=== PATIENT | female | born 2000 | race Caucasian/White ===

== ENCOUNTER 2024-11-23 12:30 | Outpatient (CLI) | payer OTHER, SELFPAY ==
[2024-11-23 13:52] LABS: Add Urine Microscopic? YES; Appearance Urine Cloudy (Clear); Bacteria Urine 4+ /hpf; Bilirubin Urine Negative (Negative); Blood Urine Negative (Negative); Color Urine Yellow (Yellow); Glucose Urine UA Negative (Negative); Ketones Urine Negative (Negative); Leukocyte Esterase Ur 3+ LEU/UL (Negative); Nitrate Urine Negative (Negative); Non Pathogenic Casts 0-2; Protein Urine Negative (Negative); RBC Urine 0-2 /hpf (0-2); Specific Grav Ur 1.018 (1.001-1.035); Squamous Epithelial Cell Urine Moderate /hpf (Few); Urobilinogen Urine 0.2 mg/dL (<2.0); WBC Urine 21-50 /hpf (0-3); pH Urine 6.5 (5.0-9.0)
[2024-11-23 13:58] LABS: OBXCEM ROM Plus Negative (Negative)
--- OUTSIDE RECORDS SUMMARY | 2024-11-25 00:24 | XMS_ITS ---
Author Organization Unknown Address [address] [place] [address] [phone] Phone Care Team Providers Care Frame Cleaner Name Role Phone BRAVO MARKEL Attending Unavailable LYN THORNE Primary Unavailable Immunization Immunization Date Status Additional Notes Code Code System MMR 06/12/2003 Completed 03 CVX MMR 06/16/2007 Completed 03 CVX IPV 2002 Completed 10 CVX IPV 03/16/2003 Completed 10 CVX IPV 04/24/2003 Completed 10 CVX IPV 06/16/2007 Completed 10 CVX DTaP 2002 Completed 20 CVX DTaP 03/16/2003 Completed 20 CVX DTaP 04/24/2003 Completed 20 CVX DTaP 11/08/2003 Completed 20 CVX DTaP 06/16/2007 Completed 20 CVX varicella 06/12/2003 Completed 21 CVX varicella 06/16/2007 Completed 21 CVX Hib-Hep B 2002 Completed 51 CVX Hib-Hep B 03/16/2003 Completed 51 CVX Hib-Hep B 06/12/2003 Completed 51 CVX Hep A, ped/adol, 2 dose 07/28/2017 Completed 83 CVX Hep A, ped/adol, 2 dose 06/06/2014 Completed 83 CVX influenza, unspecified formulation 07/26/2003 Completed 88 CVX influenza, unspecified formulation 11/08/2003 Completed 88 CVX pneumococcal conjugate PCV 7 2002 Completed 100 CVX pneumococcal conjugate PCV 7 04/24/2003 Completed 100 CVX pneumococcal conjugate PCV 7 06/12/2003 Completed 100 CVX pneumococcal conjugate PCV 7 11/08/2003 Completed 100 CVX meningococcal MCV4P 06/06/2014 Completed 114 CVX Tdap 06/06/2014 Completed 115 CVX Tdap 02/09/2024 Completed 115 CVX Meningococcal MCV4O 04/25/2020 Completed 136 CVX Influenza, split virus, quadrivalent, PF 07/28/2017 Completed 150 CVX meningococcal B, OMV 04/25/2020 Completed 163 CVX HPV9 07/28/2017 Completed 165 CVX HPV9 06/06/2014 Completed 165 CVX COVID-19, mRNA, LNP-S, PF, 1 00 mcg/0.5mL dose or 50 mcg/0.25mL dose 01/25/2021 Completed 207 CVX COVID-19, mRNA, LNP-S, PF, 1 00 mcg/0.5mL dose or 50 mcg/0.25mL dose 01/09/2022 Completed 207 CVX Results TEST SERUM - Colle ct Date/Time: 01/13/2024 09:11 [facility] ID: [id number] [address] [place], [place], [id number] LOINC: Test Value Unit Reference Range Code Code System Flag SERUM PREG NEGATIVE Social History Type Status Start Date End Date Code Code Syst em Smoking History Never smoker (Never Smoked) 904804215 SNOMED CT Sex Female Assessment You had the following problems:OTHER GENERAL SYMPTOMS AND SIGNSABDOMINAL PAINENCOUNTER FOR SCREENING FOR INFECTIONS WITH A PREDOMINANTLY SEXUAL MODE OF TRANSENCOUNTER FOR SCREENING FOR RESPIRATORY TUBERCULOSISLEFT LOWER QUADRANT PAINENCOUNTER FOR GYNECOLOGICAL EXAMINATION (GENERAL) (ROUTINE) WITHOUT ABNORMAL FIN Hospital Discharge Instructions Should you have any questions prior to discharge, please contact a member of your healthcare team. If you have left the hospital and have any questions, please contact your primary care physician. Reason For Referral No Data Found Problems Problem Start Date Resolved Date Status Code Code System OTHER GENERAL SYMPTOMS AND SIGNS active 500648087 SNOMED-CT ABDOMINAL PAIN active 59088308 SNOME D-CT ENCOUNTER FOR SCREENING FOR INFECTIONS WITH A PREDOMINANTLY SEXUAL MODE OF TRANS active 519991122 SNOMED- CT ENCOUNTER FOR SCREENING FOR RESPIRATORY TUBERCULOSIS active 268773129 SNO MED-CT LEFT LOWER QUADRANT PAIN active 16631 6002 SNOMED-CT ENCOUNTER FOR GYNECOLOGICAL EXAMINATION (GENERAL) (ROUTINE) WITHOUT ABNORMAL FIN active 20321729 SNOMED- CT Plan of Treatment No Data Found Encounters Encounter Diagnosis Start Date Code Code Sys tem Excessive and frequent menstruation with regular cycle 01/13/2024 SNOMED-CT Personal Care Team Section Performer Name Performer Role Active Date Inactive YULIANA Garcia PCP - Primary care physician 2022-09-10
--- OUTSIDE RECORDS SUMMARY | 2024-11-25 00:24 | XMS_ITS ---
Author Organization Unknown Address [address] [place] [address] [phone] Phone Care Team Providers Care Perinatal Social Worker Name Role Phone BRIAN JENSENH Attending Unavailable LYN THORNE Primary Unavailable Immunization [...] mcg/0.25mL dose 01/09/2022 Completed 207 CVX Results RESPIRATORY 4 PLEX COVID FLU RSV PCR - Collect Date/Time: 09/29/2023 10:15 [facility] ID: [id number] [address] [place], [place], [id number] LOINC: 30144-9 Test Value Unit Reference Range Code Code System Flag SARS CoV2 PCR NEGATIVE FLU A PCR NEGATIVE FLU B PCR NEGATIVE RSV PCR NEGATIVE SEND TO [facility]? YES A Social History Type Status Start Date End Date Code Code Syst em Smoking History Never smoker (Never Smoked) 209619859 SNOMED CT Sex Female Assessment You had [...] System OTHER GENERAL SYMPTOMS AND SIGNS active 792370212 SNOMED-CT ABDOMINAL PAIN active 81283609 SNOME D-CT ENCOUNTER FOR SCREENING FOR INFECTIONS WITH A PREDOMINANTLY SEXUAL MODE OF TRANS active 691761433 SNOMED- CT ENCOUNTER FOR SCREENING FOR RESPIRATORY TUBERCULOSIS active 894337319 SNO MED-CT LEFT LOWER QUADRANT PAIN active 77058 6002 SNOMED-CT ENCOUNTER FOR GYNECOLOGICAL EXAMINATION (GENERAL) (ROUTINE) WITHOUT ABNORMAL FIN active 76041925 SNOMED- CT Plan of Treatment No Data Found Encounters Encounter Diagnosis Start Date Code Code Sys tem Nasal congestion 09/29/2023 37063816 SNOMED-CT Personal Care Team Section Performer Name Performer Role Active Date Inactive YULIANA Garcia PCP - Primary care physician 2022-09-10
--- OUTSIDE RECORDS SUMMARY | 2024-11-25 00:24 | XMS_ITS ---
Author Organization Unknown Address [address] [place] [phone] Phone Care Team Providers Care Gmat Instructor Name Role Phone BRIAN JENSENH Attending Unavailable [...] COVID FLU RSV PCR - Collect Date/Time: 10/21/2023 14:45 [facility] ID: [id number] [address] [place], [place], [phone] LOINC: 20068-4 Test Value Unit Reference Range Code Code System Flag SARS CoV2 PCR NEGATIVE FLU A PCR NEGATIVE FLU B PCR NEGATIVE RSV PCR NEGATIVE SEND TO [facility]? YES A Social History Type Status Start Date End Date Code Code Syst em Smoking History Never smoker (Never Smoked) 028261482 SNOMED CT Sex Female Assessment You had [...] System OTHER GENERAL SYMPTOMS AND SIGNS active 113044087 SNOMED-CT ABDOMINAL PAIN active 32584656 SNOME D-CT ENCOUNTER FOR SCREENING FOR INFECTIONS WITH A PREDOMINANTLY SEXUAL MODE OF TRANS active 699723204 SNOMED- CT ENCOUNTER FOR SCREENING FOR RESPIRATORY TUBERCULOSIS active 607287662 SNO MED-CT LEFT LOWER QUADRANT PAIN active 06586 6002 SNOMED-CT ENCOUNTER FOR GYNECOLOGICAL EXAMINATION (GENERAL) (ROUTINE) WITHOUT ABNORMAL FIN active 97778164 SNOMED- CT Plan of Treatment No Data Found Encounters Encounter Diagnosis Start Date Code Code Sys tem Other general symptoms and signs 10/21/2023 SNOMED-CT Personal Care Team Section Performer Name Performer Role Active Date Inactive Da YULIANA Alas PCP - Primary care physician 2022-09-10
--- OUTSIDE RECORDS SUMMARY | 2024-11-25 00:25 | XMS_ITS ---
Author Organization Unknown Address [address] [place] [address] [phone] Phone Care Team Providers Care Diesel Engine Fitter Name Role Phone SCOOBY MONTOYA Attending Unavailable LYN THORNE Primary Unavailable Immunization [...] mcg/0.25mL dose 01/09/2022 Completed 207 CVX Results BETA HCG-QUANT - Collect Bertram e/Time: 07/28/2024 08:44 [facility] ID: [id number] [address] [place], [place], [id number] LOINC: 66346-7 Test Value Unit Reference Range Code Code System Flag BETA HCG-QUANT 8219.20 mIU/mL L=0.00 H=6.00 53039-4 LOINC H Social History Type Status Start Date End Date Code Code Syst em Smoking History Never smoker (Never Smoked) 949838162 SNOMED CT Sex Female Assessment You had [...] System OTHER GENERAL SYMPTOMS AND SIGNS active 546113743 SNOMED-CT ABDOMINAL PAIN active 62495483 SNOME D-CT ENCOUNTER FOR SCREENING FOR INFECTIONS WITH A PREDOMINANTLY SEXUAL MODE OF TRANS active 865339959 SNOMED- CT ENCOUNTER FOR SCREENING FOR RESPIRATORY TUBERCULOSIS active 027717960 SNO MED-CT LEFT LOWER QUADRANT PAIN active 65606 6002 SNOMED-CT ENCOUNTER FOR GYNECOLOGICAL EXAMINATION (GENERAL) (ROUTINE) WITHOUT ABNORMAL FIN active 60886492 SNOMED- CT Plan of Treatment No Data Found Encounters Encounter Diagnosis Start Date Code Code Sys tem Encounter for test, result positive 07/28/20 SNOMED-CT Personal Care Team Section Performer Name Performer Role Active Date Inactive YULIANA Garcia PCP - Primary care physician 2022-09-10
--- OUTSIDE RECORDS SUMMARY | 2024-11-25 00:25 | XMS_ITS ---
Author Organization Unknown Address [address] [place] [address] [phone] Phone Care Team Providers Care Cream Dipper Name Role Phone ALLYSSA GREENBERG Attending Unavailable LYN THORNE Primary Unavailable Immunization [...] mcg/0.25mL dose 01/09/2022 Completed 207 CVX Results CBC W/ DIFF - Collect Date/T car: 03/04/2024 11:10 [facility] ID: [id number] [address] [place], [place], [id number] LOINC: 69556-2 Test Value Unit Reference Range Code Code System Flag WBC 10.2 10^3uL L=4.8 H=10.8 RBC 4.45 10^6uL L=4.20 H=5.40 HEMOGLOBIN 13.2 g/dL L=12.0 H=16.0 718-7 LOINC HEMATOCRIT 39.1 VOL% L=37.0 H=47.0 4544-3 LOINC MCV 87.9 fL L=81.0 H=99.0 MCH 29.7 pg L=27.0 H=32.0 MCHC 33.8 g/dL L=32.0 H=36.0 PLATELETS 313 10^3uL L=100 H=400 94950-0 LOINC RDW 11.8 % L=11.7 H=15.5 %GRAN 62.7 % L=40.0 H=70.0 83595-0 LOINC %LYMPH 31.1 % L=20.0 H=45.0 736-9 LOINC %MONO 4.9 % L=2.0 H=10.0 68268-2 LOINC %EOS 0.7 % L=0.0 H=6.0 713-8 LOINC %BASO 0.3 % L=0.0 H=3.0 706-2 LOINC #NEUT 6.4 10^3uL L=1.9 H=7.6 87212-1 LOINC #LYMPH 3.2 10^3uL L=0.9 H=4.9 02866-9 LOINC #MONO 0.5 10^3uL L=0.1 H=0.9 54810-4 LOINC #EOS 0.1 10^3uL L=0.0 H=0.6 712-0 LOINC #BASO 0.03 10^3uL L=0.00 H=0.10 83208-9 LOINC #IM GRANS 0.0 10^3uL L=0.0 H=7.0 03183-3 LOINC %IM GRANS 0.3 % L=0.0 H=5.0 08344-5 LOINC %NRB 0.0 L=0.0 H=0.2 91103-9 LOINC #NRB 0.000 L=0.000 H=0.012 23404-2 LOINC MANUAL DIFF NOT INDICATED RBC MORPH NOT INDICATED COMPREHENSIVE METABOLIC PANE L - Collect Date/Time: 03/04/2024 11:10 [facility] ID: [id number] [address] [place], [place], [id number] LOINC: 93923-9 Test Value Unit Reference Range Code Code System Flag FASTING NO BUN 9 mg/dL L=7 H=20 3094-0 LOINC CREATININE 0.80 mg/dL L=0.52 H=1.04 2160-0 LOINC GLUCOSE 88 mg/dL L=74 H=106 2345-7 LOINC SODIUM 140 mmol/L L=132 H=144 2951-2 LOINC POTASSIUM 3.7 mmol/L L=3.5 H=5.1 2823-3 LOINC CHLORIDE 106 mmol/L L=98 H=107 2075-0 LOINC CO2 22.0 mmol/L L=22.0 H=30.0 8-9 LOINC ANION GAP 16 L=10 H=20 47017-6 LOINC OSMOLALITY 288 mOs/kG L=280 H=296 01816-4 LOINC BUN/CREAT 11.3 3097-3 LOINC CALCIUM 9.7 mg/dL L=8.3 H=10.5 54729-4 LOINC AST 25 U/L L=15 H=46 1920-8 LOINC ALT 26 U/L L=9 H=72 1742-6 LOINC ALKALINE PHOS 58 U/L L=38 H=126 6768-6 LOINC TOTAL BILI 0.3 mg/dL L=0.2 H=1.3 1975-2 LOINC ALBUMIN 4.2 G/dL L=3.5 H=5.0 1751-7 LOINC TOTAL PROTEIN 7.6 g/L L=6.3 H=8.2 2885-2 LOINC A/G RATIO 1.2 37328-8 LOINC AGE 23 61853-1 LOINC eGFR NON-AFR 96 ml/min eGFR AFR AMER 116 ml/min TSH / REFLEX FT4 - Collect D ate/Time: 03/04/2024 11:10 [facility] ID: [id number] [address] [place], [place], [id number] LOINC: Test Value Unit Reference Range Code Code System Flag TSH 0.685 uIU/L L=0.470 H=4.680 71281-7 LOINC Social History Type Status Start Date End Date Code Code Syst em Smoking History Never smoker (Never Smoked) 535342786 SNOMED CT Sex Female Assessment You had [...] System OTHER GENERAL SYMPTOMS AND SIGNS active 866631508 SNOMED-CT ABDOMINAL PAIN active 27795637 SNOME D-CT ENCOUNTER FOR SCREENING FOR INFECTIONS WITH A PREDOMINANTLY SEXUAL MODE OF TRANS active 390479503 SNOMED- CT ENCOUNTER FOR SCREENING FOR RESPIRATORY TUBERCULOSIS active 143255478 SNO MED-CT LEFT LOWER QUADRANT PAIN active 90455 6002 SNOMED-CT ENCOUNTER FOR GYNECOLOGICAL EXAMINATION (GENERAL) (ROUTINE) WITHOUT ABNORMAL FIN active 45611720 SNOMED- CT Plan of Treatment No Data Found Encounters Encounter Diagnosis Start Date Code Code Sys tem Other fatigue 03/04/2024 SNOMED-CT Personal Care Team Section Performer Name Performer Role Active Date Inactive YULIANA Garcia PCP - Primary care physician 2022-09-10
--- OUTSIDE RECORDS SUMMARY | 2024-11-25 00:25 | XMS_ITS ---
Author Organization Unknown Address [address] [place] [address] [phone] Phone Care Team Providers Care Central Sterile Tech Name Role Phone ALLYSSA GREENBERG Attending Unavailable [...] Results BETA HCG-QUANT - Collect Bertram e/Time: 04/29/2024 14:20 [facility] ID: [id number] [address] [place], [place], [phone] LOINC: 47345-7 Test Value Unit Reference Range Code Code System Flag BETA HCG-QUANT < 2.39 mIU/mL L=0.00 H=6.00 41589-0 LOINC Social History Type Status Start Date End Date Code Code Syst em Smoking History Never smoker (Never Smoked) 197414115 SNOMED CT Sex Female Assessment You had [...] System OTHER GENERAL SYMPTOMS AND SIGNS active 075678942 SNOMED-CT ABDOMINAL PAIN active 05291733 SNOME D-CT ENCOUNTER FOR SCREENING FOR INFECTIONS WITH A PREDOMINANTLY SEXUAL MODE OF TRANS active 020813602 SNOMED- CT ENCOUNTER FOR SCREENING FOR RESPIRATORY TUBERCULOSIS active 034501821 SNO MED-CT LEFT LOWER QUADRANT PAIN active 00346 6002 SNOMED-CT ENCOUNTER FOR GYNECOLOGICAL EXAMINATION (GENERAL) (ROUTINE) WITHOUT ABNORMAL FIN active 45534244 SNOMED- CT Plan of Treatment No Data Found Encounters Encounter Diagnosis Start Date Code Code Sys tem test positive 04/29/2024 [id number] [facility] ED-CT Personal Care Team Section Performer Name Performer Role Active Date Inactive YULIANA Garcia PCP - Primary care physician 2022-09-10
--- OUTSIDE RECORDS SUMMARY | 2024-11-25 00:25 | XMS_ITS | Data Portability ---
Author Organization [facility] [place] Address [address] [place] [address] [place] [address] Care Team Providers Care Chief Cruiser Name Role Phone ABHILASH PRINCE Primary Care Provider YARI SPIVEY Primary Care Provider Assessment No assessment recorded. Plan of Treatment Reminders Order Date Submit Date Provider Last Modified By Organization Details Last Modified Time Details Appointments U/S OB BASELIN E 2024 01:30P M ULTRASOUND Not available Not available Not available OB ROUTINE 2024 02:00P M SADIE RABAGO MD Not available Not available Not available Lab drug screen, urine 2023 024 [place], [address], [place], [address], 10/21/2024 16:15:15 Referral None recorde d. Procedures None recorde d. Surgeries None recorde d. Imaging US, obstetr ic, nuchal translu cency 2023 [address], [address], [place], [address], 09/23/2024 21:15:15 US, obstetr ic, 2nd or 3rd trimest er [facility]24 [facility] [place], [address], [place], [address], 11/14/2024 18:54:09 Medication Orders None recorde d. Patient TargetsNo targets recorded. Patient InstructionsNo instructions recorded. Reason for Referral None Reported. Results Created Date Observation Date Name Description Value Unit Range Abnormal Flag Note LastModifiedBy Organization Detail LastModifiedTime 09/09/20 24 09/09/2024 [UNIT Y] ANEUP LOIDY NIPT fraction 5.6% normal Not Available [facility] [address] [facility], [place], [address], 09/09/2024 02:02:32 09/09/20 24 09/09/2024 [UNIT Y] ANEUP LOIDY NIPT 22Q11.2 microdeletio n LOW RISK <1 in 10,000 normal Not Available [facility] [address] [facility], [place], [address], 09/09/2024 02:02:32 09/09/20 24 09/09/2024 [UNIT Y] ANEUP LOIDY NIPT sex chromosome aneuploidy NOT DETECT ED normal Not Available [facility] [address] [facility], [place], [address], 09/09/2024 02:02:32 09/09/20 24 09/09/2024 [UNIT Y] ANEUP LOIDY NIPT monosomy X LOW RISK <1 in 10,000 normal Not Available [facility] [address] [facility], [place], [address], 09/09/2024 02:02:32 09/09/20 24 09/09/2024 [UNIT Y] ANEUP LOIDY NIPT trisomy 13 LOW RISK <1 in 10,000 normal Not Available [facility] [address] [facility], [place], [address], 09/09/2024 02:02:32 09/09/20 24 09/09/2024 [UNIT Y] ANEUP LOIDY NIPT trisomy 18 LOW RISK <1 in 10,000 normal Not Available [facility] [address] [facility], [place], [address], 09/09/2024 02:02:32 09/09/20 24 09/09/2024 [UNIT Y] ANEUP LOIDY NIPT trisomy 21 LOW RISK <1 in 10,000 normal Not Available [facility] [address] [facility] [address], [place], [address], 09/09/2024 02:02:32 09/09/20 24 09/09/2024 [UNIT Y] ANEUP LOIDY NIPT sex MALE normal Not Available [facility] [address] [facility] [address], [place], [address], 09/09/2024 02:02:32 09/09/20 24 09/09/2024 [UNIT Y] ANEUP LOIDY NIPT gestation SINGLE TON normal Not Available [facility] [address] [facility] [address], [place], [address], 09/09/2024 02:02:32 09/09/20 24 09/09/2024 [UNIT Y] ANEUP LOIDY NIPT for detailed report, see pdf See PDF normal Not Available [facility] [address] [facility] [address], [place], [address], 09/09/2024 02:02:32 09/09/20 24 09/09/2024 [UNIT Y] VALENTINA Sutherland sickle cell disease/beta -thalassemia /hemoglobino pathies carrier screen NEGATI VE normal Not Available [facility] [address] [facility] [address], [place], [address], 09/09/2024 02:46:19 09/09/20 24 09/09/2024 [UNIT Y] VALENTINA Sutherland alpha-thalas semia carrier screen NEGATI VE normal Not Available [facility] [address] [facility] [address], [place], [address], 09/09/2024 02:46:19 09/09/20 24 09/09/2024 [UNIT Y] VALENTINA Sutherland cystic fibrosis carrier screen NEGATI VE normal Not Available [facility] [address] [facility] [address], [place], [address], 09/09/2024 02:46:19 09/09/20 24 09/09/2024 [UNIT Y] VALENTINA Suhterland spinal muscular atrophy carrier screen NEGATI VE 2 SMN1 copies , SNP not presen t normal Not Available [facility] [address], [place], [address], 09/09/2024 02:46:19 09/09/20 24 09/09/2024 [UNIT Y] VALENTINA Sutherland for detailed report, see pdf See PDF normal Not Available [facility] [address], [place], [address], 09/09/2024 02:46:19 08/26/20 24 08/26/2024 CT/GC AND TRICH OMONA S VAGIN ATUL (RRNA ), URINE chlamydia trachomatis, PCR Negati ve negati ve Not Available [facility] (Lab) [address] [address], [place], [address], 08/27/2024 13:45:02 08/26/20 24 08/26/2024 CT/GC AND TRICH OMONA S VAGIN ATUL (RRNA ), URINE neisseria gonorrhoeae, PCR Negati ve negati ve Not Available [facility] (Lab) [address], [place], [address], 08/27/2024 13:45:02 08/26/20 24 08/26/2024 CT/GC AND TRICH OMONA S VAGIN ATUL (RRNA ), URINE trichomonas vaginalis ribosomal RNA (rrna) Negati ve negati ve Not Available [facility] (Lab) [address] [address], [place], [address], 08/27/2024 13:45:02 09/01/20 24 09/01/2024 CBC W/DIF F WBC 11.1 10'3/ uL 3.5-10 .5 high Not Available [facility] (Lab) [address] [address], [place], [address], 09/02/2024 12:28:15 09/01/20 24 09/01/2024 CBC W/DIF F RBC 4.37 10'6/ uL (based on docume nted legal sex) 3.80-5 .20 Not Available [facility] (Lab) [address], [place], [address], 09/02/2024 12:28:15 09/01/20 24 09/01/2024 CBC W/DIF F HGB 12.9 g/dL (based on docume nted legal sex) 11.6-1 5.4 Not Available [facility] (Lab) [address], [place], [address], 09/02/2024 12:28:15 09/01/20 24 09/01/2024 CBC W/DIF F HCT 38.7 % (based on docume nted legal sex) 34.0-4 5.0 Not Available [facility] (Lab) [address], [place], [address], 09/02/2024 12:28:15 09/01/20 24 09/01/2024 CBC W/DIF F MCV 88.6 fL 80.0-9 9.0 Not Available [facility] (Lab) [address], [place], [address], 09/02/2024 12:28:15 09/01/20 24 09/01/2024 CBC W/DIF F MCH 29.5 pg 27.0-3 4.0 Not Available [facility] (Lab) [address], [place], [address], 09/02/2024 12:28:15 09/01/20 24 09/01/2024 CBC W/DIF F MCHC 33.3 g/dL 32.0-3 5.5 Not Available [facility] (Lab) [address], [place], [address], 09/02/2024 12:28:15 09/01/20 24 09/01/2024 CBC W/DIF F RDW 11.9 % 11.0-1 5.0 Not Available [facility] (Lab) [address], [place], [address], 09/02/2024 12:28:15 09/01/20 24 09/01/2024 CBC W/DIF F plt 305 10'3/ uL 150-40 0 Not Available [facility] (Lab) [address] [address], [place], [address], 09/02/2024 12:28:15 09/01/20 24 09/01/2024 CBC W/DIF F MPV 11.4 fL 8.8-12 .1 Not Available [facility] (Lab) [address] [address], [place], [address], 09/02/2024 12:28:15 09/01/20 24 09/01/2024 CBC W/DIF F NRBC's 0.0 % 0.0 Not Available [facility] (Lab) [address] [address], [place], [address], 09/02/2024 12:28:15 09/01/20 24 09/01/2024 CBC W/DIF F absolute NRBCs 0.0 10'3/ uL no refere nce range establ ished Not Available [facility] (Lab) [address] [address], [place], [address], 09/02/2024 12:28:15 09/01/20 24 09/01/2024 CBC W/DIF F neutrophils 70.9 % 34.0-7 3.0 Not Available [facility] (Lab) [address] [address], [place], [address], 09/02/2024 12:28:15 09/01/20 24 09/01/2024 CBC W/DIF F lymphocytes 23.3 % 15.0-5 0.0 Not Available [facility] (Lab) [address] [address], [place], [address], 09/02/2024 12:28:15 09/01/20 24 09/01/2024 CBC W/DIF F monocytes 4.6 % 1.0-15 .0 Not Available [facility] (Lab) [address], [place], [address], 09/02/2024 12:28:15 09/01/20 24 09/01/2024 CBC W/DIF F eosinophils 0.6 % 0.0-8. 0 Not Available [facility] (Lab) [address] [address], [place], [address], 09/02/2024 12:28:15 09/01/20 24 09/01/2024 CBC W/DIF F basophils 0.3 % 0.0-2. 0 Not Available [facility] (Lab) [address] [address], [place], [address], 09/02/2024 12:28:15 09/01/20 24 09/01/2024 CBC W/DIF F immature granulocytes 0.3 % no define d refere nce range Not Available [facility] (Lab) [address] [address], [place], [address], 09/02/2024 12:28:15 09/01/20 24 09/01/2024 CBC W/DIF F absolute neutrophils 7.9 10'3/ uL 1.5-8. 0 Not Available [facility] (Lab) [address] [address], [place], [address], 09/02/2024 12:28:15 09/01/20 24 09/01/2024 CBC W/DIF F absolute lymphocytes 2.6 10'3/ uL 1.0-4. 0 Not Available [facility] (Lab) [address] [address], [place], [address], 09/02/2024 12:28:15 09/01/20 24 09/01/2024 CBC W/DIF F absolute monocytes 0.5 10'3/ uL 0.2-1. 0 Not Available [facility] (Lab) [address] [address], [place], [address], 09/02/2024 12:28:15 09/01/20 24 09/01/2024 CBC W/DIF F absolute eosinophils 0.1 10'3/ uL 0.0-0. 6 Not Available [facility] (Lab) [address] [address], [place], [address], 09/02/2024 12:28:15 09/01/20 24 09/01/2024 CBC W/DIF F absolute basophils 0.0 10'3/ uL 0.0-0. 3 Not Available [facility] (Lab) [address] [address], [place], [address], 09/02/2024 12:28:15 09/01/20 24 09/01/2024 CBC W/DIF F absolute immature granulocytes 0.0 10'3/ uL 0.00-0 .10 2023 3:16 AM: P indic ates parti al resul ts on a panel have been relea sed. Addit ional resul ts will follo w. 2023 3:16 AM: This resul t has been final verif ied. No addit ional or mojica ed resul ts are expec kalin. Not Available [facility] (Lab) [address], [place], [address], 09/02/2024 12:28:15 09/01/20 24 09/01/2024 HEPAT ITIS B SURFA CE ANTIG EN hepatitis B surface antigen Non-re active non-re active This assay was perfo rmed using [employer] n reage nts and test kits. Value s obtai palmer with other assay metho ds or kits canno t be used inter mojica eably . Not Available [facility] (Lab) [address], [place], [address], 09/02/2024 12:28:16 09/01/20 24 09/01/2024 HIV 1/2 ANTIG EN/AN TIBOD Y, REFLE X CONFI RMATI ON HIV antigen/anti body Nonrea ctive nonrea ctive HIV-1 antig en and HIV-1 /HIV- 2 antib odies were not detec kalin. No labor atory evide nce of HIV infec tion. Not Available [facility] (Lab) [address], [place], [address], 09/02/2024 12:28:16 09/01/20 24 09/01/2024 HEPAT ITIS C ANTIB IRAM SCREE N, REFLE X TO CONFI RMATI ON hepatitis C antibody Non-re active non-re active Antib odies to HCV Not Detec kalin, does not exclu de the possi bilit y of expos ure to HCV. Not Available [facility] (Lab) [address], [place], [address], 09/02/2024 12:28:16 09/01/20 24 09/01/2024 HEMOG LOBIN A1C hemoglobin A1C 5.0 % 0-5.6 The Ameri can [employer] quinn [employer] iatio n recom mends that a prima ry goal of thera py bruce d be a HBA1C of < 7% and that physi cians shoul d reeva luate the treat ment regim en in patie nts with HBA1C value s consi stent ly > 8%. <5.7% Mira l 5.7 - 6.4% Incre ased risk for diabe quinn >=6.5 % Diagn ostic of diabe quinn <7.0% Goal of thera py >8.0% Actio n sugge sted Not Available [facility] (Lab) [address], [place], [address], 09/02/2024 12:28:16 09/01/20 24 09/01/2024 RUBEL LA IGG ANTIB IRAM, QUANT rubella antibodies, IgG Reacti ve reacti ve Not Available [facility] (Lab) [address], [place], [address], 09/02/2024 12:28:17 09/01/20 24 09/01/2024 RUBEL LA IGG ANTIB IRAM, QUANT rubella antibodies, IgG quant 20.2 IU/mL >=10 Non-r eacti ve (Non- Immun e) <10 IU/mL React marlon (Immu ne) > or = 10 IU/mL Not Available [facility] (Lab) [address], [place], [address], 09/02/2024 12:28:17 09/01/20 24 09/01/2024 TYPE/ RH/SC REEN ABO/Rh type O POS Not Available [facility] (Lab) [address], [place], [address], 09/02/2024 12:28:17 09/01/20 24 09/01/2024 TYPE/ RH/SC REEN antibody screen NEG Not Available [facility] (Lab) [address], [place], [address], 09/02/2024 12:28:17 09/01/20 24 09/01/2024 TYPE/ RH/SC REEN exp date 2023 23:59 Not Available [facility] (Lab) [address], [place], [address], 09/02/2024 12:28:17 09/01/20 24 09/01/2024 RPR SCREE N, REFLE X TITER /CONF IRMAT ION RPR screen Nonrea ctive nonrea ctive Not Available [facility] (Lab) [address], [place], [address], 09/02/2024 12:28:17 09/23/20 24 09/23/2024 CULTU RE: URINE result report SEE RESULT S BELOW Test: Cultu re: Urine Speci men Sourc e: Urine - Clean Catch Speci men Type: Urine Speci men Date: 09/23 1546 Resul t Date: 09/25 0359 Resul t Statu s: Final resul t Abnor mal: No Resul ting Lab: [facility] [address] [facility] [address] Tel: CULTU RE ----- ----- ----- --- Cultu re resul t (>=3 organ isms prese nt) indic ates possi ble conta minat ion. Repea t cultu re if sympt oms indic ate. Not Available [facility] (Lab) [address], [place], [address], 09/25/2024 05:03:05 10/21/20 24 10/21/2024 drug scree n, urine Amphetamines : negati ve Not Available [facility] [address], [place], [address], 10/21/2024 16:09:09 10/21/20 24 10/21/2024 drug scree n, urine Cannabinoids : negati ve Not Available [place] [address], [place], [address], 10/21/2024 16:09:09 10/21/20 24 10/21/2024 drug scree n, urine Cocaine: negati ve Not Available [place] [address], [place], [address], 10/21/2024 16:09:09 10/21/20 24 10/21/2024 drug scree n, urine Opiates: negati ve Not Available [place] [address], [place], [address], 10/21/2024 16:09:09 10/21/20 24 10/21/2024 drug scree n, urine Phenocyclidi ne: negati ve Not Available [place] [address], [place], [address], 10/21/2024 16:09:09 10/21/20 24 10/21/2024 drug scree n, urine Barbiturates : negati ve Not Available [place] [address], [place], [address], 10/21/2024 16:09:09 10/21/20 24 10/21/2024 drug scree n, urine Benzodiazepi sacha: negati ve Not Available [place] [address], [place], [address], 10/21/2024 16:09:09 10/21/20 24 10/21/2024 drug scree n, urine Ethanol: negati ve Not Available [place] [address], [place], [address], 10/21/2024 16:09:09 10/21/20 24 10/21/2024 drug scree n, urine Hallucinogen s: negati ve Not Available [place] [address], [place], [address], 10/21/2024 16:09:09 10/21/20 24 10/21/2024 drug scree n, urine Inhalants: negati ve Not Available [place] [address], [place], [address], 10/21/2024 16:09:09 10/21/20 24 10/21/2024 drug scree n, urine Anabolic Steroids: negati ve Not Available [place] [address], [place], [address], 10/21/2024 16:09:09 10/21/20 24 10/21/2024 drug scree n, urine Other: negati ve Not Available [place] [address], [place], [address], 10/21/2024 16:09:09 11/14/19 25 11/14/2024 CULTU RE: HERPE S SIMPL EX VIRUS (HSV) , REFLE X TYPIN G source VESICL E Not Available [facility] (Lab) [address], [place], [address], 11/21/2024 08:21:48 11/14/19 25 11/14/2024 CULTU RE: HERPE S SIMPL EX VIRUS (HSV) , REFLE X TYPIN G hsv culture, body fluid ISOLAT ED abnormal Not Available [facility] (Lab) [address], [place], [address], 11/21/2024 08:21:48 11/14/19 25 11/14/2024 CULTU RE: HERPE S SIMPL EX VIRUS (HSV) , REFLE X TYPIN G hsv 2 ISOLAT ED abnormal Not Available [facility] (Lab) [address], [place], [address], 11/21/2024 08:21:48 11/14/19 25 11/14/2024 CULTU RE: HERPE S SIMPL EX VIRUS (HSV) , REFLE X TYPIN G hsv 1 TNP TEST( S) NOT PERFO RMED: HSV TYPE 1: * Test not perfo rmed. * * The incid ence of HSV 1 infec tion * * in the prese nce of HSV 2 (dual * * infec tion) is extre meenu rare. * Perfo rming Organ izati on Infor nicole n: Site ID: CB Name: [facility] jerrod Covarrubias Addre ss: [address] [place] [address] Direc tor: Rupa beavers V Anatoliy s Not Available [facility] (Lab) [address], [place], [address], 11/21/2024 08:21:48 08/26/20 24 08/26/2024 US, suyapa ojhnson, 1st trime ster No observ ation record ed. NAFISA [address] [facility], [place], [address], 09/03/2024 01:39:46 09/23/20 24 09/23/2024 US, obste tric, nucha l trans lucen cy No observ ation record ed. [facility] [address], [place], [address], 09/23/2024 17:03:01 09/23/20 24 09/23/2024 US, obste tric, nucha l trans lucen cy No observ ation record ed. [email or web address] [address], [place], [address], 09/23/2024 21:00:08 11/14/19 25 11/14/2024 US, obste tric, 2nd or 3rd trime ster No observ ation record ed. [facility] [address], [place], [address], 11/14/2024 18:05:08 11/14/19 25 11/14/2024 US, obste tric, 2nd or 3rd trime ster No observ ation record ed. [email or web address] [address], [place], [address], 11/15/2024 00:25:12 Result Notes None recorded. Problems Name Problem SNOMED Code Status Onset Date Resolution Date Notes Provider Name and Address Organization Details Recorded Time Mixed anxiety and depressive disorder 003290424 Active 2022 Abby Cruz MD [address], [place], [address], [place] [facility] 3 15:27:32 Diverticuli tis 300308124 Active 2022 Abby Cruz MD [address], [place], [address], [place] [facility] 3 15:27:39 85045382 Active 2023 Rosanna Hobson null, [facility] 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 10:02:56 Herpes simplex 01447505 Active HSV 2 Valtex @ 36wks Cadence Fay [facility] 10:02:56 Problem Notes None recorded. Procedures Surgical History Date Name Laterality Status Provider Name and Address Organization Details Recorded Time 06/02/2023 Date of Last Pap Smear completed Rosanna Hobson [facility] 09/23/2024 12:46:58 Imaging Results Imaging Date Name Status LastModified by Organization Details LastModified Time 08/26/2024 US, obstetric, 1st trimester completed NAFISA [address], [place], [address], 09/03/2024 01:39:46 09/23/2024 US, obstetric, nuchal translucency completed [email or web address] [address], [place], [address], 09/23/2024 17:03:01 09/23/2024 US, obstetric, nuchal translucency completed [email or web address] [address], [place], [address], 09/23/2024 21:00:08 11/14/2024 US, obstetric, 2nd or 3rd trimester completed [email or web address] [place] [address], [place], [address], 11/14/2024 18:05:08 11/14/2024 US, obstetric, 2nd or 3rd trimester completed [email or web address] [address], [place], [address], 11/15/2024 00:25:12 Procedure Notes None recorded. Medical Equipment None Reported. Allergies No known drug allergies Medications Name Sig Start Date Stop Date Status Note LastModified by Organization Details LastModified Time cetirizine 10 mg tablet 08/26 completed Not Available Not Available Not Available ibuprofen 800 mg tablet 02/27 completed Not Available Not Available Not Available nystatin 100,000 unit/gram topical ointment 02/27 completed Not Available Not Available Not Available hydrocodone 5 mg-acetaminop hen 325 mg tablet 02/27 completed Not Available Not Available Not Available sumatriptan 25 mg tablet 02/27 completed Not Available Not Available Not Available ondansetron HCl 4 mg tablet active Not Available Not Available Not Available famotidine 40 mg tablet 02/27 completed Not Available Not Available Not Available prednisone 20 mg tablet 02/27 completed Not Available Not Available Not Available fluoxetine 10 mg tablet Take 1 tablet every day by oral route. 12/22 completed Not Available Not Available Not Available topiramate 25 mg tablet 08/26 completed Not Available Not Available Not Available metronidazole 500 mg tablet 12/22 completed Not Available Not Available Not Available hydroxyzine HCl 50 mg tablet 12/22 completed Not Available Not Available Not Available acetaminophen 300 mg-codeine 30 mg tablet 02/27 completed Not Available Not Available Not Available ciprofloxacin 500 mg tablet 12/22 completed Not Available Not Available Not Available omeprazole 40 mg capsule,delay ed release 02/27 completed Not Available Not Available Not Available triamcinolone acetonide 0.1 % topical cream 02/27 completed Not Available Not Available Not Available ondansetron 8 mg disintegratin g tablet 02/27 completed Not Available Not Available Not Available amoxicillin 875 mg tablet 12/22 completed Not Available Not Available Not Available famotidine 20 mg tablet 02/27 completed Not Available Not Available Not Available dexamethasone 1 mg tablet 08/26 completed Not Available Not Available Not Available doxycycline monohydrate 100 mg capsule 02/27 completed Not Available Not Available Not Available venlafaxine 37.5 mg tablet 11/14 completed Not Available Not Available Not Available oseltamivir 75 mg capsule 02/27 completed Not Available Not Available Not Available nystatin 100,000 unit/gram topical cream 08/26 completed Not Available Not Available Not Available dexamethasone 4 mg tablet 12/22 completed Not Available Not Available Not Available sertraline 25 mg tablet 11/14 completed Not Available Not Available Not Available ondansetron 4 mg disintegratin g tablet 08/26 completed Not Available Not Available Not Available fluoxetine 20 mg capsule active Not Available Not Available N ot Available fluticasone propionate 50 mcg/actuation nasal spray,suspens ion 08/26 completed Not Available Not Available Not Available dicyclomine 10 mg capsule 12/22 completed Not Available Not Available Not Available naproxen 500 mg tablet 02/27 completed Not Available Not Available Not Available amoxicillin 875 mg-potassium clavulanate 125 mg tablet 08/26 completed Not Available Not Available Not Available topiramate 50 mg tablet 08/26 completed Not Available Not Available Not Available 2023 active Not Available Not Available Not Avai lable Natroba 0.9 % topical suspension 02/27 completed Not Available Not Available Not Available Vitamins Plus Low Iron 27 mg iron-1 mg tablet active Not Available Not Available Not Available Vienva 0.1 mg-20 mcg tablet Take 1 tablet every day by oral route. 11/14 completed Not Available Not Available Not Available EnilloRing 0.12 mg-0.015 mg/24 hr vaginal ring 08/26 completed Not Available Not Available Not Available Vitals Date Recorded Body height Body mass index (BMI) Body weight Systolic blood pressure Diastolic blood pressure Provider Name and Address Organization Details Last Updated DateTime 09/23/2024 157.48 cm 31.3 kg/m2 00318.3 g 117 mm[Hg] 82 mm[Hg] Rosanna Hobson [facility] 4 12:46:05 Date Recorded Body weight Body mass index (BMI) Body height Systolic blood pressure Diastolic blood pressure Provider Name and Address Organization Details Last Updated DateTime 10/21/2024 76920.29 527 g 31.3 kg/m2 157.48 cm 120 mm[Hg] 83 mm[Hg] Zeny Joiner [facility] 4 16:05:32 Date Recorded Body weight Body mass index (BMI) Body height Systolic blood pressure Diastolic blood pressure Provider Name and Address Organization Details Last Updated DateTime 11/14/2024 73381.29 527 g 31.3 kg/m2 157.48 cm 123 mm[Hg] 82 mm[Hg] Zeny Joiner [facility] 16:47:02 Social History Question Answer Notes LastModified by Organizat ion Details LastModified Time Tobacco Smoking Status Never Smoker Manuela Townsend stefan, [facility] 12/15/2022 16:18:11 Do You Have An Advance Directive? No Information not available 02/26/2022 What Is Your Level Of Alcohol Consumption? None Information not available 02/26/2022 Are You Blind Or Do You Have Difficulty Seeing? No Information not available 02/26/2022 What Is Your Level Of Caffeine Consumption? Moderate [email or web address] Information not available 11/14/2024 In The 14 Days Before Symptom Onset, Have You Had Close Contact With A Laboratory-confir med COVID-19 While That Case Was Ill? No Information not available 02/26/2022 In The 14 Days Before Symptom Onset, Have You Had Close Contact With A Person Who Is Under Investigation For COVID-19 While That Person Was Ill? No Information not available 02/26/2022 Have You Been To An Area Known To Be High Risk For COVID-19? No Information not available 02/26/2022 Are You Currently Employed? No [email or web address] Information not available 12/15/2022 Are You Deaf Or Do You Have Serious Difficulty Hearing? No Information not available 02/26/2022 What Type Of Diet Are You Following? SPECIFIC [email or web address] Information not available 11/14/2024 Do You Or Have You Ever Used E-cigarettes Or Vape? Current User Of Electronic Cigarettes [email or web address] Information not available 12/15/2022 What Is The Highest Grade Or Level Of School You Have Completed Or The Highest Degree You Have Received? 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 No Information not available 02/26/2022 Do You Use Protection During Sex? No Information not available 02/26/2022 Do You Use Your Seat Belt Or Car Seat Routinely? Yes Information not available 02/26/2022 Are You Sexually Active? Yes [email or web address] Information not available 12/15/2022 Do You Have Smoke And Carbon Monoxide Detectors In Your Home? Yes Information not available 02/26/2022 How Much Tobacco Do You Smoke? No [email or web address] Information not available 11/14/2024 Do You Feel Stressed (tense, Restless, Nervous, Or Anxious, Or Unable To Sleep At Night)? [id number] [email or web address] Information not available 11/14/2024 Do You Use Any Illicit Or Recreational Drugs? No [email or web address] Information not available 11/14/2024 Do You Use Sunscreen Routinely? Yes Information not available 02/26/2022 Have You Used IV Drugs? No [email or web address] Information not available 11/14/2024 Do You Or Have You Ever Used Any Other Forms Of Tobacco Or Nicotine? Yes [email or web address] Information not available 12/15/2022 Sex: Unknown Functional Status Question Answer Note LastModified by Organizat ion Details LastModified Time Do you have difficulty walking or climbing stairs? No [email or web address] Information not available 12/15/2022 Are you able to walk? [email or web address] Information not available 02/26/2022 Are you able to care for yourself? Yes [email or web address] Information not available 12/15/2022 Do you have difficulty dressing or bathing? No [email or web address] Information not available 12/15/2022 What is your exercise level? Occasional [email or web address] Information not available 11/14/2024 Mental Status None recorded. Family History Relationship Description Onset Age of this Age Resolved Age Notes LastModified by Organization Details LastModified Time Maternal Grandmother Diabetes mellitus Not available 10/21 16:07:37 Maternal Grandmother Lymphosarcom a Not available 2024 14:51:15 Maternal Grandfather Diabetes mellitus [email or web address] Not available 10/21 16:07:37 Mother Diabetes mellitus [email or web address] Not available 10/21 16:07:37 Medical History Condition Response Allergies (Food, seasonal, environmental ) N Other N Breast Cancer N Drug/Latex Allergies/Reactions N Blood Transfusion N Dermatologic Disorders N Lung Disease N Defects or Inherited Disease N Breast Problem N Gestational Diabetes N Hematologic disorders N Anesthesia Complications N History of STI N Deep Vein Thrombosis N Polycystic ovary syndrome N Anxiety Disorder Y Autoimmune disease N Arthritis N Infertility N Polyps N Acid Reflux (GERD) N History of abnormal pap N Cancer N Stroke N Varicosities N Neurologic/Epilepsy N Endometriosis N High Cholesterol N Headaches Y Fibromyalgia N Kidney Disease N Heart Problems N Kidney or Bladder Problems N Thyroid Problems N GI Problems Y Eating Disorder N Anemia N Art (IVF or FET) N Psychiatric Illness N Ovarian Cancer N Diabetes N Pulmonary (TB, Asthma) N Hepatitis/Liver Disease N No Past Medical History N Eczema N Urinary Tract Infection N Abuse/Domestic Violence N Asthma N Trauma/Violence N Depression/ depression Y Heart Disease N Pre-Eclampsia N Hypertension N Osteoporosis N Thrombophilias N Gynecological History Statement/Question Response Abnormal Pap N Flow Moderate Date of Last Mammogram Date of LMP 06/23/2024 Was last menstrual period normal Y STIs/STDs N HPV Vaccine N Duration of Flow (days) 7 Current Control Method Are cycles usually normal Y Sexually Active? Y Menses Monthly N Date of DEXA bone scan Age of first menstrual cycle 14 Date of Last Pap Smear 06/02/2023 Sexual Problems? N LMP Approximate Obstetrics History GPAL:G 1 P 0 0 0 0 Type Value Living 0 Total 1 Past Encounters Encounter ID Performer Location Encounter Start Date Encounter Closed Date Diagnosis/Indication Diagnosis SNOMED-CT Code Diagnosis ICD10 Code Diagnosis Note [id number] CELSA Ferreira [facility] [address] [address] 02/27/2022 11:52:20 02/27/2022 13:09:02 Contraception care management 051891884 Z30.9 Venereal d isease screening 963699807 Z11.3 Gynecologi c examination 12971681 Z01.419 Take Calcium with Vitamin D 1200mg daily if not receiving in daily diet. It is strongly advised to have an annual flu shot and up can obtain at most pharmacies . If you have not had a TDap shot in the last 10 years you should obtain one as well. Discussed with patient & provided with informatio n regarding Gardisil vaccine to prevent the 4 strains for HPV that cause cervical cancer. Encourage safe sexual practices, to use condoms and limit partners if not already in a monogamous relationsh ip. Do monthly self breast exams. BRCA testing is now available for patients with strong genetic history of female cancer. If interested contact the office. Engage in daily exercise of low impact aerobic exercise 45-60 minutes 4-5 times weekly. Avoid tobacco, illicit drugs, and alcohol. This lifestyle behavior pattern will lead to less health conditions and longer life span. If BMI greater than 25 weight watchers or dietary consult advised. Pap smear is not recommende d prior to the age of 21. If you have any concerns, pelvic, or vaginal problems we can discuss testing. Patient received above instructio ns, and questions have been answered. If you have any questions please call or respond to this email. Patient was made aware of the patient portal and may obtain a paper copy of today's plan if desired.Eliu barrientos had the nexplanon taken out 3 weeks ago for AUB. Is currently on an OCP but would like to discuss other options. Is interested in IUD. We discussed all forms of control, Kyleena vs Mirena IUD discussed. She is unsure and would like to think about it, handout given to patient. She will call us if she decides to move forward with the IUD.She has had some IMB with starting the new OCP. We discussed normal to have some BTB when starting new control. If she stays on the pill would like to see her in 3 months for a med check.Bandar es hx of DVT/PE, HTN, Liver disease, cancer, or migraine with aura. She is a non-smoker .Risk of OCPs (VTE, Cardiovasc ular events, etc) discussed and accepted by patient.Eliu barrientos has vaginal discharge on and off, no odor/itchi ng/dischar ge is white. We discussed normal vaginal discharge. She uses vaginal washes, vulvar care guidelines discussed. Only water and fingers to cleanse the vulva.Urin e STI testing sent, blood STI testing ordered.No family hx of breast or ovarian cancerRTC for either IUD insertion or med check Sexually t ransmitted infectious disease 8602213 A64 [id number] [facility] [address] [address] 12/15/2022 16:18:02 12/15/2022 17:10:47 Pain in pelvis 02697650 R10.2 [id number] Abby Cruz MD [facility] [address],[place] [address] 12/22/2022 15:21:07 12/23/2022 12:38:05 Dysmenorrhea [id number] N94.6 [id number] [facility] [address],[place] [address] 08/26/2024 12:12:22 08/29/2024 10:14:13 [id number] SADIE RABAGO MD [facility] [address],[place] [address] 08/26/2024 13:47:06 08/26/2024 14:41:23 test positive 009150965 Z32.01 1. Exam today within normal limits.2. Ultrasound today confirms GA and viability. EDC . GC/Clamydi a testing done: will f/u as indicated. 4. ACOG guidelines and plan of care for reviewed with patient. All questions answered.5 . Return to office at 12 weeks for new OB visit6. Will need new OB labs at next visit.7. Genetic screening: desires at 10 weeks, orders given today. Migraine 83019723 G43.90 9 - previously on topiramate - daily mild headaches, somewhat relieved with tylenol- discussed caffeine and B2, will send referral to M if still unrelieved screening 2437 17473 Z36.89 [id number] [facility] [address],[place] [address] 09/23/2024 11:58:30 09/23/2024 12:37:15 screening [id number] Z36.82 Z3A.13 [id number] SADIE RABAGO MD [facility] [address],[place] [address] 09/23/2024 11:58:50 09/23/2024 14:15:19 Routine care 189715087 Z34.91 [id number] SADIE RABAGO MD [facility] [address],[place] [address] 10/21/2024 15:53:27 10/21/2024 16:32:34 Gestation period, 17 weeks 02785234 Z3A.17 - continue PNV 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 - mood stable on fluoxetine 20mg [id number] Yolande Hanna [facility] [address] [address] 11/14/2024 14:50:43 11/14/2024 16:35:10 screening for malformation 391341226 Z36.3 Z3A.20 [id number] SADIE RABAGO MD [facility] [address] [address] 11/14/2024 14:51:11 11/16/2024 03:00:30 Exposure to sexually transmissible disorder 801375689 Z20.2 - partner recently diagnosed with gHSV- lesion found last week, swab sent off lesion today- will treat then start suppressio n if positive Gestation period, 20 weeks 98511100 Z3A.20 - continue PNV- anatomy incomplete , will repeat in 4 weeks Health Concerns Section Related Observation LastModified by Organization Detai ls LastModified Time None Recorded Concern Status LastModified by Organization Details LastModified Time None Recorded Advance Directives Directive N: Payers Encounter Date Sequence Insurance Name Policy Number Policy Ornelas Covered Member ID Ornelas Member ID Guarantor Name 09/23/2024 1 [facility] ON OR AFTER 05/02/21 (MEDICAID REPLACEMENT - HMO) Sana Ortega [id number] Sana Ortega 09/23/2024 1 [facility] - [facility] ON OR AFTER 21 (MEDICAID REPLACEMENT - HMO) Sana Ortega [id number] Sana Ortega 10/21/2024 1 [facility] - DOS ON OR AFTER 21 (MEDICAID REPLACEMENT - HMO) Sana Ortega [id number] Sana Ortega 11/14/2024 1 [facility] - DOS ON OR AFTER 21 (MEDICAID REPLACEMENT - HMO) Sana Ortega [id number] Sana Ortega 11/14/2024 1 [facility] - DOS ON OR AFTER 21 (MEDICAID REPLACEMENT - HMO) Sana Ortega [id number] Sana Ortega OBGyn Episode Ob Episode Information Episode Created Date Number of Fetuses Patient Bloodtype Patient rh Status Prepregnancy Weight lbs Domestic Partner Domestic Partner Phone Father Name [employer] Status 09/23/20 24 1 O Positive Tarun Estrada nd OPEN Fetus Data First Name Last Name Admitted to NICU Weight (g) Sex Living Outcome Pediatric Complications Fetus ID Race Codes Race Delivery Type [id number] Problems Problem Notes Problem Name Start Date End Date Resolution Snomed Code Not e 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 Valtex @ 36wks Leland Calculation Initial Leland Date Initial Exam Date Initial Exam Provider Initial Ultrasound Date Last Menstrual Period Date Ultra Sound Weeks Gestation 03/30/2025 09/23/2024 08/26/2024 06/23/2024 9 Eighteen To Twenty Week Leland Update Ultra Sound Date Fundal Height At Umbil Quickening Date Ultra Sound Latest Weeks Gestation Final Leland Confirmed By Final Leland Confirmed Date Final Leland Date Ultra Sound Latest Days Gestation 0 0 Pre-brennan Flowsheet Flowsheet Date 09/23/2024 Curry Score Blood Edema Fundus Height Fundus Units Glucose Ketones Leukocytes Nitrite Labor Signs Protein Cervic Dilation Cervic Effacement Cervic Station Type Weight in lbs Pre/Post Dialysis Refused Weight 171.869645656237 BP Diastolic BP Location Tested BP Systolic BP Type 82 L arm 117 sitting Fetus Heart Rate Present A 154 Fetus Movement A No Comments Patient presents to [facility] care. Nausea and fatigue improved. complicated by migraines, previously on topiramate. Currently somewhat controlled. NT/NB wnl, LR male NIPT. Other OB labs wnl. RTC 4 weeks for routine care. Flowsheet Date 10/21/2024 Curry Score Blood Edema Fundus Height Fundus Units Glucose Ketones Leukocytes Nitrite Labor Signs Protein Cervic Dilation Cervic Effacement Cervic Station trace Type Weight in lbs Pre/Post Dialysis Refused 171.449928329930 BP Diastolic BP Location Tested BP Systolic BP Type 83 120 Fetus Heart Rate Present A 155 Fetus Movement A Yes Comments Patient states that is havin g back pain, discharge, fatigue, nausea and swelling. Vomiting resolved. Was in the ER for dehydration and nausea 2 weeks ago, has been feeling better. Discussed anatomy US for next visit. RTC 4 weeks. Flowsheet Date 11/14/2024 Curry Score Blood Edema Fundus Height Fundus Units Glucose Ketones Leukocytes Nitrite Labor Signs Protein Cervic Dilation Cervic Effacement Cervic Station Type Weight in lbs Pre/Post Dialysis Refused BP Diastolic BP Location Tested BP Systolic BP Type Fetus Heart Rate Present Fetus Movement Comments Flowsheet Date 11/14/2024 Curry Score Blood Edema Fundus Height Fundus Units Glucose Ketones Leukocytes Nitrite Labor Signs Protein Cervic Dilation Cervic Effacement Cervic Station trace Type Weight in lbs Pre/Post Dialysis Refused 171.760969809188 BP Diastolic BP Location Tested BP Systolic BP Type 82 123 Fetus Heart Rate Present A Present Fetus Movement A Yes Comments Patient is having brown disc harge, swelling, and nausea. New possible HSV lesion, FOB diagnosed with HSV recently. Swab sent today. Discussed ppx if swab positive. Anatomy incomplete, need profile, N/L, and feet views. Will repeat in 4 weeks. EFW 37%. Possible bilobed placenta. RTC 4 weeks. Menstrual History Last Menstrual Date Menses Monthly On Bcp Conception Prior Menses Frequency Hcg Plus Date Menarche Onset Age 0806/23/2024 true Delivery Information Delivery Date Delivery Type Labor Anesthesia Weeks Gestation Incision Type Labor Labor Length Hrs Delivered By Post Complications Tubal Sterilization Discharge Date Comments Discharge Information Feeding Method Contraceptive Method Maternal HG B and HCT Levels
--- OUTSIDE RECORDS SUMMARY | 2024-11-25 00:25 | XMS_ITS ---
Author Organization Unknown Address [address] [place] [phone] Phone Care Team Providers Care It Sales Executive Name Role Phone ALLYSSA GREENBERG Attending Unavailable [...] mcg/0.25mL dose 01/09/2022 Completed 207 CVX Results BASIC METABOLIC PANEL - Iman ect Date/Time: 04/15/2024 11:01 [facility] ID: [id number] [address] [place], [place], [id number] LOINC: 69556-7 Test Value Unit Reference Range Code Code System Flag FASTING NO BUN 7 mg/dL L=7 H=20 3094-0 LOINC CREATININE 0.80 mg/dL L=0.52 H=1.04 2160-0 LOINC GLUCOSE 90 mg/dL L=74 H=106 2345-7 LOINC CALCIUM 9.5 mg/dL L=8.3 H=10.5 66517-6 LOINC SODIUM 139 mmol/L L=132 H=144 2951-2 LOINC POTASSIUM 3.8 mmol/L L=3.5 H=5.1 2823-3 LOINC CHLORIDE 110 mmol/L L=98 H=107 2075-0 LOINC H CO2 21.0 mmol/L L=22.0 H=30.0 2028-9 LOINC L ANION GAP 12 L=10 H=20 10829-9 LOINC BUN/CREAT 8.8 3097-3 LOINC AGE 23 59353-0 LOINC eGFR NON-AFR 96 ml/min eGFR AFR AMER 116 ml/min Social History Type Status Start Date End Date Code Code Syst em Smoking History Never smoker (Never Smoked) 828854110 SNOMED CT Sex Female Assessment You had [...] System OTHER GENERAL SYMPTOMS AND SIGNS active 712090787 SNOMED-CT ABDOMINAL PAIN active 96425333 SNOME D-CT ENCOUNTER FOR SCREENING FOR INFECTIONS WITH A PREDOMINANTLY SEXUAL MODE OF TRANS active 321583869 SNOMED- CT ENCOUNTER FOR SCREENING FOR RESPIRATORY TUBERCULOSIS active 498791348 SNO MED-CT LEFT LOWER QUADRANT PAIN active 33656 6002 SNOMED-CT ENCOUNTER FOR GYNECOLOGICAL EXAMINATION (GENERAL) (ROUTINE) WITHOUT ABNORMAL FIN active 44812845 SNOMED- CT Plan of Treatment No Data Found Encounters Encounter Diagnosis Start Date Code Code Sys tem Abnormal results of kidney function studies 04/15/2024 SNOMED-CT Personal Care Team Section Performer Name Performer Role Active Date Inactive YULIANA Garcia PCP - Primary care physician 2022-09-10
== END 2024-11-23 13:35 | disposition home or self-care (01) ==
LOC: ANHOBOP 13:52 → ANHLDR 13:59
PROVIDERS: Visit Provider Obstetrics & Gynecology
DX: O46.90 Antepartum hemorrhage, unspecified, unspecified trimester (principal); Z3A.00 Weeks of gestation of pregnancy not specified
CPT/HCPCS: 81001; 84112

== ENCOUNTER 2025-01-06 18:35 | Observation (INO) | payer OTHER, SELFPAY ==
--- OUTSIDE RECORDS SUMMARY | 2025-01-06 18:44 | XMS_ITS ---
Author Organization Unknown Address [address] [place] [address] [phone] Phone Care Team Providers Care Special Systems Technician Name Role Phone BRAVO MARKEL Attending Unavailable [...] SERUM - Colle ct Date/Time: 01/13/2024 09:11 [facility] ID: [id number] [address] [place], [place], [id number] LOINC: Test Value Unit Reference Range Code Code System Flag SERUM PREG NEGATIVE Social History Type Status Start Date End Date Code Code Syst em Smoking History Never smoker (Never Smoked) 073364832 SNOMED CT Sex Female Assessment You had [...] System OTHER GENERAL SYMPTOMS AND SIGNS active 243877105 SNOMED-CT ABDOMINAL PAIN active 77566166 SNOME D-CT ENCOUNTER FOR SCREENING FOR INFECTIONS WITH A PREDOMINANTLY SEXUAL MODE OF TRANS active 086631567 SNOMED- CT ENCOUNTER FOR SCREENING FOR RESPIRATORY TUBERCULOSIS active 033377217 SNO MED-CT LEFT LOWER QUADRANT PAIN active 32840 6002 SNOMED-CT ENCOUNTER FOR GYNECOLOGICAL EXAMINATION (GENERAL) (ROUTINE) WITHOUT ABNORMAL FIN active 29409128 SNOMED- CT Plan of Treatment No Data Found Encounters Encounter Diagnosis Start Date Code Code Sys tem Excessive and frequent menstruation with regular cycle 01/13/2024 SNOMED-CT Personal Care Team Section Performer Name Performer Role Active Date Inactive YULIANA Garcia PCP - Primary care physician 2022-09-10
--- OUTSIDE RECORDS SUMMARY | 2025-01-06 18:44 | XMS_ITS | Data Portability ---
Author Organization [facility] [place] Address [address] [place] [address] Care Team Providers Care Cook Helper Juice Name Role Phone ABHILASH PRINCE Primary Care Provider YARI SPIVEY Primary Care Provider Assessment No assessment recorded. Plan of Treatment Reminders Order Date Submit Date Provider Last Modified By Organization Details Last Modified Time Details Appointments U/S OB GROWTH 2024 10:00A M ULTRASOUND Not available Not available Not available OB ROUTINE 2024 10:30A M SADIE RABAGO MD Not available Not available Not available Lab drug screen, urine 2023 024 [email or web address] [place], [address], [place], [address], 10/21/2024 16:15:15 Referral None recorde d. Procedures None recorde d. Surgeries None recorde d. Imaging US, obstetr ic, follow- up 2024 [address], [address], [place], [address], 12/14/2024 21:43:51 US, obstetr ic, 2nd or 3rd trimest er 2024 025 [email or web address] [place], [address], [place], [address], 11/14/2024 18:54:09 Medication Orders None recorde d. Patient TargetsNo targets recorded. Patient InstructionsNo instructions recorded. Reason for Referral None Reported. Results Created Date Observation Date Name Description Value Unit Range Abnormal Flag Note LastModifiedBy Organization Detail LastModifiedTime 09/23/20 24 09/23/2024 CULTU RE: URINE result report SEE RESULT S BELOW Test: Cultu re: Urine Speci men Sourc e: Urine - Clean Catch Speci men Type: Urine Speci men Date: 09/23 1546 Resul t Date: 09/25 0359 Resul t Statu s: Final resul t Abnor mal: No Resul ting Lab: [facility] [address] [facility] [address] Tel: CULTU RE ----- ----- ----- --- Cultu re resul t (>=3 organ isms prese nt) indic ates possi ble conta minat ion. Repea t cultu re if sympt oms indic ate. Not Available [facility] (Lab) [address], [place], [address], 09/25/2024 05:03:05 10/21/20 24 10/21/2024 drug scree n, urine Amphetamines : negati ve Not Available [facility] [address], [place], [address], 10/21/2024 16:09:09 10/21/20 24 10/21/2024 drug scree n, urine Cannabinoids : negati ve Not Available [facility] [address], [place], [address], 10/21/2024 16:09:09 10/21/20 24 10/21/2024 drug scree n, urine Cocaine: negati ve Not Available [facility] [address], [place], [address], 10/21/2024 16:09:09 10/21/20 24 10/21/2024 drug scree n, urine Opiates: negati ve Not Available [facility] [address], [place], [address], 10/21/2024 16:09:09 10/21/20 24 10/21/2024 drug scree n, urine Phenocyclidi ne: negati ve Not Available [facility] [address], [place], [address], 10/21/2024 16:09:09 10/21/20 24 10/21/2024 drug scree n, urine Barbiturates : negati ve Not Available [facility] [address], [place], [address], 10/21/2024 16:09:09 10/21/20 24 10/21/2024 drug scree n, urine Benzodiazepi sacha: negati ve Not Available [facility] [address], [place], [address], 10/21/2024 16:09:09 10/21/20 24 10/21/2024 drug scree n, urine Ethanol: negati ve Not Available [facility] [address], [place], [address], 10/21/2024 16:09:09 10/21/20 24 10/21/2024 drug scree n, urine Hallucinogen s: negati ve Not Available [facility] [place] [address], [place], [address], 10/21/2024 16:09:09 10/21/20 24 10/21/2024 drug scree n, urine Inhalants: negati ve Not Available [facility] [address], [place], [address], 10/21/2024 16:09:09 10/21/20 24 10/21/2024 drug scree n, urine Anabolic Steroids: negati ve Not Available [facility] [address], [place], [address], 10/21/2024 16:09:09 10/21/20 24 10/21/2024 drug scree n, urine Other: negati ve Not Available [facility] [address], [place], [address], 10/21/2024 16:09:09 11/14/19 25 11/14/2024 CULTU RE: HERPE S SIMPL EX VIRUS (HSV) , REFLE X TYPIN G source VESICL E Not Available [facility] (Lab) [address], [place], [address], 11/21/2024 08:21:48 11/14/19 25 11/14/2024 CULTU RE: HERPE S SIMPL EX VIRUS (HSV) , REFLE X TYPIN G hsv culture, body fluid ISOLAT ED abnormal Not Available [facility] (Lab) [address], [place], [address], 11/21/2024 08:21:48 11/14/19 25 11/14/2024 CULTU RE: HERPE S SIMPL EX VIRUS (HSV) , REFLE X TYPIN G hsv 2 ISOLAT ED abnormal Not Available [facility] (Lab) [address], [place], [address], 11/21/2024 08:21:48 11/14/19 25 11/14/2024 CULTU RE: [...] * Perfo rming Organ izati on Infor matio n: Site ID: CB Name: Kaylee Covarrubias Addre ss: [address] [place] [address] Direc tor: Rupa lópez Not Available [facility] (Lab) [address], [place], [address], 11/21/2024 08:21:48 09/23/20 24 09/23/2024 US, obste tric, nucha l trans lucen cy No observ ation record ed. [facility] [address], [place], [address], 09/23/2024 17:03:01 09/23/20 24 09/23/2024 US, obste tric, nucha l trans lucen cy No observ ation record ed. [email or web address] [address], [place], [address], 09/23/2024 21:00:08 11/14/19 25 11/14/2024 US, obste tric, 2nd or 3rd trime ster No observ ation record ed. [facility] [address], [place], [address], 11/14/2024 18:05:08 11/14/19 25 11/14/2024 US, obste tric, 2nd or 3rd trime ster No observ ation record ed. [address], [place], [address], 11/15/2024 00:25:12 12/13/19 25 12/13/2024 US, obste tric, follo w-up No observ ation record ed. [email or web address] [facility] [address], [place], [address], 12/13/2024 17:36:41 12/13/19 25 12/13/2024 US, obste tric, follo w-up No observ ation record ed. [address], [place], [address], 12/15/2024 12:10:45 Result Notes None recorded. Problems Name Problem SNOMED Code Status Onset Date Resolution Date Notes Provider Name and Address Organization Details Recorded Time Mixed anxiety and depressive disorder 816742553 Active 2022 Abby Cruz MD [address], [place], [address], [facility] 3 15:27:32 Diverticuli tis 708604607 Active 2022 Abby Cruz MD [address], [place], [address], [facility] 3 15:27:39 45294468 Active 2023 Rosanna aviles, [facility] 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, [facility] 5 10:02:56 Herpes simplex 08217314 Active HSV 2 Valtex @ 36wks [facility] [facility], [facility] 5 10:02:56 Problem Notes None recorded. Procedures Surgical History Date Name Laterality Status Provider Name and Address Organization Details Recorded Time 06/02/2023 Date of Last Pap Smear completed Rosanna Hobson [facility] 09/23/2024 12:46:58 Imaging Results Imaging Date Name Status LastModified by Organization Details LastModified Time 09/23/2024 US, obstetric, nuchal translucency completed juan david [facility] [address], [place], [address], 09/23/2024 17:03:01 09/23/2024 US, obstetric, nuchal translucency completed [email or web address] [address], [place], [address], 09/23/2024 21:00:08 11/14/2024 US, obstetric, 2nd or 3rd trimester completed juan david [facility] [address], [place], [address], 11/14/2024 18:05:08 11/14/2024 US, obstetric, 2nd or 3rd trimester completed [email or web address] [address], [place], [address], 11/15/2024 00:25:12 12/13/2024 US, obstetric, follow-up completed [email or web address] [facility] [address], [place], [address], 12/13/2024 17:36:41 12/13/2024 US, obstetric, follow-up completed [email or web address] [address], [place], [address], 12/15/2024 12:10:45 Procedure Notes None recorded. Medical Equipment None [...] Available Not Available Not Available hydrocodone 5 mg-acetamin ophen 325 mg tablet 02/27 completed Not Available [...] completed Not Available Not Available Not Available metronidazo le 500 mg tablet 12/22 completed Not Available Not Available Not Available hydroxyzine HCl 50 mg tablet 12/22 completed Not Available Not Available Not Available acetaminoph en 300 mg-codeine 30 mg tablet 02/27 completed Not Available Not Available Not Available ciprofloxac in 500 mg tablet 12/22 completed Not Available Not Available Not Available omeprazole 40 mg capsule,del ayed release 02/27 completed Not Available Not Available Not Available triamcinolo ne acetonide 0.1 % topical cream 02/27 completed Not Available Not Available Not Available ondansetron 8 mg disintegrat ing tablet 02/27 completed Not Available Not Available Not Available amoxicillin 875 mg tablet 12/22 completed Not Available Not Available Not Available famotidine 20 mg tablet 02/27 completed Not Available Not Available Not Available dexamethaso ne 1 mg tablet 08/26 completed Not Available Not Available Not Available doxycycline monohydrate 100 mg capsule 02/27 completed Not Available Not Available Not Available venlafaxine 37.5 mg tablet 11/14 completed Not Available Not Available Not Available oseltamivir 75 mg capsule 02/27 completed Not Available Not Available Not Available nystatin 100,000 unit/gram topical cream 08/26 completed Not Available Not Available Not Available dexamethaso ne 4 mg tablet 12/22 completed Not Available Not Available Not Available Valtrex 1 gram tablet Take 1 tablet every 12 hours by oral route for 5 days, for Breakout. 2024 active Not Available Not Available Not Avai lable sertraline 25 mg tablet 11/14 completed Not Available Not Available Not Available Valtrex 500 mg tablet Take 1 tablet twice a day by oral route. 2024 active Not Available Not Available Not Avai lable ondansetron 4 mg disintegrat ing tablet 08/26 completed Not Available Not Available Not Available fluoxetine 20 mg capsule active Not Available Not Available Not Available fluticasone propionate 50 mcg/actuati on nasal spray,suspe nsion 08/26 completed Not Available Not Available Not Available dicyclomine 10 mg capsule 12/22 completed Not Available Not Available Not Available naproxen 500 mg tablet 02/27 completed Not Available Not Available Not Available amoxicillin 875 mg-loki rosa clavulanate 125 mg tablet 08/26 completed Not Available Not Available Not Available topiramate 50 mg tablet 08/26 completed Not Available Not Available Not Available nitrofurant oin monohydrate /macrocryst als 100 mg capsule Take 1 capsule every 12 hours by oral route as directed for 7 days. active Not Available Not Available No t Available 2023 active Not Available Not Available Not Avai lable doxylamine 10 mg-pyridoxi ne (vit B6) 10 mg tablet,michelle yed release TAKE 1 TABLET BY MOUTH ONCE DAILY IN THE EVENING INITIALLY TO SEE IF IT IS EFFECTIVE OR CAUSES DROWSINES S, IF TOLERATED , MAY TAKE A TWICE A DAY active Not Available Not Available No t Available Natroba 0.9 % topical suspension 02/27 completed [...] Available Not Available Vitals Date Recorded Body weight Body mass index (BMI) Body height Systolic blood pressure Diastolic blood pressure Provider Name and Address Organization Details Last Updated DateTime 10/21/2024 18370.29 527 g 31.3 kg/m2 157.48 cm 120 mm[Hg] 83 mm[Hg] Zeny Joiner [facility] 4 16:05:32 Date Recorded Body weight Body mass index (BMI) Body height Systolic blood pressure Diastolic blood pressure Provider Name and Address Organization Details Last Updated DateTime 11/14/2024 09354.29 527 g 31.3 kg/m2 157.48 cm 123 mm[Hg] 82 mm[Hg] Zeny Joiner [facility] 5 16:47:02 Date Recorded Body height Body mass index (BMI) Body weight Systolic blood pressure Diastolic blood pressure Provider Name and Address Organization Details Last Updated DateTime 12/13/2024 157.48 cm 33.1 kg/m2 63152.21 897 g 118 mm[Hg] 76 mm[Hg] Rosanna Hobson [facility] 15:15:14 Social History Question Answer Notes LastModified by Organizat ion Details LastModified Time Tobacco Smoking Status Never Smoker Manuela Townsend stefan, [facility] 12/15/2022 16:18:11 Do You Have An Advance Directive? No Information not available 02/26/2022 What Is Your Level Of Alcohol Consumption? None Information not available 02/26/2022 Are You Blind Or Do You Have Difficulty Seeing? No Information not available 02/26/2022 What Is Your Level Of Caffeine Consumption? Moderate [email or web address] Information not available 11/14/2024 In The 14 [...] available 02/26/2022 Are You Currently Employed? No [email or web address] Information not available 12/15/2022 Are You Deaf Or Do You Have Serious Difficulty Hearing? No Information not available 02/26/2022 What Type Of Diet Are You Following? SPECIFIC [email or web address] Information not available 11/14/2024 Do You Or Have You Ever Used E-cigarettes Or Vape? Current User Of Electronic Cigarettes [email or web address] Information not available 12/15/2022 What Is The Highest Grade Or Level Of School You Have Completed Or The Highest Degree You Have Received? 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 No Information not available 02/26/2022 Do You Use Protection During Sex? No Information not available 02/26/2022 Do You Use Your Seat Belt Or Car Seat Routinely? Yes Information not available 02/26/2022 Are You Sexually Active? Yes [email or web address] Information not available 12/15/2022 Do You Have Smoke And Carbon Monoxide Detectors In Your Home? Yes Information not available 02/26/2022 How Much Tobacco Do You Smoke? No [email or web address] Information not available 11/14/2024 Do You Feel Stressed (tense, Restless, Nervous, Or Anxious, Or Unable To Sleep At Night)? [id number] [email or web address] Information not available 11/14/2024 Do You Use Any Illicit Or Recreational Drugs? No [email or web address] Information not available 11/14/2024 Do You Use Sunscreen Routinely? Yes Information not available 02/26/2022 Have You Used IV Drugs? No [email or web address] Information not available 11/14/2024 Do You Or Have You Ever Used Any Other Forms Of Tobacco Or Nicotine? Yes [email or web address] Information not available 12/15/2022 Sex: Unknown Functional Status Question Answer Note LastModified by Organizat ion Details LastModified Time Do you have difficulty walking or climbing stairs? No [email or web address] Information not available 12/15/2022 Are you able to walk? [email or web address] Information not available 02/26/2022 Are you able to care for yourself? Yes Information not available 12/15/2022 Do you have difficulty dressing or bathing? No [email or web address] Information not available 12/15/2022 What is your exercise level? Occasional [email or web address] Information not available 11/14/2024 Mental Status None recorded. Family History Relationship Description Onset Age of this Age Resolved Age Notes LastModified by Organization Details LastModified Time Maternal Grandmother Diabetes mellitus [email or web address] Not available 10/21 16:07:37 Maternal Grandmother Lymphosarcom a [email or web address] Not available 2024 14:31:51 Maternal Grandfather Diabetes mellitus [email or web address] Not available 10/21 16:07:37 Mother Diabetes mellitus [email or web address] Not available 10/21 16:07:37 Medical History Condition Response Allergies (Food, seasonal, environmental ) N Other N Drug/Latex Allergies/Reactions N Breast Cancer N Blood Transfusion N Dermatologic Disorders N Lung Disease N Defects or Inherited Disease N Breast Problem N Gestational Diabetes N Hematologic disorders N Anesthesia Complications N History of STI N Deep Vein Thrombosis N Polycystic ovary syndrome N Anxiety Disorder Y Autoimmune disease N Arthritis N Polyps N Infertility N Acid Reflux (GERD) N History of abnormal pap N Cancer N Varicosities N Stroke N Neurologic/Epilepsy N Endometriosis N High Cholesterol N Fibromyalgia N Headaches Y Kidney Disease N Heart Problems N Thyroid Problems N Kidney or Bladder Problems N GI Problems Y Eating Disorder [...] SNOMED-CT Code Diagnosis ICD10 Code Diagnosis Note [id number] CELSA Ferreira [facility] [address] [address] 02/27/2022 11:52:20 02/27/2022 13:09:02 Contraception care management 584373484 Z30.9 Venereal d isease screening 127349459 Z11.3 Gynecologi c examination 52931825 Z01.419 Take Calcium with Vitamin D 1200mg [...] med check Sexually t ransmitted infectious disease 4218003 A64 [id number] Yolande [facility] [address] [address] 12/15/2022 16:18:02 12/15/2022 17:10:47 Pain in pelvis 16767060 R10.2 [id number] Abby Cruz MD [facility] [address],[place] [address] 12/22/2022 15:21:07 12/23/2022 12:38:05 Dysmenorrhea 469092551 N94.6 [id number] [facility] [address],[place] [address] 08/26/2024 12:12:22 08/29/2024 10:14:13 [id number] SADIE RABAGO MD [facility] [address] [address] 08/26/2024 13:47:06 08/26/2024 14:41:23 test positive 826936275 Z32.01 1. Exam today within normal limits.2. [...] at 10 weeks, orders given today. Migraine 40815235 G43.90 9 - previously on topiramate - daily mild headaches, somewhat relieved with tylenol- discussed caffeine and B2, will send referral to MFM if still unrelieved screening 2437 [address]1330 Z36.89 [id number] [facility] [address],[place] [address] 09/23/2024 11:58:30 09/23/2024 12:37:15 screening 718526976 Z36.82 Z3A.13 [id number] SADIE RABAGO MD [facility] [address],[place] [address] 09/23/2024 11:58:50 09/23/2024 14:15:19 Routine care 640634609 Z34.91 [id number] SADIE RABAGO MD [facility] [address],[place] [address] 10/21/2024 15:53:27 10/21/2024 16:32:34 Gestation period, 17 weeks 01317002 Z3A.17 - continue PNV Mixed anxi ety and depressive disorder 987227284 F41.8 - mood stable on fluoxetine 20mg [id number] Yolande Hanna [facility] [address],[place] [address] 11/14/2024 14:50:43 11/14/2024 16:35:10 screening for malformation 161421729 Z36.3 Z3A.20 [id number] SADIE RABAGO MD [facility] [address],[place] [address] 11/14/2024 14:51:11 11/16/2024 03:00:30 Exposure to sexually transmissible disorder 140568868 Z20.2 - partner recently diagnosed with gHSV- lesion found last week, swab sent off lesion today- will treat then start suppressio n if positive Gestation period, 20 weeks 69910894 Z3A.20 - continue PNV- anatomy incomplete , will repeat in 4 weeks [id number] [facility] [address],[place] [address] 12/13/2024 14:31:26 12/13/2024 16:06:38 screening 591136533 Z36.2 Z3A.24 [id number] SADIE RABAGO MD [facility] [address],[place] [address] 12/13/2024 14:31:43 12/13/2024 16:01:28 Genital herpes simplex 64770027 A60.9 - confirmed at 20 weeks- plan for 36 week suppressiv e therapy Disorder of placenta 125 969722 O43.90 - bilobed placenta- EFW 24% at 24 weeks- repeat growth US at 32 weeks Gestation period, 24 weeks 856749130 Z3A.24 - continue pNV Health Concerns Section Related Observation LastModified by Organization Detai ls LastModified Time None Recorded Concern Status LastModified by Organization Details LastModified Time None Recorded Advance Directives Directive N: Payers Encounter Date Sequence Insurance Name Policy Number Policy Ornelas Covered Member ID Ornelas Member ID Guarantor Name 10/21/2024 1 [facility] ON OR AFTER 05/02/21 (MEDICAID REPLACEMENT - HMO) Sana Ortega [id number] Sana Ortega 11/14/2024 1 [facility] ON OR AFTER 05/02/21 (MEDICAID REPLACEMENT - HMO) Sana Ortega [id number] Sana Ortega 11/14/2024 1 [facility] ON OR AFTER 05/02/21 (MEDICAID REPLACEMENT - HMO) Sana Ortega [id number] Sanaclaire Ortega 12/13/2024 1 [facility] ON OR AFTER 05/02/21 (MEDICAID REPLACEMENT - HMO) Sana Ortega [id number] Sana Ortega 12/13/2024 1 [facility] ON OR AFTER 05/02/21 (MEDICAID REPLACEMENT - HMO) Sana Ortega [id number] Sana Ortega OBGyn Episode Ob Episode Information Episode Created Date Number of Fetuses Patient Bloodtype Patient rh Status Prepregnancy Weight lbs Domestic Partner Domestic Partner Phone Father Name Vice President Diversity Status 09/23/20 24 1 O Positive Tarun Estrada nd OPEN Fetus Data First Name Last Name Admitted to NICU Weight (g) Sex Living Outcome Pediatric Complications Fetus ID Race Codes Race Delivery Type [id number] Problems Problem Notes Problem Name Start Date End Date Resolution Snomed Code Not e Herpes simplex 04199783 HSV 2 Valtex @ 36wks [place] Calculation [...] Weight in lbs Pre/Post Dialysis Refused Weight 171.777484159389 BP Diastolic BP Location Tested BP Systolic BP Type 82 L arm 117 sitting Fetus Heart Rate Present A 154 Fetus Movement A No Comments Patient presents to [facility]. Nausea and fatigue improved. complicated by migraines, previously on topiramate. Currently somewhat controlled. NT/NB wnl, LR male NIPT. Other OB labs wnl. RTC 4 weeks for routine care. Flowsheet Date 10/21/2024 Curry Score Blood Edema Fundus Height Fundus Units Glucose Ketones Leukocytes Nitrite Labor Signs Protein Cervic Dilation Cervic Effacement Cervic Station trace Type Weight in lbs Pre/Post Dialysis Refused 171.469683835561 BP Diastolic BP Location Tested BP Systolic [...] Type Weight in lbs Pre/Post Dialysis Refused 171.354714465126 BP Diastolic BP Location Tested BP Systolic [...] 37%. Possible bilobed placenta. RTC 4 weeks. Flowsheet Date 12/13/2024 Curry Score Blood Edema Fundus Height Fundus Units Glucose Ketones Leukocytes Nitrite Labor Signs Protein Cervic Dilation Cervic Effacement Cervic Station Type Weight in lbs Pre/Post Dialysis Refused BP Diastolic BP Location Tested BP Systolic BP Type Fetus Heart Rate Present Fetus Movement Comments Flowsheet Date 12/13/2024 Ucrry Score Blood Edema Fundus Height Fundus Units Glucose Ketones Leukocytes Nitrite Labor Signs Protein Cervic Dilation Cervic Effacement Cervic Station Type Weight in lbs Pre/Post Dialysis Refused 181.716253070777 BP Diastolic BP Location Tested BP Systolic BP Type 76 L arm 118 sitting Fetus Heart Rate Present A 135 Fetus Movement A Yes Comments Good movement. No cram ping or bleeding. Nausea improved with zofran. HSV positive from swab last visit, lesion now resolved. Discussed suppression at 36 weeks. Repet US today to clear anatomy, EFW 24%. Plan to repeat at 32 weeks for bilobed placenta. DIscussed gct and labs for next visit. RTC 4 weeks. Menstrual History Last Menstrual [...]
--- OUTSIDE RECORDS SUMMARY | 2025-01-06 18:44 | XMS_ITS ---
Author Organization Unknown Address [address] [place] [address] [phone] Phone Care Team Providers Care Lathe Spotter Name Role Phone ALLYSSA GREENBERG Attending Unavailable [...] PANEL - Iman ect Date/Time: 04/15/2024 11:01 [facility] ID: [id number] [address] [place], [place], [id number] LOINC: 57556-0 Test Value Unit Reference Range Code Code System Flag FASTING NO BUN 7 mg/dL L=7 H=20 3094-0 LOINC CREATININE 0.80 mg/dL L=0.52 H=1.04 2160-0 LOINC GLUCOSE 90 mg/dL L=74 H=106 2345-7 LOINC CALCIUM 9.5 mg/dL L=8.3 H=10.5 96208-9 LOINC SODIUM 139 mmol/L L=132 H=144 2951-2 LOINC POTASSIUM 3.8 mmol/L L=3.5 H=5.1 2823-3 LOINC CHLORIDE 110 mmol/L L=98 H=107 2075-0 LOINC H CO2 21.0 mmol/L L=22.0 H=30.0 2028-9 LOINC L ANION GAP 12 L=10 H=20 31007-2 LOINC BUN/CREAT 8.8 3097-3 LOINC AGE 23 12619-9 LOINC eGFR NON-AFR 96 ml/min eGFR AFR AMER 116 ml/min Social History Type Status Start Date End Date Code Code Syst em Smoking History Never smoker (Never Smoked) 937826291 SNOMED CT Sex Female Assessment You had [...] System OTHER GENERAL SYMPTOMS AND SIGNS active 014166847 SNOMED-CT ABDOMINAL PAIN active 24587171 SNOME D-CT ENCOUNTER FOR SCREENING FOR INFECTIONS WITH A PREDOMINANTLY SEXUAL MODE OF TRANS active 080169109 SNOMED- CT ENCOUNTER FOR SCREENING FOR RESPIRATORY TUBERCULOSIS active 868675244 SNO MED-CT LEFT LOWER QUADRANT PAIN active 12147 6002 SNOMED-CT ENCOUNTER FOR GYNECOLOGICAL EXAMINATION (GENERAL) (ROUTINE) WITHOUT ABNORMAL FIN active 60575152 SNOMED- CT Plan of Treatment No Data Found Encounters Encounter Diagnosis Start Date Code Code Sys tem Abnormal results of kidney function studies 04/15/2024 SNOMED-CT Personal Care Team Section Performer Name Performer Role Active Date Inactive YULIANA Garcia PCP - Primary care physician 2022-09-10
--- OUTSIDE RECORDS SUMMARY | 2025-01-06 18:45 | XMS_ITS ---
Author Organization Unknown Address [address] [place] [address] [phone] Phone Care Team Providers Care Make Up Operator Name Role Phone JOSE MARTINEZ Attending Unavailable LYN THORNE Primary Unavailable Immunization [...] mcg/0.25mL dose 01/09/2022 Completed 207 CVX Results 4 PLEX RESPIRATORY COVID FLU RSV PCR - Collect Date/Time: 11/24/2024 12:17 [facility] ID: [id number] [address] [place], [place], [id number] LOINC: 50399-0 Test Value Unit Reference Range Code Code System Flag SARS CoV2 PCR NEGATIVE FLU A PCR NEGATIVE FLU B PCR NEGATIVE RSV PCR NEGATIVE SEND TO [facility]? NO Social History Type Status Start Date End Date Code Code Syst em Smoking History Never smoker (Never Smoked) 657763424 SNOMED CT Sex Female Assessment You had [...] System OTHER GENERAL SYMPTOMS AND SIGNS active 581189008 SNOMED-CT ABDOMINAL PAIN active 17388571 SNOME D-CT ENCOUNTER FOR SCREENING FOR INFECTIONS WITH A PREDOMINANTLY SEXUAL MODE OF TRANS active 832548207 SNOMED- CT ENCOUNTER FOR SCREENING FOR RESPIRATORY TUBERCULOSIS active 726340520 SNO MED-CT LEFT LOWER QUADRANT PAIN active 02173 6002 SNOMED-CT ENCOUNTER FOR GYNECOLOGICAL EXAMINATION (GENERAL) (ROUTINE) WITHOUT ABNORMAL FIN active 94665879 SNOMED- CT Plan of Treatment No Data Found Encounters Encounter Diagnosis Start Date Code Code Sys tem Acute upper respiratory infection, unspecified 025 SNOMED-CT Personal Care Team Section Performer Name Performer Role Active Date Inactive Da YULIANA Alas PCP - Primary care physician 2022-09-10
--- OUTSIDE RECORDS SUMMARY | 2025-01-06 18:45 | XMS_ITS ---
Author Organization Unknown Address [address] [place] [address] [phone] Phone Care Team Providers Care Roof Tiler Name Role Phone SCOOBY MONTOYA Attending Unavailable [...] HCG-QUANT - Collect Bertram e/Time: 07/28/2024 08:44 [facility] ID: [id number] [address] [place], [place], [id number] LOINC: 51186-7 Test Value Unit Reference Range Code Code System Flag BETA HCG-QUANT 8219.20 mIU/mL L=0.00 H=6.00 50148-5 LOINC H Social History Type Status Start Date End Date Code Code Syst em Smoking History Never smoker (Never Smoked) 775994105 SNOMED CT Sex Female Assessment You had [...] System OTHER GENERAL SYMPTOMS AND SIGNS active 155136379 SNOMED-CT ABDOMINAL PAIN active 14129397 SNOME D-CT ENCOUNTER FOR SCREENING FOR INFECTIONS WITH A PREDOMINANTLY SEXUAL MODE OF TRANS active 138555943 SNOMED- CT ENCOUNTER FOR SCREENING FOR RESPIRATORY TUBERCULOSIS active 208508142 SNO MED-CT LEFT LOWER QUADRANT PAIN active 34254 6002 SNOMED-CT ENCOUNTER FOR GYNECOLOGICAL EXAMINATION (GENERAL) (ROUTINE) WITHOUT ABNORMAL FIN active 00114541 SNOMED- CT Plan of Treatment No Data Found Encounters Encounter Diagnosis Start Date Code Code Sys tem Encounter for test, result positive 07/28/20 SNOMED-CT Personal Care Team Section Performer Name Performer Role Active Date Inactive YULIANA Garcia PCP - Primary care physician 2022-09-10
--- OUTSIDE RECORDS SUMMARY | 2025-01-06 18:45 | XMS_ITS ---
Author Organization Unknown Address [address] [place] [address] [phone] Phone Care Team Providers Care Scrap Bunch Maker Name Role Phone ALLYSSA GREENBERG Attending Unavailable [...] HCG-QUANT - Collect Bertram e/Time: 04/29/2024 14:20 [facility] ID: [id number] [id number] [place], [place], [id number] LOINC: 47860-0 Test Value Unit Reference Range Code Code System Flag BETA HCG-QUANT < 2.39 mIU/mL L=0.00 H=6.00 36916-4 LOINC Social History Type Status Start Date End Date Code Code Syst em Smoking History Never smoker (Never Smoked) 118585437 SNOMED CT Sex Female Assessment You had [...] System OTHER GENERAL SYMPTOMS AND SIGNS active 109427812 SNOMED-CT ABDOMINAL PAIN active 78712427 SNOME D-CT ENCOUNTER FOR SCREENING FOR INFECTIONS WITH A PREDOMINANTLY SEXUAL MODE OF TRANS active 186530344 SNOMED- CT ENCOUNTER FOR SCREENING FOR RESPIRATORY TUBERCULOSIS active 975036937 SNO MED-CT LEFT LOWER QUADRANT PAIN active 25736 6002 SNOMED-CT ENCOUNTER FOR GYNECOLOGICAL EXAMINATION (GENERAL) (ROUTINE) WITHOUT ABNORMAL FIN active 97538648 SNOMED- CT Plan of Treatment No Data Found Encounters Encounter Diagnosis Start Date Code Code Sys tem test positive 04/29/2024 [id number] [facility] ED-CT Personal Care Team Section Performer Name Performer Role Active Date Inactive YULIANA Garcia PCP - Primary care physician 2022-09-10
--- OUTSIDE RECORDS SUMMARY | 2025-01-06 18:45 | XMS_ITS | Clinical Summary ---
Author Organization [facility] Address [address] [place] [id number] Care Team Providers Care Swing Type Lathe Operator Name Role Phone Sukumar Guerrero TANNING WHEEL FILLER Student Primary Care Provider Unavailable Allergies No known active allergies Medications No known medications Social History Tobacco Use Types Packs/Day Years Used Date Smoking Tobacco: Never Smokeless Tobacco: Never Tobacco Cessation:Counseling Given: Not Answered Alcohol Use Standard Drinks/Week Comments Not Currently 0 (1 standard drink = 0.6 oz pur e alcohol) Estimated Date of Delivery Comme nts Yes 03/30/2025 Sex and Gender Information Value Date Recorded Sex Assigned at Not on file Legal Sex Female 1:15 PM CAFETERIA OPERATOR Gender Identity Not on file Sexual Orientation Not on file Last Filed Vital Signs Vital Sign Reading Time Taken Comments Blood Pressure 116/64 10/06/2024 5:00 PM CAFETERIA OPERATOR Pulse 88 10/06/2024 2:24 PM CAFETERIA OPERATOR Temperature 36.5 C (97.7 F) 10/06/2024 2:24 PM CAFETERIA OPERATOR Respiratory Rate 18 10/06/2024 2:24 PM CAFETERIA OPERATOR Oxygen Saturation 100% 10/06/2024 5:00 PM CAFETERIA OPERATOR Inhaled Oxygen Concentration - - Weight 77.3 kg (170 lb 6 oz) 10/06/2024 2:24 PM CAFETERIA OPERATOR Height 160 cm (5' 3 ) 10/06/2024 2:24 PM CAFETERIA OPERATOR Body Mass Index 30.18 10/06/2024 2:24 PM CAFETERIA OPERATOR Plan of Treatment Health Maintenance Due Date Last Done Comments Annual Physical 2005 Meningococcal B Vaccine (2 of 2 - Bexsero SCDM 2-dose series) 10/25/2020 04/25/2020 COVID-19 Vaccine ( season) 2024 01/09/2022, 01/25/2021 Influenza Adult (#1) 2024 07/28/2017, 11/08/2003, 07/26/2003 Cervical Cancer Screening Pap Smear (Age 21 to 29) Every 3 Years 08/26/2027 08/26/2024 Cervical Cancer Screening 08/26/2027 DTaP, Tdap and Td Vaccines (8 - Td or Tdap) 02/08/2034 02/09/2024, 06/06/2014, 06/16/2007, Additional history exists Hepatitis B Vaccines Completed 06/12/2003, 03/16/2003, 2002 Pneumococcal Vaccine: Pediatrics (0 to 5 Years) and At-Risk Patients (6 to 64 Years) Aged Out 11/08/2003, 06/12/2003, 04/24/2003, Additional history exists No longer eligible based on patient's age to complete this topic HPV Vaccines Completed 07/28/2017, 06/06/2014 Meningococcal Vaccine Completed 04/25/2020, 014 Hepatitis C Completed 09/01/2024, 09/01/2024 RSV Immunization or 60+ Years (No Doses Required) Completed RSV Immunizations Under 20 Months Aged Out No longer eligible based on patient's age to complete this topic Insurance Care Teams Swing Type Lathe Operator Relationship Specialty Start Date End Date Sukumar Guerrero NP Student PCP - General 10/06/24
--- OUTSIDE RECORDS SUMMARY | 2025-01-06 18:45 | XMS_ITS ---
Author Organization Unknown Address [address] [place] [phone] Phone Care Team Providers Care Test Engineering Manager Name Role Phone ALLYSSA GREENBERG Attending Unavailable [...] DIFF - Collect Date/T car: 03/04/2024 11:10 [facility] ID: [id number] [address] [place], [place], [id number] LOINC: 30453-5 Test Value Unit Reference Range Code Code System Flag WBC 10.2 10^3uL L=4.8 H=10.8 RBC 4.45 10^6uL L=4.20 H=5.40 HEMOGLOBIN 13.2 g/dL L=12.0 H=16.0 718-7 LOINC HEMATOCRIT 39.1 VOL% L=37.0 H=47.0 4544-3 LOINC MCV 87.9 fL L=81.0 H=99.0 MCH 29.7 pg L=27.0 H=32.0 MCHC 33.8 g/dL L=32.0 H=36.0 PLATELETS 313 10^3uL L=100 H=400 05180-8 LOINC RDW 11.8 % L=11.7 H=15.5 %GRAN 62.7 % L=40.0 H=70.0 96698-5 LOINC %LYMPH 31.1 % L=20.0 H=45.0 736-9 LOINC %MONO 4.9 % L=2.0 H=10.0 79600-1 LOINC %EOS 0.7 % L=0.0 H=6.0 713-8 LOINC %BASO 0.3 % L=0.0 H=3.0 706-2 LOINC #NEUT 6.4 10^3uL L=1.9 H=7.6 34893-9 LOINC #LYMPH 3.2 10^3uL L=0.9 H=4.9 61223-0 LOINC #MONO 0.5 10^3uL L=0.1 H=0.9 45926-8 LOINC #EOS 0.1 10^3uL L=0.0 H=0.6 712-0 LOINC #BASO 0.03 10^3uL L=0.00 H=0.10 19119-3 LOINC #IM GRANS 0.0 10^3uL L=0.0 H=7.0 41203-8 LOINC %IM GRANS 0.3 % L=0.0 H=5.0 85277-7 LOINC %NRB 0.0 L=0.0 H=0.2 94920-1 LOINC #NRB 0.000 L=0.000 H=0.012 44362-1 LOINC MANUAL DIFF NOT INDICATED RBC MORPH NOT INDICATED COMPREHENSIVE METABOLIC PANE L - Collect Date/Time: 03/04/2024 11:10 [facility] ID: [id number] [address] [place], [place], [id number] LOINC: 18671-8 Test Value Unit Reference Range Code Code [...] 8-9 LOINC ANION GAP 16 L=10 H=20 34198-7 LOINC OSMOLALITY 288 mOs/kG L=280 H=296 14977-3 LOINC BUN/CREAT 11.3 3097-3 LOINC CALCIUM 9.7 mg/dL L=8.3 H=10.5 87758-6 LOINC AST 25 U/L L=15 H=46 1920-8 LOINC ALT 26 U/L L=9 H=72 1742-6 LOINC ALKALINE PHOS 58 U/L L=38 H=126 6768-6 LOINC TOTAL BILI 0.3 mg/dL L=0.2 H=1.3 1975-2 LOINC ALBUMIN 4.2 G/dL L=3.5 H=5.0 1751-7 LOINC TOTAL PROTEIN 7.6 g/L L=6.3 H=8.2 2885-2 LOINC A/G RATIO 1.2 77538-5 LOINC AGE 23 54984-2 LOINC eGFR NON-AFR 96 ml/min eGFR AFR AMER 116 ml/min TSH / REFLEX FT4 - Collect D ate/Time: 03/04/2024 11:10 [facility] ID: [id number] [address] [place], [place], [phone] LOINC: Test Value Unit Reference Range Code Code System Flag TSH 0.685 uIU/L L=0.470 H=4.680 11655-2 LOINC Social History Type Status Start Date End Date Code Code Syst em Smoking History Never smoker (Never Smoked) 932598968 SNOMED CT Sex Female Assessment You had [...] System OTHER GENERAL SYMPTOMS AND SIGNS active 615798611 SNOMED-CT ABDOMINAL PAIN active 97918456 SNOME D-CT ENCOUNTER FOR SCREENING FOR INFECTIONS WITH A PREDOMINANTLY SEXUAL MODE OF TRANS active 371765652 SNOMED- CT ENCOUNTER FOR SCREENING FOR RESPIRATORY TUBERCULOSIS active 275191376 SNO MED-CT LEFT LOWER QUADRANT PAIN active 22176 6002 SNOMED-CT ENCOUNTER FOR GYNECOLOGICAL EXAMINATION (GENERAL) (ROUTINE) WITHOUT ABNORMAL FIN active 16793489 SNOMED- CT Plan of Treatment No Data Found Encounters Encounter Diagnosis Start Date Code Code Sys tem Other fatigue 03/04/2024 SNOMED-CT Personal Care Team Section Performer Name Performer Role Active Date Inactive YULIANA Garcia PCP - Primary care physician 2022-09-10
--- OUTSIDE RECORDS SUMMARY | 2025-01-06 18:46 | XMS_ITS ---
Author Organization Unknown Address [address] [place] [phone] Phone Care Team Providers Care Distribution Engineering Technologist Name Role Phone BRIAN JENSENH Attending Unavailable [...] RSV PCR - Collect Date/Time: 10/21/2023 14:45 [facility] [id number] [address] [place], [place], [id number] LOINC: 03394-7 Test Value Unit Reference Range Code Code System Flag SARS CoV2 PCR NEGATIVE FLU A PCR NEGATIVE FLU B PCR NEGATIVE RSV PCR NEGATIVE SEND TO [facility]? YES A Social History Type Status Start Date End Date Code Code Syst em Smoking History Never smoker (Never Smoked) 384472381 SNOMED CT Sex Female Assessment You had [...] System OTHER GENERAL SYMPTOMS AND SIGNS active 781321155 SNOMED-CT ABDOMINAL PAIN active 40433785 SNOME D-CT ENCOUNTER FOR SCREENING FOR INFECTIONS WITH A PREDOMINANTLY SEXUAL MODE OF TRANS active 447788367 SNOMED- CT ENCOUNTER FOR SCREENING FOR RESPIRATORY TUBERCULOSIS active 615374452 SNO MED-CT LEFT LOWER QUADRANT PAIN active 73786 6002 SNOMED-CT ENCOUNTER FOR GYNECOLOGICAL EXAMINATION (GENERAL) (ROUTINE) WITHOUT ABNORMAL FIN active 27461434 SNOMED- CT Plan of Treatment No Data Found Encounters Encounter Diagnosis Start Date Code Code Sys tem Other general symptoms and signs 10/21/2023 SNOMED-CT Personal Care Team Section Performer Name Performer Role Active Date Inactive YULIANA Garcia PCP - Primary care physician 2022-09-10
--- OUTSIDE RECORDS SUMMARY | 2025-01-06 18:46 | XMS_ITS ---
Author Organization Unknown Address [address] [place] [phone] Phone Care Team Providers Care District Administrative Assistant Name Role Phone BRIAN JENSENH Attending Unavailable [...] RSV PCR - Collect Date/Time: 09/29/2023 10:15 [facility] ID: [id number] [address] [place], [place], [id number] LOINC: 42459-7 Test Value Unit Reference Range Code Code System Flag SARS CoV2 PCR NEGATIVE FLU A PCR NEGATIVE FLU B PCR NEGATIVE RSV PCR NEGATIVE SEND TO [facility]? YES A Social History Type Status Start Date End Date Code Code Syst em Smoking History Never smoker (Never Smoked) 202013943 SNOMED CT Sex Female Assessment You had [...] System OTHER GENERAL SYMPTOMS AND SIGNS active 694446399 SNOMED-CT ABDOMINAL PAIN active 34809263 SNOME D-CT ENCOUNTER FOR SCREENING FOR INFECTIONS WITH A PREDOMINANTLY SEXUAL MODE OF TRANS active 072645328 SNOMED- CT ENCOUNTER FOR SCREENING FOR RESPIRATORY TUBERCULOSIS active 684230141 SNO MED-CT LEFT LOWER QUADRANT PAIN active 21772 6002 SNOMED-CT ENCOUNTER FOR GYNECOLOGICAL EXAMINATION (GENERAL) (ROUTINE) WITHOUT ABNORMAL FIN active 44132403 SNOMED- CT Plan of Treatment No Data Found Encounters Encounter Diagnosis Start Date Code Code Sys tem Nasal congestion 09/29/2023 34755589 SNOMED-CT Personal Care Team Section Performer Name Performer Role Active Date Inactive YULIANA Garcia PCP - Primary care physician 2022-09-10
[2025-01-06 18:53] VITALS: BP 123/71; PULSE 99
[2025-01-06 19:01] VITALS: BP 123/65; PULSE 99
[2025-01-06 19:16] VITALS: BP 120/66; PULSE 98
[2025-01-06 19:31] VITALS: BP 116/66; PULSE 89
[2025-01-06 19:46] VITALS: BP 114/68; PULSE 87
[2025-01-06 19:51] LABS: Add Urine Microscopic? YES; Appearance Urine Cloudy (Clear); Bacteria Urine 1+ /hpf; Bilirubin Urine Negative (Negative); Blood Urine Negative (Negative); Color Urine Yellow (Yellow); Glucose Urine UA Negative (Negative); Ketones Urine Negative (Negative); Leukocyte Esterase Ur 3+ LEU/UL (Negative); Need Manual Microscopic Reviewed; Nitrate Urine Negative (Negative); Non Pathogenic Casts 0-2; Protein Urine Negative (Negative); RBC Urine 0-2 /hpf (0-2); Specific Grav Ur 1.009 (1.001-1.035); Squamous Epithelial Cell Urine Few /hpf (Few); Urobilinogen Urine 0.2 mg/dL (<2.0); WBC Urine 0-5 /hpf (0-3)
[2025-01-06 20:01] VITALS: BP 119/65; PULSE 94
[2025-01-06 20:09] VITALS: BMI 33.2
--- NOTE | 2025-01-06 20:10 | OBADM ---
This patient, Sana Ortega, admitted to the OB room OB Post 117 for observation. Patient/family oriented to hospital policies and general routines including ID bracelet, bed and alarms, visiting hours, pain management, procedures, bathroom and other care routines, personal items, smoking policy, room service/diet, and visiting hours. Patient/Family are encouraged to report perceived risks to care and to ask questions if they do not understand what they are told or what they should do.
--- NOTE | 2025-01-29 20:22 | PM.OBTRLD ---
OB - Triage/Final Diagnosis Visit Information Comments/Additional reasons for admission: I have assessed the risk for this patient, Sana Ortega, and determined that she would benefit from observation care. Evaluation Laboratory results: Laboratory Tests 01/06/25 19:15 Urine Color Yellow Urine Appearance Cloudy H Urine pH 8.0 Ur Specific [place] 1.009 Urine Protein Negative Urine Glucose (UA) Negative Urine Ketones Negative Ur Blood (Man) Negative Urine Nitrate Negative Urine Bilirubin Negative Urine Urobilinogen 0.2 Add Ur Microanalysis Reviewed Leukocyte Esterase Rfl 3+ H Urine RBC 0-2 Urine WBC 0-5 Ur Squamous Epith Cells Few Urine Bacteria 1+ H Urine Casts 0-2 Final Diagnosis (1) Back pain affecting : Code(s): O99.891 - Other specified diseases and conditions complicating ; M54.9 - Dorsalgia, unspecified Status: Acute
== END 2025-01-06 20:35 | disposition home or self-care (01) ==
PROVIDERS: Admitting Provider Obstetrics & Gynecology; Visit Provider Obstetrics & Gynecology
DX: O99.891 Other specified diseases and conditions complicating pregnancy (principal); M54.9 Dorsalgia, unspecified; Z3A.28 28 weeks gestation of pregnancy
CPT/HCPCS: 81001; 87086; G0378; G0379

== ENCOUNTER 2025-03-01 01:10 | Observation (INO) | payer OTHER, SELFPAY ==
--- OUTSIDE RECORDS SUMMARY | 2025-03-01 01:17 | XMS_ITS | Data Portability ---
Author Organization [facility] [place] Address [address] [place] [place] [address] Care Team Providers Care Certified Prosthetist Name Role Phone ABHILASH PRINCE Primary Care Provider YARI SPIVEY Primary Care Provider [phone] Assessment Encounter Date Assessment Date Assessment LastModified by Organization Details LastModified Time 02/09/2025 02/09/2025 Patient is ___weeks . Discussed plan. Not available 02/09/2025 12:39:53 02/14/2025 02/14/2025 Patient is ___weeks . Discussed plan. Not available 02/14/2025 13:48:13 Plan of Treatment Reminders Order Date Submit Date Provider Last Modified By Organization Details Last Modified Time Details Appointments OB ROUTINE 2024 03:30P Jose D CEE MD Not available Not available Not available Lab None recorded. Referral None recorded. Procedures None recorded. Surgeries None recorded. Imaging non-stres s test 2024 025 [email or web address] [place], [address], [place], [address], 02/10/2025 00:17:56 US, obstetric , follow-up 2024 025 [email or web address] [place], [address], [place], [address], 02/09/2025 17:22:04 US, obstetric , biophysic al profile 2024 025 [email or web address] [place], [address], [place], [address], 02/09/2025 17:22:04 US, doppler, umbilical artery velocimet ry 2024 025 [email or web address] [place], [address], [place], [address], 02/09/2025 17:22:04 Medication Orders None recorded. Patient TargetsNo targets recorded. Patient InstructionsNo instructions recorded. Reason for Referral None Reported. Results Created Date Observation Date Name Description Value Unit Range Abnormal Flag Note LastModifiedBy Organization Detail LastModifiedTime 01/11/2001/10/2025 HEMAT OCRIT (HCT) HCT 34.6 % (based on docume nted legal sex) 34.0-4 5.0 Not Available [facility] (Lab) [address], [place], [address], 01/11/2025 13:02:44 01/11/20 25 01/10/2025 HEMOG LOBIN (HGB) HGB 11.3 g/dL (based on docume nted legal sex) 11.6-1 5.4 low Not Available [facility] (Lab) [address] [place], [address], 01/11/2025 13:02:45 01/11/20 25 01/10/2025 GTT - GESTA JOHNNA L SCREE N, ACOG OB glucose, 1 hour screen 101 mg/dL 70-135 Not Available [facility] (Lab) [address] [place], [address], 01/11/2025 13:02:45 01/11/20 25 01/10/2025 HIV 1/2 ANTIG EN/AN TIBOD Y, REFLE X CONFI RMATI ON HIV antigen/anti body Nonrea ctive nonrea ctive HIV-1 antig en and HIV-1 /HIV- 2 antib odies were not detec kalin. No labor atory evide nce of HIV infec tion. Not Available [facility] (Lab) [address], [place], [address], 01/11/2025 13:02:46 01/11/20 25 01/10/2025 RPR SCREE N, REFLE X TITER /CONF IRMAT ION RPR qualitative Nonrea ctive nonrea ctive Not Available [facility] (Lab) [address], [place], [address], 01/11/2025 13:02:46 01/11/20 25 01/10/2025 US, obste tric, follo w-up No observ ation record ed. [email or web address] [place] [address], [place], [address], 01/10/2025 12:40:37 01/11/20 25 01/10/2025 US, obste tric, follo w-up No observ ation record ed. [email or web address] [address], [place], [address], 01/10/2025 16:18:13 02/10/20 25 02/09/2025 US, obste tric, follo w-up No observ ation record ed. [address], [place], [address], 02/14/2025 18:39:17 02/10/20 25 02/09/2025 US, obste tric, follo w-up No observ ation record ed. [email or web address] [place] [address], [place], [address], 02/09/2025 13:50:31 02/10/20 25 02/09/2025 US, suyapa johnson, bioph ysica l profi le No observ ation record ed. [email or web address] [place] [address], [place], [address], 02/09/2025 13:50:47 02/10/20 25 02/09/2025 US, doppl er, umbil ical arter y veloc imetr y No observ ation record ed. [email or web address] [place] [address], [place], [address], 02/09/2025 13:50:58 02/10/20 25 02/09/2025 non-s tress test No observ ation record ed. [email or web address] [place] [address], [place], [address], 02/09/2025 16:21:02 02/15/20 25 02/14/2025 US, obste tric, bioph ysica l profi le + non-s tress test No observ ation record ed. [email or web address] [facility] [address], [place], [address], 02/15/2025 10:27:38 02/15/20 25 02/14/2025 US, obste tric, follo w-up No observ ation record ed. [email or web address] [facility] [address], [place], [address], 02/21/2025 12:44:18 Result Notes None recorded. Problems Name Problem SNOMED Code Status Onset Date Resolution Date Notes Provider Name and Address Organization Details Recorded Time Mixed anxiety and depressive disorder 202564508 Active 2022 Abby Cruz MD [address], [place], [address], [place] [facility] 3 15:27:32 Diverticul itis 493875388 Active 2022 Abby Cruz MD [address], [place], [address], [facility] 3 15:27:39 96215619 Active 2023 Rosanna aviles, [facility] 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 5 10:02:56 Herpes simplex 63699617 Active HSV 2 Valtex @ 36wks Cadence Fay null, [facility] 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 5 12:51:07 Problem Notes None recorded. Procedures Surgical History Date Name Laterality Status Provider Name and Address Organization Details Recorded Time 06/02/2023 Date of Last Pap Smear completed Rosanna Hobson [facility] 09/23/2024 12:46:58 Imaging Results Imaging Date Name Status LastModified by Organiz ation Details LastModified Time 01/10/2025 US, obstetric, follow-up completed [address], [place], [address], 01/10/2025 12:40:37 01/10/2025 US, obstetric, follow-up completed [email or web address] [address], [place], [address], 01/10/2025 16:18:13 02/09/2025 US, obstetric, follow-up completed [address], [place], [address], 02/14/2025 18:39:17 02/09/2025 US, obstetric, follow-up completed [address], [place], [address], 02/09/2025 13:50:31 02/09/2025 US, obstetric, biophysical profile completed [address], [place], [address], 02/09/2025 13:50:47 02/09/2025 US, doppler, umbilical artery velocimetry completed [email or web address] [place] [address], [place], [address], 02/09/2025 13:50:58 02/09/2025 non-stress test completed [email or web address] [place] [address], [place], [address], 02/09/2025 16:21:02 02/14/2025 US, obstetric, biophysical profile + non-stress test completed [facility] [address] [facility] [place], [address], 02/15/2025 10:27:38 02/14/2025 US, obstetric, follow-up completed [facility] [address], [place], [address], 02/21/2025 12:44:18 Procedure Notes None recorded. Medical Equipment None [...] completed Not Available Not Available Not Available valacyclovi r 1 gram tablet Take 1 tablet every 12 hours by oral route for 5 days, for Breakout. active Not Available Not Available No t Available hydrocodone 5 mg-acetamin ophen 325 mg [...] completed Not Available Not Available Not Available valacyclovi r 500 mg tablet Take 1 tablet twice a day by oral route. active Not Available Not Available No t Available ciprofloxac in 500 mg tablet 12/22 [...] Not Available Not Available ondansetron 4 mg disintegrat ing tablet 08/26 [...] Available Not Available Not Available amoxicillin 875 mg-potassiu m clavulanate 125 mg tablet 08/26 completed Not Available Not Available Not Available topiramate 50 mg tablet 08/26 completed Not Available Not Available Not Available nitrofurant oin monohydrate /macrocryst als 100 mg capsule Take 1 capsule every 12 hours by oral route as directed for 7 days. 02/09 completed Not Available Not Available Not Available [...] and Address Organization Details Last Updated DateTime 01/25/2025 157.48 cm 34.4 kg/m2 46114.37 g 125 mm[Hg] 78 mm[Hg] NICKOLAS Spann [facility] 12:07:57 Date Recorded Body height Body mass index (BMI) Body weight Systolic blood pressure Diastolic blood pressure Provider Name and Address Organization Details Last Updated DateTime 02/09/2025 157.48 cm 34.9 kg/m2 09156.14 g 136 mm[Hg] 86 mm[Hg] Rosanna Hobson [facility] 5 12:40:14 Date Recorded Body height Body mass index (BMI) Body weight Systolic blood pressure Diastolic blood pressure Provider Name and Address Organization Details Last Updated DateTime 02/09/2025 157.48 cm 34.9 kg/m2 52692.14 g 136 mm[Hg] 86 mm[Hg] NICKOLAS Spann [facility] 16:20:03 Date Recorded Body weight Systolic blood pressure Diastolic blood pressure Provider Name and Address Organization Details Last Updated DateTime 02/14/2025 67368.5121 5 g 130 mm[Hg] 83 mm[Hg] Rosanna Joce [facility] 02/14/2025 13:49:52 Social History Question Answer Notes LastModified by Organizat ion Details LastModified Time Tobacco Smoking Status Never Smoker Manuela Townsend stefan, [facility] 12/15/2022 16:18:11 Do You Have An Advance Directive? No [email or web address] Information not available 01/25/2025 What Is Your Level Of Alcohol Consumption? None Information not available 01/25/2025 Are You Blind Or Do You Have Difficulty Seeing? No [email or web address] Information not available 01/25/2025 What Is Your Level Of Caffeine Consumption? Moderate [email or web address] Information not available 01/25/2025 How Much Tobacco Do You Chew? None [email or web address] Information not available 01/25/2025 In The 14 Days Before Symptom Onset, Have You Had Close Contact With A Laboratory-confir med COVID-19 While That Case Was Ill? No [email or web address] Information not available 01/25/2025 In The 14 Days Before Symptom Onset, Have You Had Close Contact With A Person Who Is Under Investigation For COVID-19 While That Person Was Ill? No [email or web address] Information not available 01/25/2025 Have You Been To An Area Known To Be High Risk For COVID-19? No Information not available 01/25/2025 Are You Currently Employed? No [email or web address] Information not available 12/15/2022 Are You Deaf Or Do You Have Serious Difficulty Hearing? No [email or web address] Information not available 01/25/2025 What Type Of Diet Are You Following? REGULAR Information not available 01/25/2025 Do You Or Have You Ever Used E-cigarettes Or Vape? Current User Of Electronic Cigarettes [email or web address] Information not available 12/15/2022 What Is The Highest Grade Or Level Of School You Have Completed Or The Highest Degree You Have Received? BO13800-3 [email or web address] Information not available 01/25/2025 What Is Your Occupation? [employer] [email or web address] Information not available 11/14/2024 Are There Any Guns Present In Your Home? No [email or web address] Information not available 01/25/2025 Do You Use Protection During Sex? No [email or web address] Information not available 01/25/2025 Do You Use Your Seat Belt Or Car Seat Routinely? Yes Information not available 01/25/2025 Are You Sexually Active? Yes [email or web address] Information not available 12/15/2022 Do You Have Smoke And Carbon Monoxide Detectors In Your Home? Yes [email or web address] Information not available 01/25/2025 At What Age Did You Start Smoking Tobacco? 18 [email or web address] Information not available 01/25/2025 How Much Tobacco Do You Smoke? No [email or web address] Information not available 01/25/2025 Do You Feel Stressed (tense, Restless, Nervous, Or Anxious, Or Unable To Sleep At Night)? [id number] Information not available 01/25/2025 Do You Use Any Illicit Or Recreational Drugs? No Information not available 01/25/2025 Do You Use Sunscreen Routinely? Yes [email or web address] Information not available 01/25/2025 How Many Years Have You Smoked Tobacco? 6 [email or web address] Information not available 01/25/2025 Have You Used IV Drugs? No [email or web address] Information not available 01/25/2025 Do You Or Have You Ever Used Any Other Forms Of Tobacco Or Nicotine? Yes [email or web address] Information not available 12/15/2022 Sex: Unknown Functional Status Question Answer Note LastModified by Organizat ion Details LastModified Time Do you have difficulty walking or climbing stairs? No [email or web address] Information not available 12/15/2022 Are you able to walk? YESWOREST [email or web address] Information not available 01/25/2025 Are you able to care for yourself? Yes [email or web address] Information not available 12/15/2022 Do you have difficulty dressing or bathing? No [email or web address] Information not available 12/15/2022 What is your exercise level? Moderate [email or web address] Information not available 01/25/2025 Mental Status None recorded. Family History Relationship Description Onset Age of this Age Resolved Age Notes LastModified by Organization Details LastModified Time Maternal Grandmother Diabetes mellitus [email or web address] Not available 10/21 16:07:37 Maternal Grandmother Lymphosarcom a [email or web address] Not available 01/31 12:47:59 Maternal Grandmother Diabetes mellitus [email or web address] Not available 01/31 12:47:59 Maternal Grandfather Diabetes mellitus [email or web address] Not available 10/21 16:07:37 Maternal Grandfather Diabetes mellitus [email or web address] Not available 01/31 12:47:59 Mother Diabetes mellitus [email or web address] Not available 10/21 16:07:37 Mother Diabetes mellitus [email or web address] Not available 01/31 12:48:00 Medical History Condition Response Anxiety Disorder Y Depression/ depression Y Headaches Y GI Problems Y Gynecological History Statement/Question Response Abnormal Pap N Flow Moderate Date of Last Mammogram Date of LMP 06/23/2024 N Was last menstrual period normal Y STIs/STDs N HPV Vaccine N Duration of Flow (days) 7 Current Control Method Are cycles usually normal Y Sexually Active? Y Menses Monthly Y Date of DEXA bone scan Age of first menstrual cycle 14 Date of Last Pap Smear 06/02/2023 Sexual Problems? N LMP Approximate N Obstetrics History GPAL:G 1 P 0 0 0 0 Type Value Living 0 Total 1 Past Encounters Encounter ID Performer Location Encounter Start Date Encounter Closed Date Diagnosis/Indication Diagnosis SNOMED-CT Code Diagnosis ICD10 Code Diagnosis Note [id number] CELSA Ferreira [place] [address] [address] 02/27/2022 11:52:20 02/27/2022 13:09:02 Contraception care management 704276269 Z30.9 Venereal d isease screening 073225075 Z11.3 Gynecologi c examination 54652485 Z01.419 Take Calcium with Vitamin D 1200mg [...] med check Sexually t ransmitted infectious disease 9109604 A64 [id number] Yolande Hanna [place] [address],[place] [address] 12/15/2022 16:18:02 12/15/2022 17:10:47 Pain in pelvis 23172533 R10.2 [id number] Abby Cruz MD [place] [address],[place] [address] 12/22/2022 15:21:07 12/23/2022 12:38:05 Dysmenorrhea 150634590 N94.6 [id number] [facility] [address],[place] [address] 08/26/2024 12:12:22 08/29/2024 10:14:13 [id number] SADIE RABAGO MD [place] [address] [address] 08/26/2024 13:47:06 08/26/2024 14:41:23 test positive 158905660 Z32.01 1. Exam today within normal limits.2. [...] at 10 weeks, orders given today. Migraine 66506970 G43.90 9 - previously on topiramate - daily mild headaches, somewhat relieved with tylenol- discussed caffeine and B2, will send referral to [facility] if still unrelieved screening 2437 57249 Z36.89 [id number] [facility] [address],[place] [address] 09/23/2024 11:58:30 09/23/2024 12:37:15 screening 518396696 Z36.82 Z3A.13 [id number] SADIE RABAGO MD [place] [address],[place] [address] 09/23/2024 11:58:50 09/23/2024 14:15:19 Routine care 648192141 Z34.91 [id number] SADIE RABAGO MD [place] [address],[place] [address] 10/21/2024 15:53:27 10/21/2024 16:32:34 Gestation period, 17 weeks 05423849 Z3A.17 - continue PNV Mixed anxi ety and depressive disorder 900828656 F41.8 - mood stable on fluoxetine 20mg [id number] [facility] [address],[place] [address] 11/14/2024 14:50:43 11/14/2024 16:35:10 screening for malformation 002753734 Z36.3 Z3A.20 [id number] SADIE RABAGO MD [place] [address],[place] [address] 11/14/2024 14:51:11 11/16/2024 03:00:30 Exposure to sexually transmissible disorder 584785825 Z20.2 - partner recently diagnosed with gHSV- lesion found last week, swab sent off lesion today- will treat then start suppressio n if positive Gestation period, 20 weeks 11749193 Z3A.20 - continue PNV- anatomy incomplete , [facility] in 4 [facility] [id number] [facility] [address],[place] [address] 12/13/2024 14:31:26 12/13/2024 16:06:38 screening 982298890 Z36.2 Z3A.24 [id number] SADIE RABAGO MD [place] [address],[place] [address] 12/13/2024 14:31:43 12/13/2024 16:01:28 Genital herpes simplex 85445209 A60.9 - confirmed at 20 weeks- plan for 36 week suppressiv e therapy Disorder of placenta 125 847654 O43.90 - bilobed placenta- EFW 24% at 24 weeks- repeat growth US at 32 weeks Gestation period, 24 weeks 563230186 Z3A.24 - continue pNV [id number] [facility] [address],[place] [address] 01/10/2025 10:54:57 01/10/2025 11:56:32 screening 598322367 Z36.2 O43.102 Z3A.28 [id number] SADIE RABAGO MD [place] [address],[place] [address] 01/10/2025 10:55:25 01/10/2025 12:49:46 Disorder of placenta 728527728 O43.90 - bilobed placenta- EFW 24% at 24 weeks, 19% at 28 weeks- repeat growth US at 32 weeks Gestation period, 28 weeks 87580739 Z3A.28 - continue PNV- GCT and labs collected today [id number] SADIE RABAGO MD [place] [address],[place] [address] 01/25/2025 11:56:16 01/25/2025 12:40:31 Disorder of placenta 523193508 O43.90 - bilobed placenta- EFW 24% at 24 weeks, 19% at 28 weeks- repeat growth US at 32 weeks Gestation period, 30 weeks 26909912 Z3A.30 - continue PNV [id number] [facility] [address],[place] [address] 02/09/2025 11:53:36 02/09/2025 12:58:20 Small for gestational age fetus 130136692 O36.5930 Z3A.33 [id number] Luisito Cee MD [place] [address],[place] [address] 02/09/2025 11:53:50 02/09/2025 12:58:06 Routine care 483292344 Z34.80 [id number] [facility] [address],[place] [address] 02/09/2025 14:46:47 02/09/2025 16:40:15 growth restriction 17848495 O36.5999 [id number] [facility] [address] [address] 02/14/2025 12:47:53 02/14/2025 14:19:52 Routine care 110515072 Z34.80 Health Concerns Section Related Observation LastModified by Organization Detai ls LastModified Time None Recorded Concern Status LastModified by Organization Details LastModified Time None Recorded Advance Directives Directive N: Payers Oksanadieter [id number]|2025-03-20 21:18:10|2025-03-20 21:18:10|PM.[email or web address]||||"OB - Triage/Final Diagnosis Visit Information Comments/Additional reasons for admission: I have assessed the risk for this patient, Sana Ortega, and determined that she would benefit from observation care. Evaluation Laboratory results: Laboratory Tests 03/01/25 01:18 Urine Color Yellow Urine Appearance Clear Urine pH 6.5 Ur Specific [place] 1.015 Urine Protein Negative Urine Glucose (UA) Negative Urine Ketones Negative Ur Blood (Man) Trace-intact H Urine Nitrate Negative Urine Bilirubin Negative Urine Urobilinogen 0.2 Leukocyte Esterase Rfl 1+ H Urine RBC 3-5 H Urine WBC 0-5 Ur Squamous Epith Cells Occasional Urine Bacteria None seen Final Diagnosis (1) False labor: Code(s): O47.9 - False labor, unspecified Status: Acute"
--- OUTSIDE RECORDS SUMMARY | 2025-03-01 01:17 | XMS_ITS ---
Author Organization Unknown Address [address] [place] [phone] Phone Care Team Providers Care Ad Taker Name Role Phone ALLYSSA GREENBERG Attending Unavailable [...] DIFF - Collect Date/T car: 03/04/2024 11:10 [facility] ID: [id number] [address] [place], [place], [id number] LOINC: 82342-4 Test Value Unit Reference Range Code Code System Flag WBC 10.2 10^3uL L=4.8 H=10.8 RBC 4.45 10^6uL L=4.20 H=5.40 HEMOGLOBIN 13.2 g/dL L=12.0 H=16.0 718-7 LOINC HEMATOCRIT 39.1 VOL% L=37.0 H=47.0 4544-3 LOINC MCV 87.9 fL L=81.0 H=99.0 MCH 29.7 pg L=27.0 H=32.0 MCHC 33.8 g/dL L=32.0 H=36.0 PLATELETS 313 10^3uL L=100 H=400 46913-4 LOINC RDW 11.8 % L=11.7 H=15.5 %GRAN 62.7 % L=40.0 H=70.0 49500-4 LOINC %LYMPH 31.1 % L=20.0 H=45.0 736-9 LOINC %MONO 4.9 % L=2.0 H=10.0 88798-2 LOINC %EOS 0.7 % L=0.0 H=6.0 713-8 LOINC %BASO 0.3 % L=0.0 H=3.0 706-2 LOINC #NEUT 6.4 10^3uL L=1.9 H=7.6 16431-1 LOINC #LYMPH 3.2 10^3uL L=0.9 H=4.9 88210-8 LOINC #MONO 0.5 10^3uL L=0.1 H=0.9 68097-2 LOINC #EOS 0.1 10^3uL L=0.0 H=0.6 712-0 LOINC #BASO 0.03 10^3uL L=0.00 H=0.10 84974-3 LOINC #IM GRANS 0.0 10^3uL L=0.0 H=7.0 03289-7 LOINC %IM GRANS 0.3 % L=0.0 H=5.0 83200-4 LOINC %NRB 0.0 L=0.0 H=0.2 21972-8 LOINC #NRB 0.000 L=0.000 H=0.012 22722-0 LOINC MANUAL DIFF NOT INDICATED RBC MORPH NOT INDICATED COMPREHENSIVE METABOLIC PANE L - Collect Date/Time: 03/04/2024 11:10 [facility] ID: [id number] [address] [place], [place], [id number] LOINC: 48395-8 Test Value Unit Reference Range Code Code [...] 8-9 LOINC ANION GAP 16 L=10 H=20 30250-6 LOINC OSMOLALITY 288 mOs/kG L=280 H=296 37821-8 LOINC BUN/CREAT 11.3 3097-3 LOINC CALCIUM 9.7 mg/dL L=8.3 H=10.5 43007-2 LOINC AST 25 U/L L=15 H=46 1920-8 LOINC ALT 26 U/L L=9 H=72 1742-6 LOINC ALKALINE PHOS 58 U/L L=38 H=126 6768-6 LOINC TOTAL BILI 0.3 mg/dL L=0.2 H=1.3 1975-2 LOINC ALBUMIN 4.2 G/dL L=3.5 H=5.0 1751-7 LOINC TOTAL PROTEIN 7.6 g/L L=6.3 H=8.2 2885-2 LOINC A/G RATIO 1.2 58007-7 LOINC AGE 23 72773-3 LOINC eGFR NON-AFR 96 ml/min eGFR AFR AMER 116 ml/min TSH / REFLEX FT4 - Collect D ate/Time: 03/04/2024 11:10 [facility] ID: [id number] [address] [place], [place], [id number] LOINC: Test Value Unit Reference Range Code Code System Flag TSH 0.685 uIU/L L=0.470 H=4.680 41743-8 LOINC Social History Type Status Start Date End Date Code Code Syst em Smoking History Never smoker (Never Smoked) 730650274 SNOMED CT Sex Female Assessment You had [...] System OTHER GENERAL SYMPTOMS AND SIGNS active 055601055 SNOMED-CT ABDOMINAL PAIN active 00970104 SNOME D-CT ENCOUNTER FOR SCREENING FOR INFECTIONS WITH A PREDOMINANTLY SEXUAL MODE OF TRANS active 440556211 SNOMED- CT ENCOUNTER FOR SCREENING FOR RESPIRATORY TUBERCULOSIS active 549280153 SNO MED-CT LEFT LOWER QUADRANT PAIN active 26415 6002 SNOMED-CT ENCOUNTER FOR GYNECOLOGICAL EXAMINATION (GENERAL) (ROUTINE) WITHOUT ABNORMAL FIN active 95618567 SNOMED- CT Plan of Treatment No Data Found Encounters Encounter Diagnosis Start Date Code Code Sys tem Other fatigue 03/04/2024 SNOMED-CT Personal Care Team Section Performer Name Performer Role Active Date Inactive YULIANA Garcia PCP - Primary care physician 2022-09-10
--- OUTSIDE RECORDS SUMMARY | 2025-03-01 01:17 | XMS_ITS ---
Author Organization Unknown Address [address] [place] [phone] Phone Care Team Providers Care Head Rigger Name Role Phone ALLYSSA GREENBERG Attending Unavailable [...] HCG-QUANT - Collect Bertram e/Time: 04/29/2024 14:20 [facility] ID: [id number] [address] [place], [place], [id number] LOINC: 49164-8 Test Value Unit Reference Range Code Code System Flag BETA HCG-QUANT < 2.39 mIU/mL L=0.00 H=6.00 97158-9 LOINC Social History Type Status Start Date End Date Code Code Syst em Smoking History Never smoker (Never Smoked) 841126438 SNOMED CT Sex Female Assessment You had [...] System OTHER GENERAL SYMPTOMS AND SIGNS active 962961540 SNOMED-CT ABDOMINAL PAIN active 70569927 SNOME D-CT ENCOUNTER FOR SCREENING FOR INFECTIONS WITH A PREDOMINANTLY SEXUAL MODE OF TRANS active 035281991 SNOMED- CT ENCOUNTER FOR SCREENING FOR RESPIRATORY TUBERCULOSIS active 156693888 SNO MED-CT LEFT LOWER QUADRANT PAIN active 36128 6002 SNOMED-CT ENCOUNTER FOR GYNECOLOGICAL EXAMINATION (GENERAL) (ROUTINE) WITHOUT ABNORMAL FIN active 55412954 SNOMED- CT Plan of Treatment No Data Found Encounters Encounter Diagnosis Start Date Code Code Sys tem test positive 04/29/2024 [id number] [facility] ED-CT Personal Care Team Section Performer Name Performer Role Active Date Inactive YULIANA Garcia PCP - Primary care physician 2022-09-10
--- OUTSIDE RECORDS SUMMARY | 2025-03-01 01:17 | XMS_ITS | Clinical Summary ---
Author Organization [facility] Address [address] [place] [phone] Care Team Providers Care Stitch Bonding Machine Tender Helper Name Role Phone Sukumar Guerrero SLATE SPLITTING SUPERVISOR Student Primary Care Provider Unavailable Allergies No [...] on file Legal Sex Female 1:15 PM KINESIOTHERAPIST Gender Identity Not on file Sexual Orientation Not on file Last Filed Vital Signs Vital Sign Reading Time Taken Comments Blood Pressure 116/64 10/06/2024 5:00 PM KINESIOTHERAPIST Pulse 88 10/06/2024 2:24 PM KINESIOTHERAPIST Temperature 36.5 C (97.7 F) 10/06/2024 2:24 PM KINESIOTHERAPIST Respiratory Rate 18 10/06/2024 2:24 PM KINESIOTHERAPIST Oxygen Saturation 100% 10/06/2024 5:00 PM KINESIOTHERAPIST Inhaled Oxygen Concentration - - Weight 77.3 kg (170 lb 6 oz) 10/06/2024 2:24 PM KINESIOTHERAPIST Height 160 cm (5' 3 ) 10/06/2024 2:24 PM KINESIOTHERAPIST Body Mass Index 30.18 10/06/2024 2:24 PM KINESIOTHERAPIST Plan of Treatment Health Maintenance Due Date Last Done Comments Annual Physical 2005 Meningococcal B Vaccine (2 of 2 - Bexsero SCDM 2-dose series) 10/25/2020 04/25/2020 COVID-19 Vaccine ( season) 2024 01/09/2022, 01/25/2021 Cervical Cancer Screening Pap Smear (Age 21 to 29) Every 3 Years 08/26/2027 08/26/2024 Cervical Cancer Screening 08/26/2027 DTaP, Tdap and Td Vaccines (8 - Td or Tdap) 02/08/2034 02/09/2024, 06/06/2014, 06/16/2007, Additional history exists Hepatitis B Vaccines Completed 06/12/2003, 03/16/2003, 2002 Pneumococcal Vaccine: Pediatrics (0 to 5 Years) and At-Risk Patients (6 to 49 Years) Aged Out 11/08/2003, 06/12/2003, 04/24/2003, Additional [...] to complete this topic Insurance Care Teams Stitch Bonding Machine Tender Helper Relationship Specialty Start Date End Date Sukumar Guerrero NP Student PCP - General 10/06/24
--- OUTSIDE RECORDS SUMMARY | 2025-03-01 01:18 | XMS_ITS ---
Author Organization Unknown Address [address] [place] [phone] Phone Care Team Providers Care Tool And Fixture Repairer Name Role Phone BRAVO MARKEL Attending Unavailable [...] SERUM - Colle ct Date/Time: 01/13/2024 09:11 [facility] ID: [id number] [address] [place], [place], [phone] LOINC: Test Value Unit Reference Range Code Code System Flag SERUM PREG NEGATIVE Social History Type Status Start Date End Date Code Code Syst em Smoking History Never smoker (Never Smoked) 850779640 SNOMED CT Sex Female Assessment You had [...] System OTHER GENERAL SYMPTOMS AND SIGNS active 149480125 SNOMED-CT ABDOMINAL PAIN active 53221922 SNOME D-CT ENCOUNTER FOR SCREENING FOR INFECTIONS WITH A PREDOMINANTLY SEXUAL MODE OF TRANS active 040602766 SNOMED- CT ENCOUNTER FOR SCREENING FOR RESPIRATORY TUBERCULOSIS active 551402394 SNO MED-CT LEFT LOWER QUADRANT PAIN active 63389 6002 SNOMED-CT ENCOUNTER FOR GYNECOLOGICAL EXAMINATION (GENERAL) (ROUTINE) WITHOUT ABNORMAL FIN active 60903147 SNOMED- CT Plan of Treatment No Data Found Encounters Encounter Diagnosis Start Date Code Code Sys tem Excessive and frequent menstruation with regular cycle 01/13/2024 SNOMED-CT Personal Care Team Section Performer Name Performer Role Active Date Inactive YULIANA Garcia PCP - Primary care physician 2022-09-10
--- OUTSIDE RECORDS SUMMARY | 2025-03-01 01:18 | XMS_ITS | Clinical Summary ---
Author Organization [facility] Address [address] [place] [address] Care Team Providers Care Water Pollution Control Technician Name Role Phone Unavailable Primary Care Provider Unavailabl e Source Comments [facility],non-owned Affiliates and Associated Physician Practices is amultiple site organization consisting of ambulatory clinics and hospital sitesin [place], [place], [place] and [place]. This disclosure is being madepursuant to the Care Everywhere program and may not contain all information available regarding this patient. Last updated 18.[facility] XTRM Allergies No known active allergies Active Problems Problem Noted Date Diagnosed Date SGA (small for gestational a ge), , affecting care of mother, antepartum, third trimester, fetus 1 02/13/2025 Estimated Date of Delivery Comme nts Yes 03/30/2025 Based on last me nstrual period of 06/23/2024 Encounters Date Type Department Care Team Description 02/14/2025 9:45 AM CDT - 02/14/2025 11:59 PM CDT Hospital Encounter [facility] Women's Health Maternal & Care [address] [place] [address] Antwon Romero MD Discharge Disposition: Home or Self Care from Last 3 Months Social History Tobacco Use Types Packs/Day Years Used Date Smoking Tobacco: Never Assessed Estimated Date of Delivery Comme nts Yes 03/30/2025 Based on last me nstrual period of 06/23/2024 Sex and Gender Information Value Date Recorded Sex Assigned at Not on file Legal Sex Female 11:56 AM CDT Gender Identity Not on file Sexual Orientation Not on file Plan of Treatment Upcoming Encounters Date Type Department Care Team (Late st Contact Info) Description 03/10/2025 9:45 AM CDT Hospital Encounter [facility] Women's Health Maternal & Care [address] [phone] Health Maintenance Due Date Last Done Comments PAP SMEAR 2002 HPV VACCINE (1 - 3-dose series) 2017 CHLAMYDIA/GONORRHEA SCREENING 2018 MENINGOCOCCAL (Group B) VACCINE SHARED DECISION-MAKING (1 of 2 - Standard) 2018 HEPATITIS C SCREENING 06/05/2020 DTAP/TDAP/TD VACCINES (1 - Tdap) 2021 HEPATITIS B VACCINE (1 of 3 - 19+ 3-dose series) 2021 COVID-19 VACCINE (3 - 2023-2 5 season) 2024 01/09/2022, 01/25/2021 DEPRESSION SCREENING 11/02/2024 OB-ONE HOUR GLUCOSE 12/22/2024 OB-TDAP CURRENT 12/29/2024 OB-RHOGAM INJECTION 01/05/2025 OB-GROUP B STREP SCREEN 02/23/2025 INFLUENZA VACCINE (Season Ended) 2025 07/28/2017, 11/08/2003, 07/26/2003 ZOSTER VACCINE (1 of 2) 2052 HIV SCREENING Completed 01/10/2025 HIB VACCINE Aged Out No longer eligi ble based on patient's age to complete this topic MENINGOCOCCAL GROUPS A/C/Y/W VACCINE Aged Out No longer eligible b ased on patient's age to complete this topic PNEUMOCOCCAL VACCINE Aged Out No long er eligible based on patient's age to complete this topic Respiratory Syncytial Virus (RSV) Vaccine Pt: or over 60 yrs (No Doses Required) Completed Procedures Procedure Name Priority Date/Time Associated Diagnosis Comments BIOPHYSICAL PROFILE W NST Routine 02/14/2025 9:46 AM CDT SGA (small for gestational age), , affecting care of mother, antepartum, third trimester, fetus 1 (HCC) Obesity affecting in third trimester, unspecified obesity type (HCC) from Last 3 Months Results * BIOPHYSICAL PROFILE W NST (02/14/2025 9:46 AM CDT) Linked Results Indication ======== SGA on Outside Scan Class I Obesity in History ====== OB History 1 Lab Tests Test Date Result NIPT Low risk, Male Maternal Assessment Physical Exam Height 157 cm, 5 ft 2 in. Initial weight 87 kg, 191 lb. Initial BMI 34.93 kg/m Method ====== Transabdominal ultrasound. View: Sufficient ========= Calderon . Number of fetuses: 1 Dating ====== Date Details Gest. age NA LMP 06/23/2024 33 w + 5 d 03/30/2025 U/S 02/14/2025 based upon AC, BPD, Femur, HC 35 w + 0 d 03/21/2025 Assigned dating based on the LMP, selected on 02/14/2025 33 w + 5 d 03/30/2025 General Evaluation Cardiac activity present. FHR 157 bpm. Presentation: cephalic Placenta: Placental site: anterior Umbilical cord: Cord vessels: 3 vessel cord. Insertion site: normal insertion Amniotic fluid: Amount of AF: normal. MVP 4.4 cm. DEANN 15.6 cm. Q1 3.7 cm, Q2 4.4 cm, Q3 4.1 cm, Q4 3.5 cm Biometry BPD 89.5 mm 36w 2d 97% Hadlock HC 329.9 mm 37w 4d 95% Hadlock Cerebellum tr 46.7 mm 82% [place] AC 293.0 mm 33w 2d 40% Hadlock Femur 63.0 mm 32w 4d 14% Hadlock Humerus 54.9 mm 32w 0d 15% Don HC / AC 1.13 -/- Hadlock Weight Calculation: EFW 2,274 g 45% Hadlock EFW (lb,oz) 5 lb 0 oz EFW by Hadlock ([id number]) appropriate Growth Overview Exam date GA BPD (mm) HC (mm) AC (mm) FL (mm) HL (mm) EFW (g) 02/14/2025 33w 5d 89.5 97% 329.9 95% 293 40% 63 14% 54.9 15% 2274 45% Anatomy Face Profile: nasal bone present. The following structures appear normal: Head / Neck Cranium. Lateral ventricles. Choroid plexus. Midline falx. Cavum septi pellucidi. Cerebellum. Cisterna magna. Thalami. Face Lips. Nose. Heart / Thorax 4-chamber view. RVOT view. LVOT view. 3-vessel view. 2-iaoigk-jajmuhr view. Situs. Bicaval view. Ductal arch view. Great vessels. Right lung. Left lung. Abdomen Cord insertion. Stomach. Kidneys. Bladder. Bowel. Genitals. Extremities / Skeleton Arms. Legs. Right foot. The following structures could not be adequately visualized: Face Orbits. Heart / Thorax Aortic arch view. Interventricular septum. Diaphragm. Spine Cervical spine. Thoracic spine. Lumbar spine. Sacral spine. Extremities / Skeleton Hands. Left foot. sex: male. Maternal Structures Right Ovary Normal Left Ovary Not visualized Appearance: Adnexa appears normal Impression ========= Single, live, intrauterine at 33w 5d The size is appropriate. The amniotic fluid volume is normal. No major malformations were seen within the limitations of ultrasound Follow-up ======== Follow up ultrasound in 3 weeks for growth and to complete anatomic survey Coding ====== Procedures 88778: US Preg Uterus Detailed [facility] Quantopian PACS Anatomical Region Laterality Modality Other 02/14/2025 9:46 AM CDT R Willy Cee MD [facility] ORDERABLES Edited Result - Final from Last [address] [place] [address] [address]
--- OUTSIDE RECORDS SUMMARY | 2025-03-01 01:18 | XMS_ITS ---
Author Organization Unknown Address [address] [place] [phone] Phone Care Team Providers Care Supervisor Wood Crew Name Role Phone SCOOBY MONTOYA Attending Unavailable [...] HCG-QUANT - Collect Bertram e/Time: 07/28/2024 08:44 [facility] ID: [id number] [address] [place], [place], [phone] LOINC: 85478-3 Test Value Unit Reference Range Code Code System Flag BETA HCG-QUANT 8219.20 mIU/mL L=0.00 H=6.00 15508-1 LOINC H Social History Type Status Start Date End Date Code Code Syst em Smoking History Never smoker (Never Smoked) 887688745 SNOMED CT Sex Female Assessment You had [...] System OTHER GENERAL SYMPTOMS AND SIGNS active 747142837 SNOMED-CT ABDOMINAL PAIN active 75922861 SNOME D-CT ENCOUNTER FOR SCREENING FOR INFECTIONS WITH A PREDOMINANTLY SEXUAL MODE OF TRANS active 170877570 SNOMED- CT ENCOUNTER FOR SCREENING FOR RESPIRATORY TUBERCULOSIS active 971946009 SNO MED-CT LEFT LOWER QUADRANT PAIN active 68360 6002 SNOMED-CT ENCOUNTER FOR GYNECOLOGICAL EXAMINATION (GENERAL) (ROUTINE) WITHOUT ABNORMAL FIN active 75504774 SNOMED- CT Plan of Treatment No Data Found Encounters Encounter Diagnosis Start Date Code Code Sys tem Encounter for test, result positive 07/28/20 SNOMED-CT Personal Care Team Section Performer Name Performer Role Active Date Inactive YULIANA Garcia PCP - Primary care physician 2022-09-10
--- OUTSIDE RECORDS SUMMARY | 2025-03-01 01:18 | XMS_ITS ---
Author Organization Unknown Address [address] [place] [address] [phone] Phone Care Team Providers Care Electrical Logging Engineer Name Role Phone BRIAN JENSENH Attending Unavailable [...] RSV PCR - Collect Date/Time: 10/21/2023 14:45 [facility] ID: [id number] [address] [place], [place], [phone] LOINC: 02357-7 Test Value Unit Reference Range Code Code System Flag SARS CoV2 PCR NEGATIVE FLU A PCR NEGATIVE FLU B PCR NEGATIVE RSV PCR NEGATIVE SEND TO [facility]? YES A Social History Type Status Start Date End Date Code Code Syst em Smoking History Never smoker (Never Smoked) 911486610 SNOMED CT Sex Female Assessment You had [...] System OTHER GENERAL SYMPTOMS AND SIGNS active 361043497 SNOMED-CT ABDOMINAL PAIN active 58680106 SNOME D-CT ENCOUNTER FOR SCREENING FOR INFECTIONS WITH A PREDOMINANTLY SEXUAL MODE OF TRANS active 369263440 SNOMED- CT ENCOUNTER FOR SCREENING FOR RESPIRATORY TUBERCULOSIS active 106271768 SNO MED-CT LEFT LOWER QUADRANT PAIN active 39719 6002 SNOMED-CT ENCOUNTER FOR GYNECOLOGICAL EXAMINATION (GENERAL) (ROUTINE) WITHOUT ABNORMAL FIN active 51420821 SNOMED- CT Plan of Treatment No Data Found Encounters Encounter Diagnosis Start Date Code Code Sys tem Other general symptoms and signs 10/21/2023 SNOMED-CT Personal Care Team Section Performer Name Performer Role Active Date Inactive YULIANA Garcia PCP - Primary care physician 2022-09-10
--- OUTSIDE RECORDS SUMMARY | 2025-03-01 01:18 | XMS_ITS ---
Author Organization Unknown Address [address] [place] [phone] Phone Care Team Providers Care Water And Sewer Systems Supervisor Name Role Phone JOSE MARTINEZ Attending Unavailable [...] RSV PCR - Collect Date/Time: 11/24/2024 12:17 [facility] ID: [id number] [address] [place], [place], [id number] LOINC: 71088-2 Test Value Unit Reference Range Code Code System Flag SARS CoV2 PCR NEGATIVE FLU A PCR NEGATIVE FLU B PCR NEGATIVE RSV PCR NEGATIVE SEND TO [facility]? NO Social History Type Status Start Date End Date Code Code Syst em Smoking History Never smoker (Never Smoked) 667851673 SNOMED CT Sex Female Assessment You had [...] System OTHER GENERAL SYMPTOMS AND SIGNS active 403205797 SNOMED-CT ABDOMINAL PAIN active 65541463 SNOME D-CT ENCOUNTER FOR SCREENING FOR INFECTIONS WITH A PREDOMINANTLY SEXUAL MODE OF TRANS active 511589420 SNOMED- CT ENCOUNTER FOR SCREENING FOR RESPIRATORY TUBERCULOSIS active 148639377 SNO MED-CT LEFT LOWER QUADRANT PAIN active 81261 6002 SNOMED-CT ENCOUNTER FOR GYNECOLOGICAL EXAMINATION (GENERAL) (ROUTINE) WITHOUT ABNORMAL FIN active 23407161 SNOMED- CT Plan of Treatment No Data Found Encounters Encounter Diagnosis Start Date Code Code Sys tem Acute upper respiratory infection, unspecified 025 SNOMED-CT Personal Care Team Section Performer Name Performer Role Active Date Inactive Da YULIANA Alas PCP - Primary care physician 2022-09-10
--- OUTSIDE RECORDS SUMMARY | 2025-03-01 01:18 | XMS_ITS ---
Author Organization Unknown Address [address] [place] [phone] Phone Care Team Providers Care Chief Commercial Officer Name Role Phone ALLYSSA GREENBERG Attending Unavailable [...] PANEL - Iman ect Date/Time: 04/15/2024 11:01 [facility] ID: [id number] [address] [place], [place], [id number] LOINC: 84030-6 Test Value Unit Reference Range Code Code System Flag FASTING NO BUN 7 mg/dL L=7 H=20 3094-0 LOINC CREATININE 0.80 mg/dL L=0.52 H=1.04 2160-0 LOINC GLUCOSE 90 mg/dL L=74 H=106 2345-7 LOINC CALCIUM 9.5 mg/dL L=8.3 H=10.5 54356-9 LOINC SODIUM 139 mmol/L L=132 H=144 2951-2 LOINC POTASSIUM 3.8 mmol/L L=3.5 H=5.1 2823-3 LOINC CHLORIDE 110 mmol/L L=98 H=107 2075-0 LOINC H CO2 21.0 mmol/L L=22.0 H=30.0 2028-9 LOINC L ANION GAP 12 L=10 H=20 60915-6 LOINC BUN/CREAT 8.8 3097-3 LOINC AGE 23 18224-9 LOINC eGFR NON-AFR 96 ml/min eGFR AFR AMER 116 ml/min Social History Type Status Start Date End Date Code Code Syst em Smoking History Never smoker (Never Smoked) 728992362 SNOMED CT Sex Female Assessment You had [...] System OTHER GENERAL SYMPTOMS AND SIGNS active 723410798 SNOMED-CT ABDOMINAL PAIN active 06873790 SNOME D-CT ENCOUNTER FOR SCREENING FOR INFECTIONS WITH A PREDOMINANTLY SEXUAL MODE OF TRANS active 936021480 SNOMED- CT ENCOUNTER FOR SCREENING FOR RESPIRATORY TUBERCULOSIS active 698153522 SNO MED-CT LEFT LOWER QUADRANT PAIN active 01963 6002 SNOMED-CT ENCOUNTER FOR GYNECOLOGICAL EXAMINATION (GENERAL) (ROUTINE) WITHOUT ABNORMAL FIN active 84718751 SNOMED- CT Plan of Treatment No Data Found Encounters Encounter Diagnosis Start Date Code Code Sys tem Abnormal results of kidney function studies 04/15/2024 SNOMED-CT Personal Care Team Section Performer Name Performer Role Active Date Inactive YULIANA Garcia PCP - Primary care physician 2022-09-10
--- OUTSIDE RECORDS SUMMARY | 2025-03-01 01:19 | XMS_ITS ---
Author Organization Unknown Address [address] [place] [phone] Phone Care Team Providers Care Pea Viner Mechanic Name Role Phone BRIAN JENSENH Attending Unavailable [...] RSV PCR - Collect Date/Time: 09/29/2023 10:15 [facility] ID: [id number] [address] [place], [place], [id number] LOINC: 62170-2 Test Value Unit Reference Range Code Code System Flag SARS CoV2 PCR NEGATIVE FLU A PCR NEGATIVE FLU B PCR NEGATIVE RSV PCR NEGATIVE SEND TO [facility]? YES A Social History Type Status Start Date End Date Code Code Syst em Smoking History Never smoker (Never Smoked) 971646235 SNOMED CT Sex Female Assessment You had [...] System OTHER GENERAL SYMPTOMS AND SIGNS active 758058493 SNOMED-CT ABDOMINAL PAIN active 94041901 SNOME D-CT ENCOUNTER FOR SCREENING FOR INFECTIONS WITH A PREDOMINANTLY SEXUAL MODE OF TRANS active 263325289 SNOMED- CT ENCOUNTER FOR SCREENING FOR RESPIRATORY TUBERCULOSIS active 100867735 SNO MED-CT LEFT LOWER QUADRANT PAIN active 82611 6002 SNOMED-CT ENCOUNTER FOR GYNECOLOGICAL EXAMINATION (GENERAL) (ROUTINE) WITHOUT ABNORMAL FIN active 40776586 SNOMED- CT Plan of Treatment No Data Found Encounters Encounter Diagnosis Start Date Code Code Sys tem Nasal congestion 09/29/2023 25970707 SNOMED-CT Personal Care Team Section Performer Name Performer Role Active Date Inactive YULIANA Garcia PCP - Primary care physician 2022-09-10
[2025-03-01 01:34] VITALS: BP 117/62; PULSE 87; PULSE 89; O2SAT 98
--- NOTE | 2025-03-01 01:41 | OBADM ---
This patient, Sana Ortega, admitted to the OB room OB Post 116 for observation. Patient/family oriented to hospital policies and general routines including ID bracelet, bed and alarms, visiting hours, pain management, procedures, bathroom and other care routines, personal items, smoking policy, room service/diet, and visiting hours. Patient/Family are encouraged to report perceived risks to care and to ask questions if they do not understand what they are told or what they should do.
[2025-03-01 01:48] VITALS: BMI 34.0
[2025-03-01 02:16] LABS: Add Urine Microscopic? YES; Appearance Urine Clear (Clear); Bilirubin Urine Negative (Negative); Blood Urine Trace-intact (Negative); Color Urine Yellow (Yellow); Glucose Urine UA Negative (Negative); Ketones Urine Negative (Negative); Leukocyte Esterase Ur 1+ LEU/UL (Negative); Nitrate Urine Negative (Negative); Protein Urine Negative (Negative); Specific Grav Ur 1.015 (1.001-1.035); Urobilinogen Urine 0.2 mg/dL (<2.0); pH Urine 6.5 (5.0-9.0)
[2025-03-01 02:17] LABS: Bacteria Urine None Seen /hpf; Squamous Epithelial Cell Urine Occasional /hpf (Few); WBC Urine 0-5 /hpf (0-3)
--- NOTE | 2025-03-01 02:20 | PC.NURSE ---
RN called Dr. Cee. RN notified Dr. Cee of pts arrival to unit with complaints of contractions. MD notified of UA results, reactive FHT's, 3 contractions throughout duration pt had been on monitor and that pt was marking movement. Orders received for discharge.
--- NOTE | 2025-03-20 21:18 | P.PNOB_ITS ---
OB - Triage/Final Diagnosis Visit Information Comments/Additional reasons for admission: I have assessed the risk for this patient, Sana Ortega, and determined that she would benefit from observation care. Evaluation Laboratory results: Laboratory Tests 03/01/25 01:18 Urine Color Yellow Urine Appearance Clear Urine pH 6.5 Ur Specific [place] 1.015 Urine Protein Negative Urine Glucose (UA) Negative Urine Ketones Negative Ur Blood (Man) Trace-intact H Urine Nitrate Negative Urine Bilirubin Negative Urine Urobilinogen 0.2 Leukocyte Esterase Rfl 1+ H Urine RBC 3-5 H Urine WBC 0-5 Ur Squamous Epith Cells Occasional Urine Bacteria None seen Final Diagnosis (1) False labor: Code(s): O47.9 - False labor, unspecified Status: Acute
== END 2025-03-01 02:28 | disposition home or self-care (01) ==
PROVIDERS: Admitting Provider Obstetrics & Gynecology; Visit Provider Obstetrics & Gynecology
DX: O47.03 False labor before 37 completed weeks of gestation, third trimester (principal); Z3A.35 35 weeks gestation of pregnancy
CPT/HCPCS: 81001; 87086; G0378; G0379

== ENCOUNTER 2025-03-23 16:52 | Inpatient (IN) | payer OTHER, SELFPAY ==
[2025-03-23] VITALS (18 sets, daily range): BP systolic 104–142; BP diastolic 65–86; PULSE 79–113; TEMP 36.4–36.5; O2SAT 98–100; BMI 34.5
--- OUTSIDE RECORDS SUMMARY | 2025-03-23 16:55 | XMS_ITS ---
Author Organization Unknown Address [address] [place] [phone] Phone Care Team Providers Care Inter Fold Roll Cutter Name Role Phone ALLYSSA GREENBERG Attending Unavailable [...] DIFF - Collect Date/T car: 03/04/2024 11:10 [facility] ID: [id number] [address] [place], [place], [id number] LOINC: 68566-4 Test Value Unit Reference Range Code Code System Flag WBC 10.2 10^3uL L=4.8 H=10.8 RBC 4.45 10^6uL L=4.20 H=5.40 HEMOGLOBIN 13.2 g/dL L=12.0 H=16.0 718-7 LOINC HEMATOCRIT 39.1 VOL% L=37.0 H=47.0 4544-3 LOINC MCV 87.9 fL L=81.0 H=99.0 MCH 29.7 pg L=27.0 H=32.0 MCHC 33.8 g/dL L=32.0 H=36.0 PLATELETS 313 10^3uL L=100 H=400 11608-2 LOINC RDW 11.8 % L=11.7 H=15.5 %GRAN 62.7 % L=40.0 H=70.0 56720-6 LOINC %LYMPH 31.1 % L=20.0 H=45.0 736-9 LOINC %MONO 4.9 % L=2.0 H=10.0 11279-7 LOINC %EOS 0.7 % L=0.0 H=6.0 713-8 LOINC %BASO 0.3 % L=0.0 H=3.0 706-2 LOINC #NEUT 6.4 10^3uL L=1.9 H=7.6 96381-9 LOINC #LYMPH 3.2 10^3uL L=0.9 H=4.9 80800-9 LOINC #MONO 0.5 10^3uL L=0.1 H=0.9 95923-1 LOINC #EOS 0.1 10^3uL L=0.0 H=0.6 712-0 LOINC #BASO 0.03 10^3uL L=0.00 H=0.10 10844-9 LOINC #IM GRANS 0.0 10^3uL L=0.0 H=7.0 52375-7 LOINC %IM GRANS 0.3 % L=0.0 H=5.0 78153-4 LOINC %NRB 0.0 L=0.0 H=0.2 72100-9 LOINC #NRB 0.000 L=0.000 H=0.012 55955-1 LOINC MANUAL DIFF NOT INDICATED RBC MORPH NOT INDICATED COMPREHENSIVE METABOLIC PANE L - Collect Date/Time: 03/04/2024 11:10 [facility] ID: [id number] [address] [place], [place], [id number] LOINC: 56470-3 Test Value Unit Reference Range Code Code [...] 8-9 LOINC ANION GAP 16 L=10 H=20 47940-9 LOINC OSMOLALITY 288 mOs/kG L=280 H=296 29110-2 LOINC BUN/CREAT 11.3 3097-3 LOINC CALCIUM 9.7 mg/dL L=8.3 H=10.5 98623-8 LOINC AST 25 U/L L=15 H=46 1920-8 LOINC ALT 26 U/L L=9 H=72 1742-6 LOINC ALKALINE PHOS 58 U/L L=38 H=126 6768-6 LOINC TOTAL BILI 0.3 mg/dL L=0.2 H=1.3 1975-2 LOINC ALBUMIN 4.2 G/dL L=3.5 H=5.0 1751-7 LOINC TOTAL PROTEIN 7.6 g/L L=6.3 H=8.2 2885-2 LOINC A/G RATIO 1.2 30522-8 LOINC AGE 23 94942-7 LOINC eGFR NON-AFR 96 ml/min eGFR AFR AMER 116 ml/min TSH / REFLEX FT4 - Collect D ate/Time: 03/04/2024 11:10 [facility] ID: [id number] [address] [place], [place], [id number] LOINC: Test Value Unit Reference Range Code Code System Flag TSH 0.685 uIU/L L=0.470 H=4.680 86378-7 LOINC Social History Type Status Start Date End Date Code Code Syst em Smoking History Never smoker (Never Smoked) 578872129 SNOMED CT Sex Female Assessment You had [...] System OTHER GENERAL SYMPTOMS AND SIGNS active 886408184 SNOMED-CT ABDOMINAL PAIN active 24419746 SNOME D-CT ENCOUNTER FOR SCREENING FOR INFECTIONS WITH A PREDOMINANTLY SEXUAL MODE OF TRANS active 301093847 SNOMED- CT ENCOUNTER FOR SCREENING FOR RESPIRATORY TUBERCULOSIS active 548916276 SNO MED-CT LEFT LOWER QUADRANT PAIN active 93575 2532 SNOMED-CT ENCOUNTER FOR GYNECOLOGICAL EXAMINATION (GENERAL) (ROUTINE) WITHOUT ABNORMAL FIN active 29218591 SNOMED- CT Plan of Treatment No Data Found Encounters Encounter Diagnosis Start Date Code Code Sys tem Other fatigue 03/04/2024 SNOMED-CT Personal Care Team Section Performer Name Performer Role Active Date Inactive YULIANA Garcia PCP - Primary care physician 2022-09-10
--- OUTSIDE RECORDS SUMMARY | 2025-03-23 16:56 | XMS_ITS ---
Author Organization Unknown Address [address] [place] [phone] Phone Care Team Providers Care Emergency Registrar Name Role Phone ALLYSSA GREENBERG Attending Unavailable [...] PANEL - Iman ect Date/Time: 04/15/2024 11:01 [facility] ID: [id number] [id number] [place], [place], [id number] LOINC: 28503-8 Test Value Unit Reference Range Code Code System Flag FASTING NO BUN 7 mg/dL L=7 H=20 3094-0 LOINC CREATININE 0.80 mg/dL L=0.52 H=1.04 2160-0 LOINC GLUCOSE 90 mg/dL L=74 H=106 2345-7 LOINC CALCIUM 9.5 mg/dL L=8.3 H=10.5 56740-7 LOINC SODIUM 139 mmol/L L=132 H=144 2951-2 LOINC POTASSIUM 3.8 mmol/L L=3.5 H=5.1 2823-3 LOINC CHLORIDE 110 mmol/L L=98 H=107 2075-0 LOINC H CO2 21.0 mmol/L L=22.0 H=30.0 2028-9 LOINC L ANION GAP 12 L=10 H=20 26242-4 LOINC BUN/CREAT 8.8 3097-3 LOINC AGE 23 98715-8 LOINC eGFR NON-AFR 96 ml/min eGFR AFR AMER 116 ml/min Social History Type Status Start Date End Date Code Code Syst em Smoking History Never smoker (Never Smoked) 527386502 SNOMED CT Sex Female Assessment You had [...] System OTHER GENERAL SYMPTOMS AND SIGNS active 439524854 SNOMED-CT ABDOMINAL PAIN active 44762875 SNOME D-CT ENCOUNTER FOR SCREENING FOR INFECTIONS WITH A PREDOMINANTLY SEXUAL MODE OF TRANS active 110186692 SNOMED- CT ENCOUNTER FOR SCREENING FOR RESPIRATORY TUBERCULOSIS active 897157904 SNO MED-CT LEFT LOWER QUADRANT PAIN active 83650 6002 SNOMED-CT ENCOUNTER FOR GYNECOLOGICAL EXAMINATION (GENERAL) (ROUTINE) WITHOUT ABNORMAL FIN active 24807814 SNOMED- CT Plan of Treatment No Data Found Encounters Encounter Diagnosis Start Date Code Code Sys tem Abnormal results of kidney function studies 04/15/2024 SNOMED-CT Personal Care Team Section Performer Name Performer Role Active Date Inactive YULIANA Garcia PCP - Primary care physician 2022-09-10
--- OUTSIDE RECORDS SUMMARY | 2025-03-23 16:56 | XMS_ITS | Data Portability ---
Author Organization [facility] [place] Address [address] [place] [address] [address] [place] [address] Care Team Providers Care Manager Med Surg Name Role Phone ABHILASH PRINCE Primary Care Provider YARI SPIVEY Primary Care Provider Assessment Encounter Date Assessment Date Assessment LastModified by Organization Details LastModified Time 03/09/2025 03/09/2025 Patient is ___weeks . Discussed plan. Not available 03/09/2025 16:47:41 03/15/2025 03/15/2025 Patient is ___weeks . Discussed plan. Not available 03/15/2025 14:03:10 Plan of Treatment Reminders Order Date Submit Date Provider Last Modified By Organization Details Last Modified Time Details Appointments INDUCTION 2024 05:00P Jose D CEE MD Not available Not available Not available Lab None recorded. Referral None recorded. Procedures None recorded. Surgeries None recorded. Imaging US, obstetric , biophysic al profile 2024 025 [email or web address] [place], [address], [place], [address], 03/15/2025 21:18:15 US, doppler, umbilical artery velocimet ry 2024 025 [email or web address] [place], [address], [place], [address], 03/15/2025 21:18:15 US, obstetric , follow-up 2024 [email or web address], [address], [place], [address], 03/09/2025 22:49:41 US, obstetric , biophysic al profile 2024 025 [email or web address] [place], [address], [place], [address], 03/09/2025 22:49:41 US, doppler, umbilical artery velocimet ry 2024 025 [email or web address] [place], [address], [place], [address], 03/09/2025 22:49:41 Medication Orders None recorded. Patient TargetsNo targets recorded. Patient InstructionsNo instructions recorded. Reason for Referral None Reported. Results Created Date Observation Date Name Description Value Unit Range Abnormal Flag Note LastModifiedBy Organization Detail LastModifiedTime 03/02/2003/02/2025 CULTU RE: GROUP B STREP SCREE N, REFLE X SUSCE PTIBI LITY result report SEE RESULT S BELOW Test: Cultu re: Group B Strep , Refle x Susce ptibi lity ([facility]/ [facility] ) Speci men Sourc e: Vagin a/Rec vahe Speci men Type: Vagin al/Re ctal Speci men Date: 1703 Resul t Date: 1403 Resul t Statu s: Final resul t Abnor mal: No Resul ting Lab: [facility] [address] [facility] [address] Tel: CULTU RE ----- ----- ----- --- No Group B strep isola kalin at 2 days (yany ctive broth enhan cemen t) Not Available [facility] (Lab) [address] [facility], [place], [address], 03/05/2025 15:06:33 02/10/20 25 02/09/2025 US, obste tric, follo w-up No observ ation record ed. [address], [place], [address], 02/14/2025 18:39:17 02/10/20 25 02/09/2025 US, obste tric, follo w-up No observ ation record ed. [email or web address] [place] [address], [place], [address], 02/09/2025 13:50:31 02/10/20 25 02/09/2025 US, obste tric, bioph ysica l profi le No observ ation record ed. [email or web address] [place] [address], [place], [address], 02/09/2025 13:50:47 02/10/20 25 02/09/2025 US, doppl er, umbil ical arter y veloc imetr y No observ ation record ed. [email or web address] [place] [address], [place], [address], 02/09/2025 13:50:58 02/10/20 25 02/09/2025 non-s tress test No observ ation record ed. [email or web address] [place] [address], [place], [address], 02/09/2025 16:21:02 02/15/20 25 02/14/2025 US, obste tric, bioph ysica l profi le + non-s tress test No observ ation record ed. [facility] [address] [place], [address], 02/15/2025 10:27:38 02/15/20 25 02/14/2025 US, obste tric, follo w-up No observ ation record ed. [facility] [address], [place], [address], 02/21/2025 12:44:18 03/09/20 25 03/09/2025 US, obste tric, follo w-up No observ ation record ed. [email or web address] [address], [place], [address], 03/15/2025 06:06:55 03/09/20 25 03/09/2025 US, obste tric, follo w-up No observ ation record ed. [facility] [address], [place], [address], 03/09/2025 17:10:16 03/09/20 25 03/09/2025 US, obste tric, bioph ysica l profi le No observ ation record ed. [facility] [address], [place], [address], 03/09/2025 17:10:25 03/09/20 25 03/09/2025 US, doppl er, umbil ical arter y veloc imetr y No observ ation record ed. [facility] [address], [place], [address], 03/09/2025 17:10:35 03/15/20 25 03/15/2025 US, obste tric, bioph ysica l profi le No observ ation record ed. [email or web address] [place] [address], [place], [address], 03/15/2025 18:14:28 03/15/2003/15/2025 US, doppl er, umbil ical arter y veloc imetr y No observ ation record ed. [email or web address] [place] [address], [place], [address], 03/15/2025 18:14:39 03/15/20 25 03/15/2025 US, obste tric, bioph ysica l profi le No observ ation record ed. [email or web address] [address], [place], [address], 03/15/2025 12:40:27 Result Notes None recorded. Problems Name Problem SNOMED Code Status Onset Date Resolution Date Notes Provider Name and Address Organization Details Recorded Time Mixed anxiety and depressiv e disorder 470406540 Active 2022 Abby Cruz MD [address], [place], [address], [facility] 3 15:27:32 Diverticu litis 076109952 Active 2022 Abby Cruz MD [address], [place], [address], [facility] 3 15:27:39 34188120 Active 2023 Rosanna aviles, [facility] 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 5 18:38:15 Disorder of placenta 771289288 Active bilobed Luisito Cee MD [address], [place], [address], [facility] 5 12:51:07 Delayed growth and developme nt 488231275 Active 2024 Low abdominal circumfer ence, normal at [facility] Luisito Cee MD [address], [place], [address], [facility] 5 17:52:04 Problem Notes None recorded. Procedures Surgical History Date Name Laterality Status Provider Name and Address Organization Details Recorded Time 06/02/2023 Date of Last Pap Smear completed Rosanna Hobson [place] - [facility] 09/23/2024 12:46:58 Imaging Results Imaging Date Name Status LastModified by [place] [facility] Details LastModified Time 02/09/2025 US, obstetric, follow-up completed [email or web address] [address], [place], [address], 02/14/2025 18:39:17 02/09/2025 US, obstetric, follow-up completed [email or web address] [place] [address], [place], [address], 02/09/2025 13:50:31 02/09/2025 US, obstetric, biophysical profile completed [email or web address] [place] [address], [place], [address], 02/09/2025 13:50:47 02/09/2025 US, doppler, umbilical artery velocimetry completed [email or web address] [place] [address], [place], [address], 02/09/2025 13:50:58 02/09/2025 non-stress test completed [email or web address] [place] [address], [place], [address], 02/09/2025 16:21:02 02/14/2025 US, obstetric, biophysical profile + non-stress test completed [email or web address] [facility] [address], [place], [address], 02/15/2025 10:27:38 02/14/2025 US, obstetric, follow-up completed [facility] [address], [place], [address], 02/21/2025 12:44:18 03/09/2025 US, obstetric, follow-up completed [address], [place], [address], 03/15/2025 06:06:55 03/09/2025 US, obstetric, follow-up completed [place] [address], [place], [address], 03/09/2025 17:10:16 03/09/2025 US, obstetric, biophysical profile completed [facility] [address], [place], [address], 03/09/2025 17:10:25 03/09/2025 US, doppler, umbilical artery velocimetry completed [facility] [address], [place], [address], 03/09/2025 17:10:35 03/15/2025 US, obstetric, biophysical profile completed [place] [address], [place], [address], 03/15/2025 18:14:28 03/15/2025 US, doppler, umbilical artery velocimetry completed [place] [address], [place], [address], 03/15/2025 18:14:39 03/15/2025 US, obstetric, biophysical profile completed [email or web address] [address], [place], [address], 03/15/2025 12:40:27 Procedure Notes None recorded. Medical Equipment None [...] 1 tablet twice a day by oral route as directed. 2024 active Not Available Not Available Not [...] Not Available Vitals Date Recorded Body weight Systolic blood pressure Diastolic blood pressure Provider Name and Address Organization Details Last Updated DateTime 03/09/2025 22292.1045 2 g 119 mm[Hg] 80 mm[Hg] Rosanna Hobson [place] - [facility] 03/09/2025 16:49:12 Date Recorded Body height Body mass index (BMI) Body weight Systolic blood pressure Diastolic blood pressure Provider Name and Address Organization Details Last Updated DateTime 03/15/2025 157.48 cm 36 kg/m2 76897.7 g 134 mm[Hg] 86 mm[Hg] Rosanna Joce [facility] 14:03:46 Social History Question Answer Notes LastModified by Organizat ion Details LastModified Time Tobacco Smoking Status Never Smoker Manuela Townsend stefan, [facility] 12/15/2022 16:18:11 Do You Have An Advance Directive? No [email or web address] Information n ot available 01/25/2025 Are You Blind Or Do You Have Difficulty Seeing? No [email or web address] Information n ot available 01/25/2025 What Is Your Level Of Caffeine Consumption? Moderate [email or web address] Information not available 01/25/2025 How Much Tobacco Do You Chew? None [email or web address] Information not available 01/25/2025 In The 14 Days Before Symptom Onset, Have You Had Close Contact With A Laboratory-confirm ed COVID-19 While That Case Was Ill? No [email or web address] Information n ot available 01/25/2025 In The 14 Days Before Symptom Onset, Have You Had Close Contact With A Person Who Is Under Investigation For COVID-19 While That Person Was Ill? No [email or web address] Information not available 01/25/2025 Have You Been To An Area Known To Be High Risk For COVID-19? No Information not available 01/25/2025 Are You Deaf Or Do You Have Serious Difficulty Hearing? No [email or web address] Information not available 01/25/2025 What Type Of Diet Are You Following? REGULAR [email or web address] Information n ot available 01/25/2025 What Is The Highest Grade Or Level Of School You Have Completed Or The Highest Degree You Have Received? TB50273-1 [email or web address] Information not available 01/25/2025 Are There Any Guns Present In Your Home? No [email or web address] Information not available 01/25/2025 Do You Use Protection During Sex? No Information not available 01/25/2025 Do You Use Your Seat Belt Or Car Seat Routinely? Yes [email or web address] Information not available 01/25/2025 Are You Sexually Active? Yes [email or web address] Information not available 12/15/2022 Do You Have Smoke And Carbon Monoxide Detectors In Your Home? Yes [email or web address] Information not available 01/25/2025 At What Age Did You Start Smoking Tobacco? 18 [email or web address] Information not available 01/25/2025 How Much Tobacco Do You Smoke? No [email or web address] Information not available 01/25/2025 Do You Use Sunscreen Routinely? Yes [email or web address] Information not available 01/25/2025 How Many Years Have You Smoked Tobacco? 6 [email or web address] Information not available 01/25/2025 Have You Used IV Drugs? No [email or web address] Information not available 01/25/2025 Do You Have Difficulty Walking Or Climbing Stairs? No [email or web address] Information not available 12/15/2022 Sex: Unknown Functional Status Question Answer Note LastModified by Organizat ion Details LastModified Time Do you use any illicit or recreational drugs? No [email or web address] Information not available 01/25/2025 Do you or have you ever used any other forms of tobacco or nicotine? Yes [email or web address] Information not available 12/15/2022 What is your level of alcohol consumption? None [email or web address] Information not available 01/25/2025 Are you currently employed? No [email or web address] Information not available 12/15/2022 Are you able to walk? YESWOREST [email or web address] Information not available 01/25/2025 Are you able to care for yourself? 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 No [email or web address] Information not available 12/15/2022 Do you or have you ever used e-cigarettes or vape? Current user of electronic cigarettes [email or web address] Information not available 12/15/2022 What is your exercise level? Moderate Information not available 01/25/2025 Mental Status Question Answer Note LastModified by Organization D etails LastModified Time Do you feel stressed (tense, restless, nervous, or anxious, or unable to sleep at night)? [id number] [email or web address] Information not available 01/25/2025 Family History Relationship Description Onset Age of this Age Resolved Age Notes LastModified by Organization Details LastModified Time Maternal Grandmother Diabetes mellitus Not available 10/21 16:07:37 Maternal Grandmother Lymphosarcom a [email or web address] Not available 2024 14:27:42 Maternal Grandmother Diabetes mellitus [email or web address] Not available 2024 13:29:54 Maternal Grandfather Diabetes mellitus [email or web address] Not available 10/21 16:07:37 Maternal Grandfather Diabetes mellitus [email or web address] Not available 2024 13:29:54 Mother Diabetes mellitus [email or web address] Not available 10/21 16:07:37 Mother Diabetes mellitus [email or web address] Not available 2024 13:29:54 Medical History Condition Response Anxiety Disorder Y [...] SNOMED-CT Code Diagnosis ICD10 Code Diagnosis Note [id number] CELSA Ferreira [place] [address] [address] 02/27/2022 11:52:20 02/27/2022 13:09:02 Contraception care management 750509735 Z30.9 Venereal d isease screening 748302115 Z11.3 Gynecologi c examination 69954920 Z01.419 Take Calcium with Vitamin D 1200mg [...] med check Sexually t ransmitted infectious disease 0469647 A61 [id number] Luisito Cee MD [place] [address],[place] [address] 12/15/2022 16:18:02 12/15/2022 17:10:47 Pain in pelvis 81843959 R10.2 [id number] Abby Cruz MD [place] [address],[place] [address] 12/22/2022 15:21:07 12/23/2022 12:38:05 Dysmenorrhea 463905256 N94.6 [id number] Luisito Cee MD [place] [address],[place] [address] 08/26/2024 12:12:22 08/29/2024 10:14:13 [id number] SADIE RABAGO MD [place] [address],[place] [address] 08/26/2024 13:47:06 08/26/2024 14:41:23 test positive 831493483 Z32.01 1. Exam today within normal limits.2. [...] at 10 weeks, orders given today. Migraine 64700999 G43.90 9 - previously on topiramate - daily mild headaches, somewhat relieved with tylenol- discussed caffeine and B2, will send referral to MFM if still unrelieved screening 2437 62693 Z36.89 [id number] Luisito Cee MD [place] [address],[place] [address] 09/23/2024 11:58:30 09/23/2024 12:37:15 screening 282419114 Z36.82 Z3A.13 [id number] MD Basil DAVILA [address],[place] [address] 09/23/2024 11:58:50 09/23/2024 14:15:19 Routine care 973371126 Z34.91 [id number] MD Basil DAVILA [address],[place] [address] 10/21/2024 15:53:27 10/21/2024 16:32:34 Gestation period, 17 weeks 21898800 Z3A.17 - continue PNV Mixed anxi ety and depressive disorder 064021961 F41.8 - mood stable on fluoxetine 20mg [id number] Luisito Cee MD [place] [address],[place] [address] 11/14/2024 14:50:43 11/14/2024 16:35:10 screening for malformation 040208397 Z36.3 Z3A.20 [id number] SADIE RABAGO MD [place] [address] [address] 11/14/2024 14:51:11 11/16/2024 03:00:30 Exposure to sexually transmissible disorder 122634093 Z20.2 - partner recently diagnosed with gHSV- lesion found last week, swab sent off lesion today- will treat then start suppressio n if positive Gestation period, 20 weeks 00951279 Z3A.20 - continue PNV- anatomy incomplete , will repeat in 4 weeks [id number] Luisito Cee MD [place] [address],[place] [address] 12/13/2024 14:31:26 12/13/2024 16:06:38 screening 306814749 Z36.2 Z3A.24 [id number] SADIE RABAGO MD [place] [address],[place] [address] 12/13/2024 14:31:43 12/13/2024 16:01:28 Genital herpes simplex 05749328 A60.9 - confirmed at 20 weeks- plan for 36 week suppressiv e therapy Disorder of placenta 125 448867 O43.90 - bilobed placenta- EFW 24% at 24 weeks- repeat growth US at 32 weeks Gestation period, 24 weeks 916282732 Z3A.24 - continue pNV [id number] Luisito Cee MD [place] [address],[place] [address] 01/10/2025 10:54:57 01/10/2025 11:56:32 screening 568330980 Z36.2 O43.102 Z3A.28 [id number] SADIE RABAGO MD [place] [address] [address] 01/10/2025 10:55:25 01/10/2025 12:49:46 Disorder of placenta 590088162 O43.90 - bilobed placenta- EFW 24% at 24 weeks, 19% at 28 weeks- repeat growth US at 32 weeks Gestation period, 28 weeks 09238308 Z3A.28 - continue PNV- GCT and labs collected today [id number] SADIE RABAGO MD [place] [address],[place] [address] 01/25/2025 11:56:16 01/25/2025 12:40:31 Disorder of placenta 938005353 O43.90 - bilobed placenta- EFW 24% at 24 weeks, 19% at 28 weeks- repeat growth US at 32 weeks Gestation period, 30 weeks 81465976 Z3A.30 - continue PNV [id number] MD Basil Fernandez [address],[place] [address] 02/09/2025 11:53:36 02/09/2025 12:58:20 Small for gestational age fetus 339100609 O36.5930 Z3A.33 [id number] Luisito Cee MD [place] [address] [address] 02/09/2025 11:53:50 02/09/2025 12:58:06 Routine care 644873003 Z34.80 [id number] MD Basil Fernandez [address],[place] [address] 02/09/2025 14:46:47 02/09/2025 16:40:15 growth restriction 46746146 O36.5999 [id number] MD Basil Fernandez [address] [address] 02/14/2025 12:47:53 02/14/2025 14:19:52 Routine care 568753477 Z34.80 [id number] Luisito Cee MD [place] [address] [address] 03/02/2025 16:28:22 03/03/2025 07:39:53 Third trimester 37339888 Z34.03 [id number] Luisito Cee MD [place] [address] [address] 03/09/2025 15:23:15 03/09/2025 16:30:14 Poor growth affecting management 391346378 O36.5990 Z3A.37 [id number] Luisito Cee MD [place] [address] [address] 03/09/2025 15:23:28 03/09/2025 17:37:11 Third trimester 90925678 Z34.03 [id number] Luisito Cee MD [place] [address] [address] 03/15/2025 11:52:49 03/15/2025 12:33:15 Poor growth affecting management 678443473 O36.5990 Z3A.37 [id number] Luisito Cee MD [place] [address] [address] 03/15/2025 13:29:50 03/15/2025 14:30:24 Third trimester 93944738 Z34.03 Health Concerns Section Related Observation LastModified by Organization Detai ls LastModified Time None Recorded Concern Status LastModified by Organization Details LastModified Time None Recorded Advance Directives Directive N: Payers Encounter Date Sequence Insurance Name Policy Number Policy Ornelas Covered Member ID Ornelas Member ID Guarantor Name 03/09/2025 1 [facility] ON OR AFTER 05/02/21 (MEDICAID REPLACEMENT - HMO) Sana Ortega [id number] Sana Ortega 03/09/2025 1 [facility] - DOS ON OR AFTER 21 (MEDICAID REPLACEMENT - HMO) Sana Ortega [id number] Sana Ortega 03/15/2025 1 [facility] ON OR AFTER 05/02/21 (MEDICAID REPLACEMENT - HMO) Sana Ortega [id number] Sana Ortega 03/15/2025 1 [facility] ON OR AFTER 05/02/21 (MEDICAID REPLACEMENT - HMO) Sana Ortega [id number] Sana Ortega OBGyn Episode Ob Episode Information Episode Created Date Number of Fetuses Patient Bloodtype Patient rh Status Prepregnancy Weight lbs Domestic Partner Domestic Partner Phone Father Name Pilot Teacher Status 09/23/20 24 1 O Positive Tarun Estrada nd OPEN Fetus Data First Name Last Name Admitted to NICU Weight (g) Sex Living Outcome Pediatric Complications Fetus ID Race Codes Race Delivery Type [id number] Problems Problem Notes CYTOTEC EVENING OF h EFW 14% AC 4% [facility] faxed pt sched 02/14 Level II us - WNL EFW and AC improved no antental testing indicated per [facility] sched for rpt growth 03/10 0945 Problem Name Start Date End Date Resolution Snomed Code Not e Disorder of placenta 284240163 bilobed Herpes simplex 95530108 HSV 2 Valtex @ 36wks last outbreak 27wks Delayed growth and development 03/02/2025 702688522 Low abdominal circumference, normal at [facility] Leland Calculation Initial Leland Date Initial Exam [...] Date Ultra Sound Latest Days Gestation 0 [email or web address] 03/06/2025 03/30/20 25 0 Pre-brennan Flowsheet Flowsheet Date 09/23/2024 Curry Score Blood Edema Fundus Height Fundus Units Glucose Ketones Leukocytes Nitrite Labor Signs Protein Cervic Dilation Cervic Effacement Cervic Station Type Weight in lbs Pre/Post Dialysis Refused Weight 171.875464723282 BP Diastolic BP Location Tested BP Systolic [...] Type Weight in lbs Pre/Post Dialysis Refused 171.058353147428 BP Diastolic BP Location Tested BP Systolic [...] Type Weight in lbs Pre/Post Dialysis Refused 171.733356676693 BP Diastolic BP Location Tested BP Systolic [...] Present Fetus Movement Comments Flowsheet Date 12/13/2024 Curry Score Blood Edema Fundus Height Fundus Units Glucose Ketones Leukocytes Nitrite Labor Signs Protein Cervic Dilation Cervic Effacement Cervic Station Type Weight in lbs Pre/Post Dialysis Refused 181.795270383638 BP Diastolic BP Location Tested BP Systolic [...] labs for next visit. RTC 4 weeks. Flowsheet Date 01/10/2025 Curry Score Blood Edema Fundus Height Fundus Units Glucose Ketones Leukocytes Nitrite Labor Signs Protein Cervic Dilation Cervic Effacement Cervic Station Type Weight in lbs Pre/Post Dialysis Refused BP Diastolic BP Location Tested BP Systolic BP Type Fetus Heart Rate Present Fetus Movement Comments Flowsheet Date 01/10/2025 Curry Score Blood Edema Fundus Height Fundus Units Glucose Ketones Leukocytes Nitrite Labor Signs Protein Cervic Dilation Cervic Effacement Cervic Station neg none Type Weight in lbs Pre/Post Dialysis Refused Weight 186.608958888305 BP Diastolic BP Location Tested BP Systolic BP Type 87 R arm 128 sitting Fetus Heart Rate Present A Present Fetus Movement A Yes Comments Good movement. No cram ping or bleeding. Having some nerve pain. EFW 19%, AC 11%. Will repeat at 32 weeks for bilobed placenta. GCT and labs today. RTC 2 weeks. Flowsheet Date 01/25/2025 Curry Score Blood Edema Fundus Height Fundus Units Glucose Ketones Leukocytes Nitrite Labor Signs Protein Cervic Dilation Cervic Effacement Cervic Station neg trace Type Weight in lbs Pre/Post Dialysis Refused Weight 188.029238579468 BP Diastolic BP Location Tested BP Systolic BP Type 78 L arm 125 sitting Fetus Heart Rate Present A 145 Fetus Movement A Yes Comments Good movement. No blee ding. Irregular cramping. Having some swelling in her hands and feets. GCT and labs normal last visit. Growth US next visit for bilobed placenta. RTC 2 weeks. Flowsheet Date 02/09/2025 Curry Score Blood Edema Fundus Height Fundus Units Glucose Ketones Leukocytes Nitrite Labor Signs Protein Cervic Dilation Cervic Effacement Cervic Station Type Weight in lbs Pre/Post Dialysis Refused BP Diastolic BP Location Tested BP Systolic BP Type Fetus Heart Rate Present Fetus Movement Comments Flowsheet Date 02/09/2025 Curry Score Blood Edema Fundus Height Fundus Units Glucose Ketones Leukocytes Nitrite Labor Signs Protein Cervic Dilation Cervic Effacement Cervic Station Type Weight in lbs Pre/Post Dialysis Refused Weight 191.784011735448 BP Diastolic BP Location Tested BP Systolic BP Type 86 L arm 136 sitting Fetus Heart Rate Present A 145 Fetus Movement A Yes Comments Discussed growth concerns, n ormal testing today, normal SD ratio, BPP, NST - continue testing, MFM consult. Flowsheet Date 02/09/2025 Curry Score Blood Edema Fundus Height Fundus Units Glucose Ketones Leukocytes Nitrite Labor Signs Protein Cervic Dilation Cervic Effacement Cervic Station Type Weight in lbs Pre/Post Dialysis Refused Weight 191.407026210892 BP Diastolic BP Location Tested BP Systolic BP Type 86 L arm 136 Fetus Heart Rate Present Fetus Movement Comments Flowsheet Date 02/14/2025 Curry Score Blood Edema Fundus Height Fundus Units Glucose Ketones Leukocytes Nitrite Labor Signs Protein Cervic Dilation Cervic Effacement Cervic Station Type Weight in lbs Pre/Post Dialysis Refused 195.972535922975 BP Diastolic BP Location Tested BP Systolic BP Type 83 L arm 130 sitting Fetus Heart Rate Present A 142 Present Fetus Movement A Yes Comments no complaints, no problems, routine care, no contractions, no vaginal bleeding, no loss of fluid, no cramping normal growth on MFM ultrasound. Flowsheet Date 03/02/2025 Curry Score Blood Edema Fundus Height Fundus Units Glucose Ketones Leukocytes Nitrite Labor Signs Protein Cervic Dilation Cervic Effacement Cervic Station 36 cm 1cm 50% -3 Type Weight in lbs Pre/Post Dialysis Refused Weight 196.371214002642 BP Diastolic BP Location Tested BP Systolic BP Type 84 L arm 133 sitting Fetus Heart Rate Present A 147 Present Fetus Movement A Yes Comments no complaints, no problems, routine care, no contractions, no vaginal bleeding, no loss of fluid, no cramping Flowsheet Date 03/09/2025 Curry Score Blood Edema Fundus Height Fundus Units Glucose Ketones Leukocytes Nitrite Labor Signs Protein Cervic Dilation Cervic Effacement Cervic Station Type Weight in lbs Pre/Post Dialysis Refused BP Diastolic BP Location Tested BP Systolic BP Type Fetus Heart Rate Present Fetus Movement Comments Flowsheet Date 03/09/2025 Curry Score Blood Edema Fundus Height Fundus Units Glucose Ketones Leukocytes Nitrite Labor Signs Protein Cervic Dilation Cervic Effacement Cervic Station Type Weight in lbs Pre/Post Dialysis Refused 196.029436121161 BP Diastolic BP Location Tested BP Systolic BP Type 80 L arm 119 sitting Fetus Heart Rate Present Fetus Movement A Yes Comments PROFOUND DISCOMFORT AND PELV IC PRESSURE, INTENSE FATIGUE. NO SHORTNESS OF BREATH. Normal SD ratio and BPP, small abdominal circumference again, it was normal at [facility]. Flowsheet Date 03/15/2025 Curry Score Blood Edema Fundus Height Fundus Units Glucose Ketones Leukocytes Nitrite Labor Signs Protein Cervic Dilation Cervic Effacement Cervic Station Type Weight in lbs Pre/Post Dialysis Refused BP Diastolic BP Location Tested BP Systolic BP Type Fetus Heart Rate Present Fetus Movement Comments Flowsheet Date 03/15/2025 Curry Score Blood Edema Fundus Height Fundus Units Glucose Ketones Leukocytes Nitrite Labor Signs Protein Cervic Dilation Cervic Effacement Cervic Station Type Weight in lbs Pre/Post Dialysis Refused Weight 197.928371994751 BP Diastolic BP Location Tested BP Systolic BP Type 86 L arm 134 sitting Fetus Heart Rate Present Fetus Movement A Yes Comments [place] EVENING OF genesis ent does not want to do BPP next week on Thursday, she wants to do it the day of the induction, she she had just come for induction. She travels over an hour.no complaints, no problems, routine care, no contractions, no vaginal bleeding, no loss of fluid, no cramping Flowsheet Date 03/23/2025 Curry Score Blood Edema Fundus Height Fundus Units Glucose Ketones Leukocytes Nitrite Labor Signs Protein Cervic Dilation Cervic Effacement Cervic Station Type Weight in lbs Pre/Post Dialysis Refused BP Diastolic BP Location Tested BP Systolic BP Type Fetus Heart Rate Present Fetus Movement Comments Menstrual History Last Menstrual Date Menses Monthly [...]
--- OUTSIDE RECORDS SUMMARY | 2025-03-23 16:56 | XMS_ITS ---
Author Organization Unknown Address [address] [place] [address] [phone] Phone Care Team Providers Care Chemical Lab Supervisor Name Role Phone BRAVO MARKEL Attending Unavailable [...] SERUM - Colle ct Date/Time: 01/13/2024 09:11 [facility] ID: [id number] [address] [place], [place], [phone] LOINC: Test Value Unit Reference Range Code Code System Flag SERUM PREG NEGATIVE Social History Type Status Start Date End Date Code Code Syst em Smoking History Never smoker (Never Smoked) 463280998 SNOMED CT Sex Female Assessment You had [...] System OTHER GENERAL SYMPTOMS AND SIGNS active 338216759 SNOMED-CT ABDOMINAL PAIN active 99330150 SNOME D-CT ENCOUNTER FOR SCREENING FOR INFECTIONS WITH A PREDOMINANTLY SEXUAL MODE OF TRANS active 589135916 SNOMED- CT ENCOUNTER FOR SCREENING FOR RESPIRATORY TUBERCULOSIS active 920628599 SNO MED-CT LEFT LOWER QUADRANT PAIN active 75331 6002 SNOMED-CT ENCOUNTER FOR GYNECOLOGICAL EXAMINATION (GENERAL) (ROUTINE) WITHOUT ABNORMAL FIN active 01152962 SNOMED- CT Plan of Treatment No Data Found Encounters Encounter Diagnosis Start Date Code Code Sys tem Excessive and frequent menstruation with regular cycle 01/13/2024 SNOMED-CT Personal Care Team Section Performer Name Performer Role Active Date Inactive YULIANA Garcia PCP - Primary care physician 2022-09-10
--- OUTSIDE RECORDS SUMMARY | 2025-03-23 16:56 | XMS_ITS ---
Author Organization Unknown Address [address] [place] [address] [phone] Phone Care Team Providers Care Fluid Pump Operator Name Role Phone JOSE MARTINEZ Attending [...] RSV PCR - Collect Date/Time: 11/24/2024 12:17 [facility] ID: [id number] [address] [place], [place], [id number] LOINC: 35261-1 Test Value Unit Reference Range Code Code System Flag SARS CoV2 PCR NEGATIVE FLU A PCR NEGATIVE FLU B PCR NEGATIVE RSV PCR NEGATIVE SEND TO [facility]? NO Social History Type Status Start Date End Date Code Code Syst em Smoking History Never smoker (Never Smoked) 277002534 SNOMED CT Sex Female Assessment You had [...] System OTHER GENERAL SYMPTOMS AND SIGNS active 565519984 SNOMED-CT ABDOMINAL PAIN active 95579849 SNOME D-CT ENCOUNTER FOR SCREENING FOR INFECTIONS WITH A PREDOMINANTLY SEXUAL MODE OF TRANS active 937785640 SNOMED- CT ENCOUNTER FOR SCREENING FOR RESPIRATORY TUBERCULOSIS active 953070614 SNO MED-CT LEFT LOWER QUADRANT PAIN active 17074 6002 SNOMED-CT ENCOUNTER FOR GYNECOLOGICAL EXAMINATION (GENERAL) (ROUTINE) WITHOUT ABNORMAL FIN active 97715900 SNOMED- CT Plan of Treatment No Data Found Encounters Encounter Diagnosis Start Date Code Code Sys tem Acute upper respiratory infection, unspecified 025 SNOMED-CT Personal Care Team Section Performer Name Performer Role Active Date Inactive Da YULIANA Alas PCP - Primary care physician 2022-09-10
--- OUTSIDE RECORDS SUMMARY | 2025-03-23 16:56 | XMS_ITS ---
Author Organization Unknown Address [address] [place] [address] [phone] Phone Care Team Providers Care Middle School Tutor Name Role Phone ALLYSSA GREENBERG Attending Unavailable [...] HCG-QUANT - Collect Bertram e/Time: 04/29/2024 14:20 [facility] ID: [id number] [address] [place], [place], [id number] LOINC: 86906-5 Test Value Unit Reference Range Code Code System Flag BETA HCG-QUANT < 2.39 mIU/mL L=0.00 H=6.00 68863-6 LOINC Social History Type Status Start Date End Date Code Code Syst em Smoking History Never smoker (Never Smoked) 582673469 SNOMED CT Sex Female Assessment You had [...] System OTHER GENERAL SYMPTOMS AND SIGNS active 381646684 SNOMED-CT ABDOMINAL PAIN active 75234772 SNOME D-CT ENCOUNTER FOR SCREENING FOR INFECTIONS WITH A PREDOMINANTLY SEXUAL MODE OF TRANS active 844203181 SNOMED- CT ENCOUNTER FOR SCREENING FOR RESPIRATORY TUBERCULOSIS active 759632425 SNO MED-CT LEFT LOWER QUADRANT PAIN active 63819 6002 SNOMED-CT ENCOUNTER FOR GYNECOLOGICAL EXAMINATION (GENERAL) (ROUTINE) WITHOUT ABNORMAL FIN active 53790587 SNOMED- CT Plan of Treatment No Data Found Encounters Encounter Diagnosis Start Date Code Code Sys tem test positive 04/29/2024 738627107 SN ED-CT Personal Care Team Section Performer Name Performer Role Active Date Inactive YULIANA Garcia PCP - Primary care physician 2022-09-10
--- OUTSIDE RECORDS SUMMARY | 2025-03-23 16:56 | XMS_ITS ---
Author Organization Unknown Address [address] [place] [address] [phone] Phone Care Team Providers Care Vp Genetic Name Role Phone BRIAN JENSENH Attending Unavailable [...] RSV PCR - Collect Date/Time: 10/21/2023 14:45 [facility] ID: [id number] [address] [place], [place], [phone] LOINC: 19876-9 Test Value Unit Reference Range Code Code System Flag SARS CoV2 PCR NEGATIVE FLU A PCR NEGATIVE FLU B PCR NEGATIVE RSV PCR NEGATIVE SEND TO [facility]? YES A Social History Type Status Start Date End Date Code Code Syst em Smoking History Never smoker (Never Smoked) 810094864 SNOMED CT Sex Female Assessment You had [...] System OTHER GENERAL SYMPTOMS AND SIGNS active 005594260 SNOMED-CT ABDOMINAL PAIN active 80695689 SNOME D-CT ENCOUNTER FOR SCREENING FOR INFECTIONS WITH A PREDOMINANTLY SEXUAL MODE OF TRANS active 958277509 SNOMED- CT ENCOUNTER FOR SCREENING FOR RESPIRATORY TUBERCULOSIS active 659116040 SNO MED-CT LEFT LOWER QUADRANT PAIN active 18727 6002 SNOMED-CT ENCOUNTER FOR GYNECOLOGICAL EXAMINATION (GENERAL) (ROUTINE) WITHOUT ABNORMAL FIN active 62629366 SNOMED- CT Plan of Treatment No Data Found Encounters Encounter Diagnosis Start Date Code Code Sys tem Other general symptoms and signs 10/21/2023 SNOMED-CT Personal Care Team Section Performer Name Performer Role Active Date Inactive YULIANA Garcia PCP - Primary care physician 2022-09-10
--- OUTSIDE RECORDS SUMMARY | 2025-03-23 16:57 | XMS_ITS ---
Author Organization Unknown Address [address] [place] [address] [phone] Phone Care Team Providers Care Infantry Assaultman Name Role Phone SCOOBY MONTOYA Attending Unavailable [...] HCG-QUANT - Collect Bertram e/Time: 07/28/2024 08:44 [facility] ID: [id number] [address] [place], [place], [id number] LOINC: 94138-9 Test Value Unit Reference Range Code Code System Flag BETA HCG-QUANT 8219.20 mIU/mL L=0.00 H=6.00 19533-1 LOINC H Social History Type Status Start Date End Date Code Code Syst em Smoking History Never smoker (Never Smoked) 985301627 SNOMED CT Sex Female Assessment You had [...] System OTHER GENERAL SYMPTOMS AND SIGNS active 449659119 SNOMED-CT ABDOMINAL PAIN active 55623933 SNOME D-CT ENCOUNTER FOR SCREENING FOR INFECTIONS WITH A PREDOMINANTLY SEXUAL MODE OF TRANS active 152210199 SNOMED- CT ENCOUNTER FOR SCREENING FOR RESPIRATORY TUBERCULOSIS active 578968472 SNO MED-CT LEFT LOWER QUADRANT PAIN active 90692 6002 SNOMED-CT ENCOUNTER FOR GYNECOLOGICAL EXAMINATION (GENERAL) (ROUTINE) WITHOUT ABNORMAL FIN active 62216927 SNOMED- CT Plan of Treatment No Data Found Encounters Encounter Diagnosis Start Date Code Code Sys tem Encounter for test, result positive 07/28/20 SNOMED-CT Personal Care Team Section Performer Name Performer Role Active Date Inactive YULIANA Garcia PCP - Primary care physician 2022-09-10
--- OUTSIDE RECORDS SUMMARY | 2025-03-23 16:57 | XMS_ITS | Clinical Summary ---
Author Organization [facility] Address [address] [place] [address] Care Team Providers Care Saute Chef Name Role Phone Unavailable Primary Care Provider Unavailabl e Source Comments [facility],non-owned Affiliates and Associated Physician Practices is amultiple site organization consisting of ambulatory clinics and hospital sitesin [place], [place], [place] and [place]. This disclosure is being madepursuant to the Care Everywhere program and may not contain all information available regarding this patient. Last updated 18.[facility] Allergies No known active allergies Active Problems Problem Noted Date Diagnosed Date SGA (small for gestational a ge), , affecting care of mother, antepartum, third trimester, fetus 1 02/13/2025 Estimated Date of Delivery Comme nts Yes 03/30/2025 Based on last me nstrual period of 06/23/2024 Encounters Date Type Department Care Team Description 02/14/2025 9:45 AM CDT - 02/14/2025 11:59 PM CDT Hospital Encounter [facility] Women's Health Maternal & Care [address] [place] [phone] Antwon Romero MD Discharge Disposition: Home [...] Orientation Not on file Plan of Treatment Health Maintenance Due Date [...] 5 lb 0 oz EFW by Hadlock (ETD-NI-CG-FL) appropriate Growth Overview Exam date [place] BPD [...] view. RVOT view. LVOT view. 3-vessel view. 9-bghrra-zvrzeid view. Situs. Bicaval view. Ductal arch view. [...] to complete anatomic survey Coding ====== Procedures 82127: US Preg Uterus Detailed [place] PACS Anatomical Region Laterality Modality Other 02/14/2025 9:46 AM CDT R Willy Cee MD [facility] ORDERABLES Edited Result - Final from Last 3 Months Insurance
--- OUTSIDE RECORDS SUMMARY | 2025-03-23 16:57 | XMS_ITS ---
Author Organization Unknown Address [address] [place] [address] [phone] Phone Care Team Providers Care Barrel Lathe Operator Inside Name Role Phone BRIAN JENSENH Attending Unavailable [...] RSV PCR - Collect Date/Time: 09/29/2023 10:15 [facility] ID: [id number] [address] [place], [place], [id number] LOINC: 45072-8 Test Value Unit Reference Range Code Code System Flag SARS CoV2 PCR NEGATIVE FLU A PCR NEGATIVE FLU B PCR NEGATIVE RSV PCR NEGATIVE SEND TO [facility]? YES A Social History Type Status Start Date End Date Code Code Syst em Smoking History Never smoker (Never Smoked) 612318383 SNOMED CT Sex Female Assessment You had [...] System OTHER GENERAL SYMPTOMS AND SIGNS active 092912558 SNOMED-CT ABDOMINAL PAIN active 82233143 SNOME D-CT ENCOUNTER FOR SCREENING FOR INFECTIONS WITH A PREDOMINANTLY SEXUAL MODE OF TRANS active 302668793 SNOMED- CT ENCOUNTER FOR SCREENING FOR RESPIRATORY TUBERCULOSIS active 701044001 SNO MED-CT LEFT LOWER QUADRANT PAIN active 91083 6002 SNOMED-CT ENCOUNTER FOR GYNECOLOGICAL EXAMINATION (GENERAL) (ROUTINE) WITHOUT ABNORMAL FIN active 65581831 SNOMED- CT Plan of Treatment No Data Found Encounters Encounter Diagnosis Start Date Code Code Sys tem Nasal congestion 09/29/2023 79373877 SNOMED-CT Personal Care Team Section Performer Name Performer Role Active Date Inactive YULIANA Garcia PCP - Primary care physician 2022-09-10
[2025-03-23 17:28] LABS: Basophils Percent Auto 0.2 % (0.2-1.2); Eosinophils Absolute Auto 0.2 K/mm3 (0-0.3); Hematocrit 36.6 % (37.0-47.0); Hemoglobin 12.1 g/dL (12.0-15.0); Immature Granulocyte Absolute 0.11 K/mm3 (0.00-0.031); Immature Granulocyte Percent A 0.6 % (0-0.5); Lymphocytes Absolute Auto 3.08 K/mm3 (0.9-3.2); Lymphocytes Percent Auto 17.7 % (18.3-44.2); Mean Corpuscular HGB Conc 33.1 g/dl (32-36); Mean Corpuscular Hemoglobin 28.3 pg (26-34); Mean Corpuscular Volume 85.7 fl (80-100); Mean Platelet Volume 9.8 fl (7.4-10.4); Monocytes Absolute Auto 0.9 K/mm3 (0.1-0.6); Monocytes Percent Auto 4.9 % (2.6-8.5); Neutrophils Absolute Auto 13.1 K/mm3 (1.3-6.7); Neutrophils Percent Auto 75.6 % (45.5-73.1); Platelet Count Result 300 k/mm3 (150-375); Red Blood Count 4.27 M/mm3 (4.2-5.4); Red Cell Distribution Width 14.2 % (11.5-14.5); White Blood Count 17.4 K/mm3 (4.5-10.0)
--- NOTE | 2025-03-23 17:29 | LDADM ---
This patient, Sana Ortega, was admitted to Labor/Delivery/Recovery 103 on 03/23/25 at 16:52. Plans for labor, pain management and were discussed with patient. Patient/family oriented to hospital policies and general routines including ID bracelet, bed and alarms, visiting hours, pain management, procedures, bathroom and other care routines, personal items, smoking policy, room service/diet and guest tray routines, infant security routines, and visiting hours. Patient/Family are encouraged to report perceived risks to care and to ask questions if they do not understand what they are told or what they should do. See OBIX for further documentation.
[2025-03-23 18:13] LABS: Syphilis IgG/IgM Antibody Negative (Negative)
[2025-03-23 18:20] LABS: HIV 1/2 Ab P24 Ag Result Negative (Negative)
[2025-03-23] MEDS: miSOPROStol 25 MCG TABLET 50 MCG BUCCAL ×2 (18:30→22:32)
[2025-03-23] MEDS: LACTATED RINGERS 1,000 ML 125 ML IV CONT (22:30)
[2025-03-24] VITALS (174 sets, daily range): BP systolic 87–158; BP diastolic 22–107; PULSE 25–131; RESP 14–18; TEMP 36.3–37.3; O2SAT 88–100
[2025-03-24] MEDS: ONDANSETRON INJ 4 MG/2 ML VIAL IV PUSH ×2 (00:28→08:17)
[2025-03-24] MEDS: fentaNYL CITRATE INJ (*CRX) 100 MCG/2 ML VIAL 50 MCG IV PUSH (00:35)
[2025-03-24] MEDS: fentaNYL CITRATE INJ (*CRX) 100 MCG/2 ML VIAL IV PUSH (02:42)
[2025-03-24] MEDS: LACTATED RINGERS 1,000 ML 125 ML IV CONT ×2 (03:21→04:27)
--- NOTE | 2025-03-24 04:05 | WPDANESEPP ---
Anes - Eval Pre Procedure Procedure: labor pain management Date/Time: 03/24/25 04:05 Surgeon: Coleman Preop Diagnosis: pain during labor Pre Op Diagnosis: IOL Patient Data Age: 24 Gender: F Height: 1.6 m Weight: 88.5 kg Last Vital Signs Temp 97.9 F 03/24/25 02:00 Pulse 102 H 03/24/25 04:00 BP 132/79 03/24/25 04:00 Pulse Ox 99 03/24/25 04:04 O2 Del Method Room Air 03/23/25 17:29 Allergies Allergy/AdvReac Type Severity Reaction Status Date / Time No Known Allergies Allergy Verified 03/23/25 17:40 Home Medications ?Medication ?Instructions ?Recorded ?Confirmed ?Type docusate sodium 100 mg capsule 100 mg PO BID 03/10/25 03/10/25 History (Col-Rite) ondansetron 4 mg disintegrating mg 03/10/25 History tablet vitamin with calcium 1 tablet PO Q24H 03/10/25 03/23/25 History no.72-iron 27 mg-folic acid 1 mg tablet ( Vitamins Plus Low Iron) valacyclovir 1 gram tablet 500 mg PO Q12H 03/10/25 03/23/25 History Laboratory Tests 03/23/25 03/23/25 17:21 17:22 WBC 17.4 H K/mm3 (4.5-10.0) RBC 4.27 M/mm3 (4.2-5.4) Hgb 12.1 g/dL (12.0-15.0) Hct 36.6 L % (37.0-47.0) MCV 85.7 fl (80-100) MCH 28.3 pg (26-34) MCHC 33.1 g/dl (32-36) RDW 14.2 % (11.5-14.5) Plt Count 300 k/mm3 (150-375) MPV 9.8 fl (7.4-10.4) Immature Gran % (Auto) 0.6 H % (0-0.5) Neut % (Auto) 75.6 H % (45.5-73.1) Lymph % (Auto) 17.7 L % (18.3-44.2) Coos % (Auto) 4.9 % (2.6-8.5) Eos % (Auto) 1.0 % (0-4.4) Baso % (Auto) 0.2 % (0.2-1.2) Lymph # (Auto) 3.08 K/mm3 (0.9-3.2) Coos # (Auto) 0.9 H K/mm3 (0.1-0.6) Eos # (Auto) 0.2 K/mm3 (0-0.3) Baso # (Auto) 0.0 K/mm3 (0.0-0.1) Abs Immat Gran (auto) 0.11 H K/mm3 (0.00-0.031) Absolute Neuts (auto) 13.1 H K/mm3 (1.3-6.7) Absolute Nucleated RBC 0.000 K/mm3 (0.0-0.012) Nucleated RBC % 0.0 % (0.0-0.2) Syphilis IgG/IgM Ab Negative (Negative) HIV 1&2 Ab/P24 Ag 4thGn Negative (Negative) Blood Type O Positive Antibody Screen Negative Patient hx anesthesia problems: none Family hx anesthesia problems: none Results Review: All pre-operative results and documents have been reviewed as part of the pre-operative evaluation. REPLACED BY [facility] Past Medical History Medical History Depression Anxiety Obesity (BMI 30-39.9) Family History Family History Grandparent Leukemia Diabetes mellitus Mother Diabetes mellitus Social History Social History Smoking status: Former smoker Tobacco type: e-cigarettes/vaping Second hand tobacco smoke exposure: No Substance use: never Do You Feel Safe in your Home?: Yes Lack of Transportation: No Lack of Food: Never True Current Housing: I Have Housing Concerned About Future Housing: No Difficulty Paying Gas/Electric Bills: No Difficulty Paying for Meds: No Currently Unemployed: YES Education: Trade/Vocational Certificate Difficulty w/ Childcare or Family Care: No Spiritual care concerns: No Exam Day of Procedure 03/24/25 04:05
--- NOTE | 2025-03-24 08:07 | PM.IMHP ---
H&P: [facility] History of Present Illness Date/Time: 03/24/25 08:07 Chief Complaint: Labor Narrative: This patient is a 24-year-old primiparous female who presents for induction of labor. While laboring patient developed nonreassuring heart tones. There is a vulvar lesion present. Patient is known to have herpes. To proceed with delivery. Patient understands procedure. She understands risks, benefits, and alternatives. She has completed the informed consent process is ready to proceed. The patient understands the details of the procedure. The procedure has been explained in detail. She understands the risks. She understands that injuries may occur that result in hospitalization, more surgery, and severe illness. She understands risk of hemorrhage and infection. She denies any chest pain or shortness of breath. She denies any nausea, vomiting, fever, chills. Review of Systems Review of Systems: All systems reviewed & are unremarkable except as noted in HPI and below Constitutional: Constitutional: Denies chills, Denies fatigue, Denies fever(s) and Denies weakness Eyes: Eyes: Denies blurry vision, Denies change in vision, Denies loss of peripheral vision, Denies loss of vision, Denies other visual disturbances and Denies eye pain ENT: Denies vertigo, Denies dizziness, Denies hearing loss, Denies mouth pain, Denies nasal obstruction, Denies neck mass and Denies neck pain Cardiovascular: Cardiovascular: Denies chest pain, Denies diaphoresis, Denies syncope, Denies leg edema and Denies dyspnea Respiratory: Respiratory: Denies chest congestion, Denies cough, Denies hemoptysis, Denies dyspnea and Denies wheezing Gastrointestinal: Gastrointestinal: Denies abdominal pain, Denies constipation, Denies diarrhea, Denies nausea and Denies vomiting Genitourinary: Genitourinary: Denies hematuria, Denies change in libido, Denies nocturia, Denies genital lesions, Denies flank pain and Denies urinary urgency Musculoskeletal: Musculoskeletal: Denies abnormal gait, Denies back pain, Denies myalgias, Denies arthralgias, Denies joint swelling, Denies muscle weakness and Denies neck pain Integumentary/Breasts: Skin/Breast: Denies swelling, Denies breast pain, Denies breast mass, Denies dry skin, Denies nipple discharge, Denies unusual bruising and Denies jaundice Neurologic: Denies Neuro-related abnormal movements, Denies Abnormal speech present, Denies abnormal gait, Denies behavioral changes, Denies confusion, Denies vertigo, Denies dizziness, Denies syncope, Denies loss of vision, Denies memory loss, Denies convulsions and Denies weakness Psychiatric: Psychiatric: Denies abnormal sleep pattern, Denies behavioral changes, Denies change in libido, Denies confusion, Denies depression, Denies anhedonia and Denies memory loss Endocrine: Endocrine: Reports no additional endocrine complaints, Denies change in libido and Denies fatigue Hematologic/Lymphatic: Hematologic/Lymphatic: Reports no additional hematologic/lymphatic complaints Allergic/Immunologic: Allergic/Immunologic: Reports no additional allergic/immunologic complaints and Denies wheezing PMFSH Past Medical History Medical History Depression Anxiety Obesity (BMI 30-39.9) Family History Family History Grandparent Leukemia Diabetes mellitus Mother Diabetes mellitus Social History Social History Smoking status: Former smoker Tobacco type: e-cigarettes/vaping Second hand tobacco smoke exposure: No Substance use: never Do You Feel Safe in your Home?: Yes Lack of Transportation: No Lack of Food: Never True Current Housing: I Have Housing Concerned About Future Housing: No Difficulty Paying Gas/Electric Bills: No Difficulty Paying for Meds: No Currently Unemployed: YES Education: Trade/Vocational Certificate Difficulty w/ Childcare or Family Care: No Spiritual care concerns: No Meds Home Medications and Allergies Home Medications ?Medication ?Instructions ?Recorded ?Confirmed ?Type docusate sodium 100 mg capsule 100 mg PO BID 03/10/25 03/10/25 History ([facility]) ondansetron 4 mg disintegrating mg 03/10/25 History tablet vitamin with calcium 1 tablet PO Q24H 03/10/25 03/23/25 History no.72-iron 27 mg-folic acid 1 mg tablet ( Vitamins Plus Low Iron) valacyclovir 1 gram tablet 500 mg PO Q12H 03/10/25 03/23/25 History Allergies Allergy/AdvReac Type Severity Reaction Status Date / Time No Known Allergies Allergy Verified 03/23/25 17:40 Vital Signs Vital Signs - 24 hr 03/23/25 17:04 03/23/25 17:29 03/23/25 18:22 Temperature Pulse Rate 110 H 112 H Blood Pressure 131/86 129/75 Pulse Oximetry 98 Oxygen Delivery Room Air 03/23/25 18:30 03/23/25 19:00 03/23/25 19:30 Temperature 97.7 F Pulse Rate 90 113 H 99 Blood Pressure 142/78 H 140/79 135/77 Pulse Oximetry Oxygen Delivery 03/23/25 20:00 03/23/25 20:30 03/23/25 21:30 Temperature 97.6 F Pulse Rate 97 91 97 Blood Pressure 140/81 131/71 126/70 Pulse Oximetry Oxygen Delivery 03/23/25 22:00 03/23/25 22:30 03/23/25 23:00 Temperature 97.6 F Pulse Rate 98 96 88 Blood Pressure 116/73 119/71 104/65 Pulse Oximetry Oxygen Delivery 03/23/25 23:30 03/23/25 23:34 03/23/25 23:39 Temperature Pulse Rate 84 Blood Pressure 124/80 Pulse Oximetry 100 99 Oxygen Delivery 03/23/25 23:44 03/23/25 23:49 03/23/25 23:54 Temperature Pulse Rate Blood Pressure Pulse Oximetry 100 100 100 Oxygen Delivery 03/23/25 23:59 03/24/25 00:00 03/24/25 00:04 Temperature 97.3 F L Pulse Rate 87 Blood Pressure 121/68 Pulse Oximetry 100 99 Oxygen Delivery 03/24/25 00:09 03/24/25 00:14 03/24/25 00:19 Temperature Pulse Rate Blood Pressure Pulse Oximetry 100 99 100 Oxygen Delivery 03/24/25 00:24 03/24/25 00:29 03/24/25 00:30 Temperature Pulse Rate 89 Blood Pressure 141/70 H Pulse Oximetry 99 100 Oxygen Delivery 03/24/25 00:36 03/24/25 00:41 03/24/25 00:46 Temperature Pulse Rate Blood Pressure Pulse Oximetry 100 100 100 Oxygen Delivery 03/24/25 00:51 03/24/25 00:56 03/24/25 01:00 Temperature Pulse Rate 79 Blood Pressure 131/68 Pulse Oximetry 100 100 Oxygen Delivery 03/24/25 01:01 03/24/25 01:06 03/24/25 01:11 Temperature Pulse Rate Blood Pressure Pulse Oximetry 100 100 100 Oxygen Delivery 03/24/25 01:16 03/24/25 01:21 03/24/25 01:30 Temperature Pulse Rate Blood Pressure Pulse Oximetry 99 99 96 Oxygen Delivery 03/24/25 01:30 03/24/25 01:30 03/24/25 01:30 Temperature Pulse Rate 92 Blood Pressure 114/84 Pulse Oximetry 97 Oxygen Delivery 03/24/25 01:35 03/24/25 01:40 03/24/25 01:45 Temperature Pulse Rate Blood Pressure Pulse Oximetry 100 100 100 Oxygen Delivery 03/24/25 01:50 03/24/25 01:55 03/24/25 02:00 Temperature 97.9 F Pulse Rate 80 Blood Pressure 130/77 Pulse Oximetry 100 100 100 Oxygen Delivery 03/24/25 02:05 03/24/25 02:10 03/24/25 02:15 Temperature Pulse Rate Blood Pressure Pulse Oximetry 100 100 100 Oxygen Delivery 03/24/25 02:21 03/24/25 02:22 03/24/25 02:22 Temperature Pulse Rate Blood Pressure Pulse Oximetry 90 91 100 Oxygen Delivery 03/24/25 02:27 03/24/25 02:29 03/24/25 02:30 Temperature Pulse Rate 80 Blood Pressure 118/67 Pulse Oximetry 100 96 Oxygen Delivery 03/24/25 02:40 03/24/25 02:45 03/24/25 02:50 Temperature Pulse Rate Blood Pressure Pulse Oximetry 99 99 99 Oxygen Delivery 03/24/25 02:55 03/24/25 03:00 03/24/25 03:05 Temperature Pulse Rate 79 Blood Pressure 118/70 Pulse Oximetry 99 99 99 Oxygen Delivery 03/24/25 03:10 03/24/25 03:14 03/24/25 03:21 Temperature Pulse Rate Blood Pressure Pulse Oximetry 99 100 100 Oxygen Delivery 03/24/25 03:26 03/24/25 03:30 03/24/25 03:31 Temperature Pulse Rate 131 H Blood Pressure 109/56 L Pulse Oximetry 100 99 Oxygen Delivery 03/24/25 03:36 03/24/25 03:41 03/24/25 03:46 Temperature Pulse Rate Blood Pressure Pulse Oximetry 100 100 100 Oxygen Delivery 03/24/25 03:51 03/24/25 03:56 03/24/25 03:59 Temperature Pulse Rate Blood Pressure Pulse Oximetry 100 100 88 L Oxygen Delivery 03/24/25 04:00 03/24/25 04:04 03/24/25 04:04 Temperature 98 F Pulse Rate 102 H Blood Pressure 132/79 Pulse Oximetry 99 99 Oxygen Delivery 03/24/25 04:04 03/24/25 04:04 03/24/25 04:04 Temperature Pulse Rate Blood Pressure Pulse Oximetry 99 99 99 Oxygen Delivery 03/24/25 04:09 03/24/25 04:11 03/24/25 04:13 Temperature Pulse Rate 103 H Blood Pressure 137/66 Pulse Oximetry 100 98 Oxygen Delivery 03/24/25 04:15 03/24/25 04:15 03/24/25 04:15 Temperature Pulse Rate Blood Pressure 133/106 H Pulse Oximetry 100 99 Oxygen Delivery 03/24/25 04:15 03/24/25 04:17 03/24/25 04:20 Temperature Pulse Rate 106 H 108 H 91 Blood Pressure 156/98 H 132/79 Pulse Oximetry 91 Oxygen Delivery 03/24/25 04:23 03/24/25 04:25 03/24/25 04:28 Temperature Pulse Rate 111 H 101 H 93 Blood Pressure 114/89 135/73 129/72 Pulse Oximetry 100 99 Oxygen Delivery 03/24/25 04:30 03/24/25 04:33 03/24/25 04:35 Temperature Pulse Rate 98 98 105 H Blood Pressure 132/80 137/76 128/72 Pulse Oximetry 99 Oxygen Delivery 03/24/25 04:38 03/24/25 04:40 03/24/25 04:43 Temperature Pulse Rate 93 96 97 Blood Pressure 130/73 131/67 126/74 Pulse Oximetry 98 98 Oxygen Delivery 03/24/25 04:45 03/24/25 04:48 03/24/25 04:50 Temperature Pulse Rate 98 92 92 Blood Pressure 129/76 126/65 129/72 Pulse Oximetry 99 Oxygen Delivery 03/24/25 04:53 03/24/25 04:55 03/24/25 04:58 Temperature Pulse Rate 101 H 88 91 Blood Pressure 122/73 127/70 123/78 Pulse Oximetry 97 97 Oxygen Delivery 03/24/25 05:00 03/24/25 05:03 03/24/25 05:05 Temperature Pulse Rate 88 90 88 Blood Pressure 126/76 125/74 126/76 Pulse Oximetry 97 Oxygen Delivery 03/24/25 05:08 03/24/25 05:10 03/24/25 05:13 Temperature Pulse Rate 95 94 86 Blood Pressure 121/71 125/79 132/71 Pulse Oximetry 97 100 Oxygen Delivery 03/24/25 05:15 03/24/25 05:17 03/24/25 05:18 Temperature Pulse Rate 94 90 Blood Pressure 115/50 L 127/72 Pulse Oximetry 99 Oxygen Delivery 03/24/25 05:20 03/24/25 05:23 03/24/25 05:28 Temperature Pulse Rate 89 99 Blood Pressure 126/51 L 97/66 L Pulse Oximetry 100 98 Oxygen Delivery 03/24/25 05:30 03/24/25 05:33 03/24/25 05:38 Temperature Pulse Rate 96 Blood Pressure 104/60 Pulse Oximetry 98 98 Oxygen Delivery 03/24/25 05:43 03/24/25 05:48 03/24/25 05:53 Temperature Pulse Rate Blood Pressure Pulse Oximetry 96 97 97 Oxygen Delivery 03/24/25 05:58 03/24/25 06:00 03/24/25 06:03 Temperature Pulse Rate 88 Blood Pressure 94/48 L Pulse Oximetry 97 98 Oxygen Delivery 03/24/25 06:08 03/24/25 06:13 03/24/25 06:15 Temperature 98.4 F Pulse Rate Blood Pressure Pulse Oximetry 97 99 Oxygen Delivery 03/24/25 06:18 03/24/25 06:23 03/24/25 06:28 Temperature Pulse Rate Blood Pressure Pulse Oximetry 99 99 98 Oxygen Delivery 03/24/25 06:30 03/24/25 06:33 03/24/25 06:36 Temperature Pulse Rate 90 Blood Pressure 111/47 L Pulse Oximetry 98 Oxygen Delivery Room Air 03/24/25 06:38 03/24/25 06:43 03/24/25 06:48 Temperature Pulse Rate Blood Pressure Pulse Oximetry 98 97 98 Oxygen Delivery 03/24/25 06:53 03/24/25 06:58 03/24/25 07:00 Temperature Pulse Rate 90 Blood Pressure 106/51 L Pulse Oximetry 98 98 Oxygen Delivery 03/24/25 07:03 03/24/25 07:08 03/24/25 07:13 Temperature Pulse Rate Blood Pressure Pulse Oximetry 99 98 98 Oxygen Delivery 03/24/25 07:18 03/24/25 07:23 03/24/25 07:28 Temperature Pulse Rate Blood Pressure Pulse Oximetry 97 97 97 Oxygen Delivery 03/24/25 07:30 03/24/25 07:33 03/24/25 07:38 Temperature Pulse Rate 86 Blood Pressure 111/48 L Pulse Oximetry 97 97 Oxygen Delivery 03/24/25 07:43 03/24/25 07:45 03/24/25 07:46 Temperature 99.2 F Pulse Rate 96 Blood Pressure 116/50 L Pulse Oximetry 97 Oxygen Delivery 03/24/25 07:48 03/24/25 07:53 03/24/25 07:58 Temperature Pulse Rate Blood Pressure Pulse Oximetry 99 99 98 Oxygen Delivery 03/24/25 08:00 03/24/25 08:03 Temperature Pulse Rate 128 H Blood Pressure 136/88 Pulse Oximetry 98 Oxygen Delivery Exam Const: General: cooperative, healthy appearing, comfortable and no acute distress Orientation/consciousness: oriented to person, oriented to place and oriented to time HENMT: Head: normal to inspection Ears: external ears normal Face/Nose/Sinus: Normal external nose present and normal facial exam Face and sinus: normal facial exam Eyes: General: appearance normal, both eyes and all related structures Neck: Neck: normal visual inspection, trachea midline and supple Resp: Auscultation: clear to auscultation bilaterally, no crackles, no rales, no rhonchi and no wheezes Cardio: Rate: regular rate Rhythm: regular rhythm Heart sounds: no click, no murmurs and no rubs GI: GI Palp: No abdominal tenderness, No Soft to palpation, No Tenderness to palpation present (GI) and No Palpable mass present Auscultation: normal bowel sounds Skin: General skin exam: normal color and no rashes or lesions noted Neuro: General: oriented to person, oriented to place and oriented to time Extrem: General: normal to inspection, no joint enlargement, no clubbing, cyanosis or edema, no pedal edema and no calf tenderness Psych: Appearance: grossly normal Mental Status: mental status grossly normal Speech and movement: Normal speech and movement present H&P: Results Labs Labs: Short CBC 03/23/25 Range/Units 17:22 WBC 17.4 H (4.5-10.0) K/mm3 Hgb 12.1 (12.0-15.0) g/dL Hct 36.6 L (37.0-47.0) % Plt Count 300 (150-375) k/mm3 Assessment and Plan Assessment and plan (1) HSV (herpes simplex virus) infection: Code(s): B00.9 - Herpesviral infection, unspecified Status: Acute (2) Vulvar lesion: Code(s): N90.89 - Other specified noninflammatory disorders of vulva and perineum Status: Acute (3) Non-reassuring heart tones complicating , antepartum: Code(s): O36.8390 - Maternal care for abnormalities of the heart rate or rhythm, unspecified trimester, not applicable or unspecified Status: Acute Plan This patient is a 24-year-old primiparous female who presents for induction of labor. While laboring patient developed nonreassuring heart tones. There is a vulvar lesion present. Patient is known to have herpes. To proceed with delivery. Patient understands procedure. She understands risks, benefits, and alternatives. She has completed the informed consent process is ready to proceed.
--- NOTE | 2025-03-24 08:11 | WPDHPUPDATE1 ---
History and Physical Update Update Date/Time: 03/24/25 08:11 History and Physical has been reviewed, including an updated exam of the patient. There are NO changes in the patient's condition. Risks, benefits, and alternatives have been discussed and questions answered. Patient agrees to proceed with procedure.
[2025-03-24] MEDS: FAMOTIDINE 20 MG/2 ML VIAL IV PUSH (08:17)
[2025-03-24] MEDS: ACETAMINOPHEN 500 MG TABLET 1000 MG PO (08:17)
--- NOTE | 2025-03-24 08:52 | P.PNAN_ITS ---
Anes - Eval Final PreProcedure Day of Procedure 03/24/25 08:52 Patient weight: obese Heart: regular rate and rhythm Lungs: clear to auscultation Airway: Mallampati scale class II Neurological: alert and oriented ASA classification: II Emergent: no Anesthetic plan: proceed Anesthesia type and monitoring: regional epidural and standard monitoring Other findings: epid for c/s Results Review: All pre-operative results and documents have been reviewed as part of the pre- operative evaluation. Informed Consent: The patient's anesthetic plan and its attendant risks and benefits were discussed with the patient/family/POA. Questions were solicited and answers provided to the satisfaction of the patient/family/POA.
--- NOTE | 2025-03-24 09:01 | W.PM.OBCSD ---
OB - Delivery Note Procedure Delivery date: 03/24/25 Pre-op diagnosis: Non-Reassuring Status and Other (With possible HSV infection, vulvar) Post-op Diagnosis: Same Induction method: Per Misoprostol Protocol and Per Pitocin Protocol Delivery monitor: External FHT and External Uterine Procedure Performed: Primary Surgeon: Luisito Cee MD Anesthesia type: Epidural Description of Procedure/Findings: The patient was taken the operating room.? She was prepped and draped in dorsal supine position with a leftward tilt.? This was done after spinal anesthetic was applied.? A low-transverse skin incision was made and carried down till of the fascia with the knife.? The fascial incision was made with the knife.? The fascial incision was extended laterally with Wynne scissors.? The fascia was tented upward superiorly and inferiorly the rectus muscles were dissected off bluntly.? The rectus muscles were the midline.? The preperitoneal fat and peritoneum were dissected open bluntly at the superior aspect of the rectus muscles.? The peritoneal incision was extended superior and inferior with good position of bladder.? The uterine incision was made with a scalpel down to the level of the amniotic cavity.? The amniotic cavity was entered bluntly.? The was delivered.? The cord was clamped and cut and the was handed off to waiting pediatric staff.? Cord bloods were obtained.? The placenta was removed manually.? The uterus was exteriorized.? The uterus was cleared of all clots, debris and membranes.? The uterus was closed in 0 Vicryl running lock fashion.? An imbricating over a was placed along the incision line as well.? The uterus was returned to the abdomen.? The gutters were cleared of all clots and debris.? The fascia was closed with 0 Vicryl running fashion.? The subcutaneous tissue was irrigated pinpoint bleeders were cauterized.? The skin was closed with subcuticular absorbable stephen.? The skin incision line was covered with glue.? The patient tolerated the procedure well.? She has taken recovery room in stable condition.? Sponge lap and needle counts were correct x2.? Pathology: Yes Complications: No immediate complications Condition: Stable Disposition: Floor
[2025-03-24] MEDS: OXYTOCIN 30 UNITS/NS 500 ML 30 UNITS/500 ML BAG 125 UNITS IV CONT (09:44)
[2025-03-24] MEDS: LACTATED RINGERS 250 ML 999 ML IVPB (09:44)
[2025-03-24] MEDS: MORPHINE SULFATE INJ (*CRX) 10 MG/ML AMP 3 MG IV PUSH ×2 (10:55→11:15)
[2025-03-24] MEDS: LIDOCAINE 5% PATCH 1 PATCH TRANSDERM (12:45)
[2025-03-24] MEDS: LORATADINE 10 MG TABLET PO (12:45)
[2025-03-24] MEDS: MULTIVIT/MIN/PREN/FOL AC/IRON TABLET 1 TAB PO (12:45)
[2025-03-24] MEDS: SIMETHICONE 80 MG TAB.CHEW PO ×2 (12:45→16:37)
[2025-03-24] MEDS: valACYclovir HCL 500 MG TABLET PO (12:45)
[2025-03-24] MEDS: KETOROLAC 15 MG/ML VIAL (*BKC) IV PUSH (13:51)
[2025-03-24] MEDS: ACETAMINOPHEN 325 MG TABLET 650 MG PO ×2 (13:51→20:06)
[2025-03-24] MEDS: DEXTROSE 5%/0.45% SOD CHL 1,000 ML 125 ML IV CONT (13:52)
[2025-03-24] MEDS: DOCUSATE SODIUM 100 MG CAPSULE PO (16:37)
[2025-03-24] MEDS: IBUPROFEN 600 MG TABLET PO (20:06)
[2025-03-25 02:00] VITALS: BP 110/65; PULSE 88; RESP 20; TEMP 36.8; O2SAT 99
[2025-03-25] MEDS: ACETAMINOPHEN 325 MG TABLET 650 MG PO ×3 (02:00→19:41)
[2025-03-25] MEDS: IBUPROFEN 600 MG TABLET (02:00)
[2025-03-25] MEDS: HYDROcodone/acetaminophen (*CRX) 10-325 MG TABLET 1 TAB PO (02:00)
[2025-03-25 05:17] LABS: Basophils Percent Auto 0.2 % (0.2-1.2); Eosinophils Absolute Auto 0.2 K/mm3 (0-0.3); Eosinophils Percent Auto 0.9 % (0-4.4); Hematocrit 29.2 % (37.0-47.0); Hemoglobin 9.6 g/dL (12.0-15.0); Immature Granulocyte Percent A 0.6 % (0-0.5); Lymphocytes Absolute Auto 2.54 K/mm3 (0.9-3.2); Lymphocytes Percent Auto 15.3 % (18.3-44.2); Mean Corpuscular HGB Conc 32.9 g/dl (32-36); Mean Corpuscular Hemoglobin 28.7 pg (26-34); Mean Corpuscular Volume 87.4 fl (80-100); Mean Platelet Volume 10.3 fl (7.4-10.4); Monocytes Percent Auto 5.8 % (2.6-8.5); Neutrophils Absolute Auto 12.8 K/mm3 (1.3-6.7); Neutrophils Percent Auto 77.2 % (45.5-73.1); Platelet Count Result 253 k/mm3 (150-375); Red Blood Count 3.34 M/mm3 (4.2-5.4); Red Cell Distribution Width 14.5 % (11.5-14.5); White Blood Count 16.6 K/mm3 (4.5-10.0)
--- NOTE | 2025-03-25 05:19 | PC.NURSE ---
Hand pump provided per pt request- education given on pumping schedule, cleaning of pump parts, storage of breast milk, fir of flange, etc. Encouraged pt to call out if any assistance is needed and pt verbalized understanding.
[2025-03-25] MEDS: valACYclovir HCL 500 MG TABLET PO ×2 (07:33→19:42)
[2025-03-25] MEDS: POLYSACCHARIDE IRON COMPLEX 150 MG CAPSULE PO ×2 (07:33→17:35)
[2025-03-25] MEDS: SIMETHICONE 80 MG TAB.CHEW PO ×3 (07:33→17:35)
[2025-03-25] MEDS: DOCUSATE SODIUM 100 MG CAPSULE PO ×2 (07:33→17:35)
[2025-03-25] MEDS: MULTIVIT/MIN/PREN/FOL AC/IRON TABLET 1 TAB PO (07:34)
[2025-03-25] MEDS: IBUPROFEN 600 MG TABLET PO ×3 (07:34→19:42)
[2025-03-25 07:38] VITALS: BP 120/72; PULSE 78; RESP 18; TEMP 36.6; O2SAT 99
--- NOTE | 2025-03-25 09:46 | P.PNOB_ITS ---
OB - PN: Subj Subjective Date/time seen: 03/25/25 09:46 Interval history: pp day 1 doing well not passing flatus baby doing well OB - PN: Obj Data Labs 03/25/25 04:26 Labs: Laboratory Results - last 24 hr 03/25/25 04:26 WBC 16.6 H RBC 3.34 L Hgb 9.6 L Hct 29.2 L MCV 87.4 MCH 28.7 MCHC 32.9 RDW 14.5 Plt Count 253 MPV 10.3 Immature Gran % (Auto) 0.6 H Neut % (Auto) 77.2 H Lymph % (Auto) 15.3 L [place] % (Auto) 5.8 Eos % (Auto) 0.9 Baso % (Auto) 0.2 Lymph # (Auto) 2.54 [place] # (Auto) 1.0 H Eos # (Auto) 0.2 Baso # (Auto) 0.0 Abs Immat Gran (auto) 0.10 H Absolute Neuts (auto) 12.8 H Absolute Nucleated RBC 0.000 Nucleated RBC % 0.0 OB - PN A/P Plan day: 1 Plan: routine care and discharge home Time Spent With Patient Time: Total time spent is greater than 50% in coordination of care (as documented) at patient's floor/unit and/or counseling patient: Review of Systems 2 Review of Systems: All systems reviewed & are unremarkable except as noted in HPI and below Exam 2 Const: General: cooperative, healthy appearing and comfortable Chest: Chest palpation & inspection: normal inspection of the chest Resp: Effort & Inspection: normal respiratory effort Cardio: Rate: regular rate GI: Inspection: normal to inspection Other: incision CDI Skin: General skin exam: normal color Neuro: General: patient oriented x3
[2025-03-25] MEDS: LORATADINE 10 MG TABLET PO (11:16)
[2025-03-25] MEDS: HYDROcodone/acetaminophen (*CRX) 5-325 MG TABLET 1 TAB PO ×2 (11:17→20:57)
[2025-03-25] MEDS: TETANUS,DIPHTHERIA,AC PERTUSSIS ADULT (0.5 ML) BOOSTRIX IM (11:17)
--- NOTE | 2025-03-25 12:30 | WPDANLDPN2 ---
Anes-Prog Note L&D Date/Time: 03/25/25 12:30 Comfortable throughout: section Neuraxial method: spinal Epidural/Spinal procedure site: clean & non-tender Neuro status: Neuro function grossly intact. Cardiovascular status: normal Respiratory status: normal Airway patency: baseline Mental status: baseline Post-Op hydration status: normal Vital Signs: Last Vital Signs Temp 97.8 F 03/25/25 07:38 Pulse 78 03/25/25 07:38 Resp 18 03/25/25 07:38 BP 120/72 03/25/25 07:38 Pulse Ox 99 03/25/25 07:38 O2 Del Method Room Air 03/24/25 11:15 Pain score (VAS): 0 I/O: Intake & Output 03/24/25 03/25/25 03/25/25 23:59 07:59 15:59 Intake Total 400 Output Total 500 1320 Balance -100 -1320 Post-procedural complaints: pruritis moderate, treatment effective Patient feedback: Patient satisfied with anesthetic care.
--- NOTE | 2025-03-25 12:30 | WPDANLDNPN2 ---
Anes-Prog Note L&D-Neuraxial Date/Time: 03/25/25 12:30 Neuraxial medications: intrathecal PF morphine Opiod-related complaints: pruritis moderate, treatment effective Patient feedback: Patient satisfied with post-operative pain management.
[2025-03-25] MEDS: LIDOCAINE 5% PATCH 1 PATCH TRANSDERM (12:38)
[2025-03-25] MEDS: ACETAMINOPHEN 325 MG TABLET 650 MG (13:39)
--- NOTE | 2025-03-25 16:45 | PC.NURSE ---
Consulted with patient to assess needs related to . Discussed with mother her successes, concerns and any questions she has. We reviewed working with the , supporting breast, protecting her nipples with an optimal deep latch, good positioning, and good hand washing. Encouraged understanding the benefits of skin to skin, responding to feeding cues, frequencies of feeding 8-12 times in 24 hours (approximately 2-3 hours), duration of feedings, milk production, intake/output feeding sheet and signs of adequate intake encouraging swallowing at the breast. Reviewed positioning and alignment, supporting breast, off-centered (asymmetrical latch) and leading with the chin with big, open, wide gape. latched optimally to the [right] breast in [football] position. Education given to the mother of how to visualize the suckling (with good rocking jaw motion) swallows (dropping of the lower jaw) and how to listen for drinking at the breast (the ka sound). The infant was [able] to maintain latch without discomfort to mother. Nipple care reviewed with optimal latch, good positioning and using clean hands when touching her breast. Resources used to facilitate learning were used from the [visual handouts/ tool/mom and baby guide]. Mother voiced understanding of the education shared, to call for assistance if the does not latch or if there is discomfort with . Reported to the Primary RN.
[2025-03-25 19:28] VITALS: BP 102/62; PULSE 93; RESP 16; TEMP 37.2; O2SAT 98
[2025-03-26] MEDS: HYDROCORTISONE 1% 30 GM OINTMENT 1 APPLIC TOPICAL (01:02)
[2025-03-26] MEDS: HYDROcodone/acetaminophen (*CRX) 5-325 MG TABLET 1 TAB PO ×2 (01:02→17:30)
[2025-03-26] MEDS: IBUPROFEN 600 MG TABLET PO ×4 (01:35→19:26)
[2025-03-26] MEDS: ACETAMINOPHEN 325 MG TABLET 650 MG PO ×4 (01:35→19:27)
[2025-03-26 07:40] VITALS: BP 120/77; PULSE 92; RESP 20; TEMP 36.8; O2SAT 98
[2025-03-26] MEDS: SIMETHICONE 80 MG TAB.CHEW PO ×3 (07:55→17:30)
[2025-03-26] MEDS: POLYSACCHARIDE IRON COMPLEX 150 MG CAPSULE PO ×2 (07:55→17:31)
[2025-03-26] MEDS: DOCUSATE SODIUM 100 MG CAPSULE PO ×2 (07:55→17:30)
[2025-03-26] MEDS: MULTIVIT/MIN/PREN/FOL AC/IRON TABLET 1 TAB PO (07:55)
[2025-03-26] MEDS: LORATADINE 10 MG TABLET PO (07:56)
[2025-03-26] MEDS: valACYclovir HCL 500 MG TABLET PO ×2 (07:56→23:35)
--- NOTE | 2025-03-26 08:12 | P.PNOB_ITS ---
OB - PN: Subj Subjective Date/time seen: 03/26/25 08:12 Interval history: pp day 2 doing well passing flatus baby doing well OB - PN: Obj Data Labs 03/25/25 04:26 OB - PN A/P Plan day: 2 Plan: routine care Time Spent With Patient Time: Total time spent is greater than 50% in coordination of care (as documented) at patient's floor/unit and/or counseling patient: Review of Systems 2 Review of Systems: All systems reviewed & are unremarkable except as noted in HPI and below Exam 2 Const: General: cooperative and healthy appearing Chest: Chest palpation & inspection: normal inspection of the chest Resp: Effort & Inspection: normal respiratory effort Cardio: Rate: regular rate GI: Other: incision Back/Spine/Pelvis: Back: no CVA tenderness
[2025-03-26] MEDS: LIDOCAINE 5% PATCH 1 PATCH TRANSDERM (13:27)
[2025-03-26 19:20] VITALS: BP 142/89; PULSE 85; RESP 16; TEMP 36.9; O2SAT 98
[2025-03-27] MEDS: HYDROcodone/acetaminophen (*CRX) 5-325 MG TABLET 1 TAB PO (00:21)
[2025-03-27] MEDS: ACETAMINOPHEN 325 MG TABLET 650 MG PO ×2 (02:50→09:10)
[2025-03-27] MEDS: IBUPROFEN 600 MG TABLET PO ×2 (02:50→09:10)
--- NOTE | 2025-03-27 07:25 | P.PNOB_ITS ---
OB - PN: Subj Subjective Date/time seen: 03/27/25 07:25 Interval history: pp day 2 doing well passing flatus baby doing well Patient comments: no complaints, pain well controlled, incisional pain, tolerating diet and flatus present OB - PN: Obj Data Labs 03/25/25 04:26 OB - PN A/P Plan day: 2 Plan: routine care Comments: POD#2 LTCS - no problems, Time Spent With Patient Time: Total time spent is greater than 50% in coordination of care (as documented) at patient's floor/unit and/or counseling patient: Exam 2 Const: General: comfortable, no acute distress and alert Resp: Effort & Inspection: normal respiratory effort Auscultation: no crackles, no rales and no rhonchi Cardio: Rate: regular rate Heart sounds: no click, no murmurs and no rubs GI: Inspection: non-distended Auscultation: normal bowel sounds Other: Incision - CDI Extrem: General: normal to inspection, no pedal edema and no calf tenderness
--- NOTE | 2025-03-27 07:26 | P.DS_ITS ---
DS: Admitting Diagnosis Discharge Date 12/28/24 Admitting Diagnosis term DS: Discharge Diagnosis Discharge Diagnosis (1) delivery delivered: Code(s): O82 - Encounter for delivery without indication Status: Acute OB - DS: Summary OB Procedures : None OB Procedures Intrapartum: OB Procedures: : None Peripartum Data Procedures: Procedures Operation Date: 03/24/25 08:30 Actual Procedure Side Surgeon p Section Not Applicable Luisito Cee MD Time Spent with Patient Time attestation: Total time spent providing and/or coordinating discharge services: DS: Data Data Completed and Pending Pending studies at discharge: Pending at discharge 03/24/25 08:42 Surgical [PTH] Routine Discharge Plan Discharge Discharging Clinician: Luisito Cee Patient Disposition: Home Activity: pelvic rest Diet: regular Patient Instructions: Antibiotic Form Patient Language: [place] Stand Alone Forms: General Discharge Information Follow-up/Referrals: Luisito Cee MD [Physician] - Discharge Medications: New hydrocodone-acetaminophen 5-325 mg tablet 1 - 2 tablet PO Q6H PRN (Reason: pain) Qty: 25 0RF Continued valacyclovir 1 gram tablet 500 mg PO Q12H Vitamin Plus Low Iron 27 mg iron- 1 mg tablet 1 tablet PO Q24H ondansetron 4 mg tablet,disintegrating docusate sodium [Col-Rite] 100 mg capsule 100 mg PO BID Date of admission: 03/23/25 16:52 Primary Care Provider: PHYSICIAN NOT ON STAFF,NONSTAFF Admitting Provider: Luisito Cee Attending physician on admission: Luisito Cee Condition: Stable
[2025-03-27 07:35] VITALS: BP 120/72; PULSE 89; RESP 16; TEMP 37.2; O2SAT 96
--- NOTE | 2025-03-27 08:10 | PC.NURSE ---
Reviewed standard discharge information with patient including monitoring for required output, transition of stools, feeding 8-12 times every 24 hours, milk production, and follow up at [facility] and with harness racing handicapper in the first week of life. Parents are encouraged to take the feeding log and continue to track feedings and output for the first week . Offered outpatient resources with [facility] referral (declined) and Services at [facility]. Patient has the Mom/Baby Guide for further education and reference for common concerns (reviewed plugged ducts in detail as well as engorgement and mastitis), phone numbers, and guidance on when to call the doctor. A feeding plan was added to the ?s discharge plan. Patient states that she has no further questions or concerns regarding .???
[2025-03-27] MEDS: MULTIVIT/MIN/PREN/FOL AC/IRON TABLET 1 TAB PO (09:09)
[2025-03-27] MEDS: LORATADINE 10 MG TABLET PO (09:09)
[2025-03-27] MEDS: SIMETHICONE 80 MG TAB.CHEW PO (09:09)
[2025-03-27] MEDS: POLYSACCHARIDE IRON COMPLEX 150 MG CAPSULE PO (09:09)
[2025-03-27] MEDS: DOCUSATE SODIUM 100 MG CAPSULE PO (09:09)
[2025-03-27] MEDS: valACYclovir HCL 500 MG TABLET PO (09:10)
== END 2025-03-27 10:30 | disposition home or self-care (01) | DRG 540 ==
LOC: ANHLDR 03-24 08:50 → ANHOB2 03-24 11:48
PROVIDERS: Admitting Provider Obstetrics & Gynecology; Visit Provider Obstetrics & Gynecology
PROC: 10D00Z1 Extraction of Products of Conception, Low, Open Approach (ICD-10-PCS; CPT 59514; principal; 2025-03-24 08:30)
DX: O36.8330 Maternal care for abnormalities of the fetal heart rate or rhythm, third trimester, not applicable or unspecified (principal); Z37.0 Single live birth; Z3A.39 39 weeks gestation of pregnancy; O69.81X0 Labor and delivery complicated by cord around neck, without compression, not applicable or unspecified; O98.32 Other infections with a predominantly sexual mode of transmission complicating childbirth; A60.04 Herpesviral vulvovaginitis
CPT/HCPCS: 36415; 85025; 86593; 86703; 86850; 86900; 86901; 88307; 90715; A9270; G0432; J1885; J2004; J2270; J2274; J2405; J2590; J2795; J3010; J7120